=== PATIENT | female | born 1990 | race Caucasian/White ===

== ENCOUNTER → 2021-01-03 08:52 | Outpatient (BNVA) | payer MEDICAID, SELFPAY | PROVIDERS: Visit Provider Obstetrics & Gynecology | DX: O24.419 Gestational diabetes mellitus in pregnancy, unspecified control (principal); Z3A.00 Weeks of gestation of pregnancy not specified | CPT/HCPCS: 83036; 84315; 84443; 85025 ==

== ENCOUNTER → 2021-02-15 10:59 | Outpatient (BNVA) | payer MEDICAID, SELFPAY | PROVIDERS: Visit Provider Obstetrics & Gynecology | DX: O09.899 Supervision of other high risk pregnancies, unspecified trimester (principal); O24.419 Gestational diabetes mellitus in pregnancy, unspecified control | CPT/HCPCS: 84315; 87086 ==

== ENCOUNTER → 2021-03-06 08:29 | Outpatient (BNVA) | payer MEDICAID, SELFPAY | PROVIDERS: Visit Provider Obstetrics & Gynecology | DX: O24.419 Gestational diabetes mellitus in pregnancy, unspecified control (principal); O09.899 Supervision of other high risk pregnancies, unspecified trimester; O40.9XX0 Polyhydramnios, unspecified trimester, not applicable or unspecified; E66.01 Morbid (severe) obesity due to excess calories; Z3A.00 Weeks of gestation of pregnancy not specified | CPT/HCPCS: 84315; 87081 ==

== ENCOUNTER 2021-03-13 11:22 | Outpatient (CLI) | payer MEDICAID, SELFPAY ==
[2021-03-13 11:30] VITALS: BMI 47.6
[2021-03-13 11:35] VITALS: BP 132/77; PULSE 100
[2021-03-13 11:40] VITALS: RESP 18; TEMP 36.8
[2021-03-13 11:57] VITALS: BP 120/77; PULSE 98
[2021-03-13 12:13] VITALS: BP 120/77; PULSE 98
[2021-03-13 12:17] VITALS: BP 124/71; PULSE 95
== END 2021-03-13 12:37 | disposition home or self-care (01) ==
LOC: OBGYN 12:12 → OPOB 13:01 → OBGYN 03-14 10:08
PROVIDERS: Visit Provider Obstetrics & Gynecology
DX: O34.30 Maternal care for cervical incompetence, unspecified trimester (principal); Z3A.00 Weeks of gestation of pregnancy not specified
CPT/HCPCS: 59025; 84315; 99211

== ENCOUNTER → 2021-03-17 08:15 | Outpatient (BNVA) | payer MEDICAID, SELFPAY | PROVIDERS: Visit Provider Obstetrics & Gynecology | DX: O09.899 Supervision of other high risk pregnancies, unspecified trimester (principal); Z3A.00 Weeks of gestation of pregnancy not specified | CPT/HCPCS: 87635 ==

== ENCOUNTER 2021-03-22 19:47 | Inpatient (IN) | payer MEDICAID, SELFPAY ==
[2021-03-22 20:00] VITALS: BMI 47.2
[2021-03-22 20:06] VITALS: BP 135/82; PULSE 110
[2021-03-22 20:20] LABS: Glucose Point of Care 166 mg/dL (70-110)
[2021-03-22 20:40] VITALS: BP 110/69; PULSE 98; RESP 16; TEMP 36.7
[2021-03-22] MEDS: lactated ringers 1,000 ML 125 ML IV (21:15)
[2021-03-22] MEDS: miSOPROStol 100 mcg tablet 25 MCG VAGINAL (21:15)
[2021-03-22 21:21] LABS: Basophils % 0.2 %; Eosinophils # 0.1 10^3/uL (0.0-0.8); Eosinophils % 0.7 %; Hematocrit 38.4 % (37.0-47.0); Hemoglobin 13.2 g/dL (11.5-15.3); Lymphocytes # 1.8 10^3/uL (0.8-4.8); Lymphocytes % 20.1 %; Mean Corpuscular HGB Conc 34.4 g/dL (30.0-36.0); Mean Corpuscular Hemoglobin 29.9 pg (28.0-34.0); Mean Corpuscular Volume 86.9 fL (81-99); Mean Platelet Volume 12.5 fL (7.4-10.4); Monocytes # 0.4 10^3/uL (0.2-0.9); Monocytes % 4.1 %; Neutrophils # 6.59 10^3/uL (1.8-7.7); Neutrophils % 74.6 %; Nucleated Red Blood Cells % 0 %; Platelet Count 188 10^3/cmm (130-400); Red Blood Count 4.42 10^6/uL (4.1-5.3); Red Cell Distribution Width 13.5 % (12.1-15.1); White Blood Count 8.8 10^3/uL (4.0-10.0)
[2021-03-22 21:50] VITALS: BP 104/70; PULSE 98; RESP 16
[2021-03-22 22:56] VITALS: BP 122/89; PULSE 76; RESP 16
[2021-03-22 23:48] VITALS: BP 116/59; PULSE 75; RESP 16; TEMP 36.7
[2021-03-23] VITALS (71 sets, daily range): BP systolic 98–162; BP diastolic 51–92; PULSE 57–100; RESP 16; TEMP 36.6–37; O2SAT 98–100
[2021-03-23 00:05] LABS: Glucose Point of Care 88 mg/dL (70-110)
[2021-03-23] MEDS: miSOPROStol 100 mcg tablet 25 MCG VAGINAL ×3 (01:17→10:40)
[2021-03-23 04:09] LABS: Glucose Point of Care 93 mg/dL (70-110)
[2021-03-23 07:36] LABS: Glucose Point of Care 91 mg/dL (70-110)
--- NOTE | 2021-03-23 07:46 | P.PN_ITS ---
Subjective Subjective: Interval history: The patient has received three doses of cytotec overnight. Her cervix is 1/80/-3 She is doing well. Blood sugars have been normal, with the exception of the admission blood sugar. Vitals/I&O/Wt Last Vital Signs Temp 98.0 F 03/22/21 23:48 Pulse 70 03/23/21 07:30 Resp 16 03/22/21 23:48 BP 104/56 03/23/21 07:30 03/22/21 03/23/21 03/23/21 22:59 06:59 14:59 Intake Total 77.083 / 77.083 187.50 / 264.583 Balance 77.083 / 77.083 187.50 / 264.583 Weight last 48 hrs Weight 293 lb Weight 293 lb Physical Exam Const: COMMON NORMALS: no acute distress, patient oriented x3, no limitations, healthy appearing, alert and well nourished GENERAL APPEARANCE: cooperative, comfortable, well kempt and well developed ORIENTATION/CONSCIOUSNESS: Yes awake, Yes oriented to person, Yes oriented to place and Yes oriented to time GI: COMMON NORMALS: Soft to palpation and non-tender PALPATION: Yes Soft to palpation Extremity: COMMON NORMALS: no pedal edema NARRATIVE EXTREMITY EXAM: 1+ edema present Neuro: COMMON NORMALS: patient oriented x3 SENSORIUM/ORIENTATION: Yes alert, Yes oriented to person, Yes oriented to place and Yes oriented to time Psych: APPEARANCE: Yes well kempt Data : 03/22/21 20:30 A&P Assessment and plan (1) Supervision of other high-risk : plan pitocin induction today anticipate Status: Acute (2) Morbid obesity: Status: Acute (3) Gestational diabetes: Status: Acute Attestations Medical Necessity Statement*: The patient is being admitted for delivery. She will be here at least 2 midnights. Coding Level of Care Code Acute Geotechnical Engineering Technician for Sohan [facility]wkrzyszto[facility] Diagnoses Supervision of other high-risk O09.899 Morbid obesity E66.01 Gestational diabetes O24.419
--- NOTE | 2021-03-23 09:17 | PM.PN ---
Subjective Subjective: Interval history: 30-year-old female with an estimated gestational age at 39 weeks with gestational diabetes. Admitted last night for induction. Vitals/I&O/Wt Last Vital Signs Temp 98.0 F 03/22/21 23:48 Pulse 75 03/23/21 09:10 Resp 16 03/22/21 23:48 BP 113/56 03/23/21 09:10 03/22/21 03/23/21 03/23/21 22:59 06:59 14:59 Intake Total 77.083 / 77.083 187.50 / 264.583 35.417 / 35.417 Balance 77.083 / 77.083 187.50 / 264.583 35.417 / 35.417 Weight last 48 hrs Weight 132.903 kg Weight 132.903 kg Physical Exam Narrative: EXAM NARRATIVE: GA: Alert and oriented ?3. Lungs: Clear to auscultation bilaterally. Heart: Regular rhythm and rate. Abdomen: Gravid, full the height equals dates, nontender. DIRECTOR OF RESPIRATORY THERAPY: SVE; dilation: 1 cm, effacement: 20%, station: -3, presentation: vx, membranes: Intact. Extremities: no edema, no cyanosis, no calves pain. heart tracing: Basal rate: 140 bpm, Variability: Moderate, Accelerations: Present, Decelerations: Absent, Contraction: no. Data : 03/22/21 20:30 A&P Assessment and plan (1) Gestational diabetes: Patient admitted yesterday for induction. Misoprostol given x3, for cervical ripening, current Mai score 2. Will allow patient to have breakfast, & shower. Then one additional misoprostol intravaginally recommended to follow with low dose oxytocin 4 hours after last misoprostol. heart tracing category 1. Anticipate vagnial delivery. Status: Acute Qualifiers: Gestational diabetes mellitus control: oral hypoglycemic-controlled Trimester: third trimester Qualified Code(s): O24.415 - Gestational diabetes mellitus in , controlled by oral hypoglycemic drugs (2) Polyhydramnios: Status: Acute Qualifiers: Fetus number: single or unspecified fetus Trimester: third trimester Qualified Code(s): O40.3XX0 - Polyhydramnios, third trimester, not applicable or unspecified (3) Morbid obesity: Status: Acute Attestations Medical Necessity Statement*: In my professional opinion per admitting diagnosis. Coding Level of Care Code Acute Distribution Systems Superintendent for Chg Fwd Diagnoses Gestational diabetes O24.415 Gestational diabetes mellitus control: oral hypoglycemic-controlled Trimester: third trimester Polyhydramnios O40.3XX0 Fetus number: single or unspecified fetus Trimester: third trimester Morbid obesity E66.01
[2021-03-23 12:02] LABS: Glucose Point of Care 97 mg/dL (70-110)
[2021-03-23] MEDS: oxytocin 30 UNIT/500 ML BAG IV (14:34)
--- NOTE | 2021-03-23 15:17 | PM.PN ---
Subjective Subjective: Interval history: 30-year-old female with an estimated gestational age at 39 weeks with gestational diabetes. Admitted last night for induction. Vitals/I&O/Wt Last Vital Signs Temp 98.6 F 03/23/21 08:00 Pulse 57 L 03/23/21 14:57 Resp 16 03/23/21 10:10 BP 128/60 03/23/21 14:57 03/23/21 03/23/21 03/23/21 06:59 14:59 22:59 Intake Total 187.50 / 264.583 35.417 / 35.417 Balance 187.50 / 264.583 35.417 / 35.417 Weight last 48 hrs Weight 132.903 kg Weight 132.903 kg Physical Exam Narrative: EXAM NARRATIVE: GA: Alert and oriented ?3. Lungs: Clear to auscultation bilaterally. Heart: Regular rhythm and rate. Abdomen: Gravid, full the height equals dates, nontender. TRAVELING SALES EXECUTIVE: SVE; dilation: 1cm, effacement: 80%, station: -3, presentation: vx, membranes: Intact. Extremities: no edema, no cyanosis, no calves pain. heart tracing: Basal rate: 140's bpm, Variability: Moderate, Accelerations: Present, Decelerations: Absent, Contraction: Irregular. Data : 03/22/21 20:30 A&P Assessment and plan (1) Gestational diabetes: Patient admitted yesterday for induction. Misoprostol given x4, for cervical ripening, current Mai score 6. heart tracing category 1. We will start with a low dose oxytocin. Anticipate vagnial delivery. Status: Acute Qualifiers: Gestational diabetes mellitus control: oral hypoglycemic-controlled Trimester: third trimester Qualified Code(s): O24.415 - Gestational diabetes mellitus in , controlled by oral hypoglycemic drugs (2) Polyhydramnios: Status: Acute Qualifiers: Fetus number: single or unspecified fetus Trimester: third trimester Qualified Code(s): O40.3XX0 - Polyhydramnios, third trimester, not applicable or unspecified (3) Morbid obesity: Status: Acute Attestations Medical Necessity Statement*: In my professional opinion per admitting diagnosis Coding Level of Care Code Acute Assurance Engineer for [facility] Diagnoses Gestational diabetes O24.415 Gestational diabetes mellitus control: oral hypoglycemic-controlled Trimester: third trimester Polyhydramnios O40.3XX0 Fetus number: single or unspecified fetus Trimester: third trimester Morbid obesity E66.01
[2021-03-23 16:09] LABS: Glucose Point of Care 86 mg/dL (70-110)
[2021-03-23] MEDS: lactated ringers 1,000 ML 125 ML IV ×2 (16:10→21:00)
[2021-03-23] MEDS: lactated ringers 1,000 ML 999 ML IV (19:56)
--- NOTE | 2021-03-23 20:28 | P.ANESUD_ITS ---
Pre-Anesthetic Update Pre-Anesthetic Assessment: Date of Surgery/Procedure: 03/23/21 Preop Joi gnosis: IUP Any changes to Pre-Anesthetic Assessment?: No Last Intake: 1900 solids and liquids Labs Last 48hrs: Laboratory Results - last 48 hr 03/22/21 03/22/21 03/23/21 20:17 20:30 00:01 WBC 8.8 RBC 4.42 Hgb 13.2 Hct 38.4 MCV 86.9 MCH 29.9 MCHC 34.4 RDW 13.5 Plt Count 188 MPV 12.5 H Neut % (Auto) 74.6 Lymph % (Auto) 20.1 [place] % (Auto) 4.1 Eos % (Auto) 0.7 Baso % (Auto) 0.2 Neut # (Auto) 6.59 Lymph # (Auto) 1.8 [place] # (Auto) 0.4 Eos # (Auto) 0.1 Baso # (Auto) 0.0 Nucleated RBC % (a uto) 0 Nucleated RBCs # 0.0 POC Glucose 166 H 88 03/23/21 03/23/21 03/23/21 04:04 07:04 11:57 WBC RBC Hgb Hct MCV MCH MCHC RDW Plt Count MPV Neut % (Auto) Lymph % (Auto) [place] % (Auto) Eos % (Auto) Baso % (Auto) Neut # (Auto) Lymph # (Auto) [place] # (Auto) Eos # (Auto) Baso # (Auto) Nucleated RBC % (a uto) Nucleated RBCs # POC Glucose 93 91 97 03/23/21 16:05 WBC RBC Hgb Hct MCV MCH MCHC RDW Plt Count MPV Neut % (Auto) Lymph % (Auto) [place] % (Auto) Eos % (Auto) Baso % (Auto) Neut # (Auto) Lymph # (Auto) [place] # (Auto) Eos # (Auto) Baso # (Auto) Nucleated RBC % (a uto) Nucleated RBCs # POC Glucose 86 Vitals: Temperature 97.8 F 03/23/21 19:20 Temperature Source Tympanic 03/23/21 19:20 Pulse Rate 65 03/23/21 20:03 Pulse Rhythm 03/22/21 20:00 Pulse Strength 3+ Normal 03/22/21 20:00 Respiratory Rate 16 03/23/21 17:46 Respiratory Effort Non-Labored 03/22/21 20:00 Respiratory Depth Normal 03/22/21 20:00 Respiratory Patter n 03/22/21 20:00 Blood Pressure 115/60 03/23/21 20:03 Blood Pressure Rhona n 81 03/22/21 21:50 Blood Pressure Pos ition Semi Fowlers 03/22/21 21:50 Oxygen Delivery Me thod 03/23/21 08:15 Exam: Pre-Anes Outpt Exam: alert, oriented x 3 and clear to auscultation bilaterally Cardiac Studies: No Data to Display
[2021-03-23 21:57] LABS: Glucose Point of Care 118 mg/dL (70-110)
[2021-03-24] VITALS (88 sets, daily range): BP systolic 94–171; BP diastolic 47–123; PULSE 68–123; RESP 14–22; TEMP 36.6–37.9; O2SAT 97–100
[2021-03-24 00:20] LABS: Glucose Point of Care 98 mg/dL (70-110)
[2021-03-24 03:03] LABS: Glucose Point of Care 92 mg/dL (70-110)
[2021-03-24] MEDS: lactated ringers 1,000 ML 125 ML IV ×2 (04:40→12:21)
--- NOTE | 2021-03-24 08:43 | ANES.PROC ---
Anesthesia Procedures Procedure/Date: 03/24/21 epidural Epidural: Time Out Performed: Yes Consents Signed: Procedure Consent Consent: requested by attending/covering physician and from patient Lumbar Level: L3-L4 Epidural position: sitting Epidural procedure: sterile prep of area, 1% lidocaine to numb the area, negative for paresthesia passed, test dose given, no systemic response, sterile dressing applied and 0.2% Ropiavacaine @ mls/hr Additional Comments: CHIQUITA at 8 cm, Catheter threaded to 15 cm bolus 1% lidocaine 5 ml (4 attempts.)
--- NOTE | 2021-03-24 08:44 | P.PN_ITS ---
MEDICAL CHEMIST Subjective Subjective: Interval history: The patient had dinner and AROM was performed at 2000 hours due to decelerations with pitocin earlier in the evening. Pitocin was re-started due to ineffective contraction pattern. She received an epidural for pain management and was able to rest most of the night. The patient has made cervical change and is now 8 cm dilation. She continues to have occasional decelerations that are resolved with position changes. Variability is good and patient is ayaz about every 2-3 minutes. Status overall remains very reassuring. Labor: Station: -1 Amniotic Membrane Status: Ruptured Monitor Mode: External Contraction Pattern: Regular Status: Category I Vitals/I&O/Wt Last Vital Signs Temp 99.2 F 03/24/21 04:48 Pulse 90 03/24/21 08:39 Resp 16 03/23/21 17:46 BP 129/58 03/24/21 08:39 Pulse Ox 98 03/23/21 22:16 03/23/21 03/24/21 03/24/21 22:59 06:59 14:59 Intake Total 1608.634 / 9961.871 9848.517 / 2709.568 Output Total 600 / 600 Balance 1608.634 / 1644.051 465.517 / 2109.568 Weight last 48 hrs Weight 293 lb Weight 293 lb Physical Exam Urinary Catheter Management^: Carbajal: Cath Placed During This Visit: yes Reason for Continuing Indwelling Catheter: Required Immobilization for Trauma or Surgery or Anesthesia Urinary Catheter Date of Insertion: 03/23/21 Urinary Catheter Time of Insertion: 21:48 Data : 03/22/21 20:30 A&P Assessment and plan (1) Supervision of other high-risk : continue with pitocin induction plan to start antibiotics if fever or 18 hours of ROM baby is small, vaginal delivery should be possible for this patient anticipate Status: Acute (2) Morbid obesity: Status: Acute (3) Gestational diabetes: Status: Acute Qualifiers: Gestational diabetes mellitus control: oral hypoglycemic-controlled Trimester: third trimester Qualified Code(s): O24.415 - Gestational diabetes mellitus in , controlled by oral hypoglycemic drugs Attestations Medical Necessity Statement*: The patient has been here for two midnights already, through induction. anticipate delivery today. Coding Level of Care Code Acute Analyst Microbiology Lab for g Fwd Diagnoses Supervision of other high-risk O09.899 Morbid obesity E66.01 Gestational diabetes O24.415 Gestational diabetes mellitus control: oral hypoglycemic-controlled Trimester: third trimester
[2021-03-24 08:57] LABS: Glucose Point of Care 92 mg/dL (70-110)
[2021-03-24 13:12] LABS: Glucose Point of Care 100 mg/dL (70-110)
--- NOTE | 2021-03-24 17:40 | PM.OBGYPN ---
CERTIFIED MAINTENANCE WELDER Subjective Subjective: Interval history: The patient has been complete and pushing, then resting and trial of pushing again, for over 2 hours. The baby is getting more caput and is not moving station at all. I have spoken with her about a and she agrees to proceed. I have discussed risks and benefits and alternatives. Labor: Station: +2 Amniotic Membrane Status: Ruptured Monitor Mode: External Contraction Pattern: Regular Status: Category I Vitals/I&O/Wt Last Vital Signs Temp 98.8 F 03/24/21 14:10 Pulse 75 03/24/21 16:25 Resp 22 H 03/24/21 14:10 BP 134/75 03/24/21 16:25 Pulse Ox 98 03/23/21 22:16 03/24/21 03/24/21 03/24/21 06:59 14:59 22:59 Intake Total 1065.517 / 2709.568 1089.584 / 1089.584 100 / 1189.584 Output Total 600 / 600 Balance 465.517 / 2109.568 1089.584 / 1089.584 100 / 1189.584 Weight last 48 hrs Weight 293 lb Weight 293 lb Physical Exam Urinary Catheter Management^: Carbajal: Cath Placed During This Visit: yes Reason for Continuing Indwelling Catheter: Required Immobilization for Trauma or Surgery or Anesthesia Urinary Catheter Date of Insertion: 03/23/21 Urinary Catheter Time of Insertion: 21:48 Data : 03/22/21 20:30 A&P Assessment and plan (1) Supervision of other high-risk : will proceed with section Risks, benefits and alternatives to procedure were discussed with the patient including but not limited to: pain, bleeding, infection, development of a blood clot or pulmonary embolism, damage to bowel, bladder, ureters, blood vessels, formation of scar tissue or even . . These are the most common complications, but there may be other, unforseen complications that could arise during surgery. The patient accepts these risks and desires to proceed. Status: Acute (2) Morbid obesity: Status: Acute (3) Gestational diabetes: Status: Acute Qualifiers: Gestational diabetes mellitus control: oral hypoglycemic-controlled Trimester: third trimester Qualified Code(s): O24.415 - Gestational diabetes mellitus in , controlled by oral hypoglycemic drugs Attestations Medical Necessity Statement*: The patient has already been admitted for two midnights. Coding Level of Care Code Acute Art Preparator for g Fwd Diagnoses Supervision of other high-risk O09.899 Morbid obesity E66.01 Gestational diabetes O24.415 Gestational diabetes mellitus control: oral hypoglycemic-controlled Trimester: third trimester
--- NOTE | 2021-03-24 17:41 | PC.RESP ---
Smoking Cessation information sent to patient.
[2021-03-24] MEDS: metoclopramide 5 mg/mL SDV 2 mL 10 MG IV (17:49)
[2021-03-24] MEDS: famotidine 20 mg/2 mL INJ IVP (17:52)
[2021-03-24] MEDS: lactated ringers 1,000 ML 999 ML IV (17:54)
[2021-03-24] MEDS: citric acid-sodium citrate 30 mL UDC PO (18:03)
--- NOTE | 2021-03-24 19:20 | P.OP_ITS ---
Operative Report Date of procedure: March 24, 2021 Pre-op Diagnosis: IUP at 39 1/7 failure to progress Post-op diagnosis: same Post-op Findings: term female in the ROP presentation Procedure Done: primary Specimens removed/disposition: placenta Pathology: none sent Anesthesia: Epidural Estimated blood loss (mL): 500 IV fluids (mL): 1,000 Urine output (mL): 100 Complications: none Condition: stable Disposition: PACU Procedure: The patient was taken to the operating room where spinal anesthesia was administered and found to be adequate. She was prepped and draped in the normal sterile fashion in the dorsal supine position with a leftward tilt. A Pfannenstiel skin incision was made and carried down to the underlying layer of fascia. The fascia was nicked in the midline and extended laterally with the Sullivan scissors. The fascia was then tented up and the rectus muscles dissected off sharply. The rectus muscles were and the peritoneum entered bluntly with the digit. The peritoneal incision was extended superiorly and inferiorly with good visualization of the bladder. The Kevon O retractor was placed. It was clear of any bowel or omentum. The bladder flap was created sharply with the Metzenbaum scissors. A low transverse uterine incision was made and carried down to the bag of water. The bag of water was ruptured and the uterine incision extended cephalocaudad. The scalp was grasped and brought through the incision. The nose and mouth were bulb suctioned. The shoulders and body delivered atraumatically. The baby was allowed to rest, while being dried, for 1 minute and then the cord was clamped and cut. The baby was handed to the waiting pickers material handlers. The placenta was delivered by expression. The uterus was exteriorized and cleared of all clots and debris. The uterine incision was closed with 0 Vicryl in a running fashion. A second imbricating layer of 3-0 Monocryl was used to close the uterus. The bladder flap was closed with 3-0 Monocryl. There was excellent hemostasis. The Kevon O retractor was removed. The uterus was returned to the abdomen. The peritoneum was closed with 3-0 Monocryl, incorporating the rectus muscle. The fascia was closed with 0 Vicryl in 2 separate sutures overlapping in the midline. The skin was closed with absorbable tamara. Apgars on baby 8 at 1 minute and 9 at 5 minutes. weight 7 pounds 4 ounces. Mother and baby were stable post delivery.
--- NOTE | 2021-03-24 19:55 | PC.NURSE ---
Patient to PP room 9 from OR. JOE RN
[2021-03-24] MEDS: ketorolac 30 mg/mL INJ IVP (20:17)
--- NOTE | 2021-03-24 21:43 | ANE.PACU2 ---
Inpatient post-anesthesia follow up: Airway intact: Yes Vital signs: Temperature 98.3 F Pulse Rate 85 Respiratory Rate 22 Blood Pressure 129/60 Pulse Oximetry 98 Oxygen Delivery Me thod Room Air Oxygen Flow Rate Fraction of Inspir ed Oxygen Hydration adequate: Yes Nausea and vomiting: No Pain level: 2 Mental status: Baseline
[2021-03-24] MEDS: ondansetron 2 mg/ML SDV 2 mL 4 MG IVP (22:58)
[2021-03-24] MEDS: HYDROcodone-acetaminophen 5-325 mg Tablet PO (22:58)
[2021-03-25] VITALS (9 sets, daily range): BP systolic 81–129; BP diastolic 49–93; PULSE 62–92; RESP 12–18; TEMP 36.6–36.7; O2SAT 97–100
[2021-03-25] MEDS: sodium chloride 0.9% 500 ML 999 ML IV ×2 (01:47→06:47)
[2021-03-25] MEDS: lactated ringers 1,000 ML 125 ML IV (01:48)
[2021-03-25] MEDS: oxytocin 30 UNIT/500 ML BAG 20 UNIT IV (01:48)
[2021-03-25] MEDS: ketorolac 30 mg/mL INJ IVP ×2 (02:56→08:30)
--- NOTE | 2021-03-25 04:00 | PC.NURSE ---
Patient to chair with standby assist. Tolerates activity well. Bedding changed by this nurse. AR RN
[2021-03-25] MEDS: docusate sodium 100 mg Capsule PO (08:30)
--- NOTE | 2021-03-25 09:30 | PC.NURSE ---
Pt ambulated in hallway and around OB unit x2. Pt tolerated well and had no complaints light headedness or dizziness.
[2021-03-25] MEDS: ibuprofen 800 mg tablet PO (15:28)
[2021-03-25 17:40] LABS: Hematocrit 33.8 % (37.0-47.0); Hemoglobin 10.6 g/dL (11.5-15.3); Mean Corpuscular HGB Conc 31.4 g/dL (30.0-36.0); Mean Corpuscular Hemoglobin 29.9 pg (28.0-34.0); Mean Corpuscular Volume 95.2 fL (81-99); Mean Platelet Volume 11.9 fL (7.4-10.4); Platelet Count 158 10^3/cmm (130-400); Red Blood Count 3.55 10^6/uL (4.1-5.3); White Blood Count 11.8 10^3/uL (4.0-10.0)
[2021-03-25] MEDS: HYDROcodone-acetaminophen 5-325 mg Tablet PO (19:39)
[2021-03-26] MEDS: HYDROcodone-acetaminophen 5-325 mg Tablet PO ×3 (00:16→10:43)
[2021-03-26] MEDS: docusate sodium 100 mg Capsule PO (08:07)
[2021-03-26] MEDS: ibuprofen 800 mg tablet PO (08:07)
--- NOTE | 2021-03-26 10:11 | P.DS_ITS ---
Discharge Providers EXT JS DEVELOPER Date of Admission: 03/22/21 19:47 Date of Discharge: 03/26/21 Attending Provider at Admission: Lewis Fabian MD Attending Provider at Discharge: Lewis Fabian MD Diagnoses at Discharge Discharge Diagnosis (1) Supervision of other high-risk : Status: Acute (2) Morbid obesity: Status: Acute (3) Gestational diabetes: Status: Acute Qualifiers: Gestational diabetes mellitus control: oral hypoglycemic-controlled Trimester: third trimester Qualified Code(s): O24.415 - Gestational diabetes mellitus in , controlled by oral hypoglycemic drugs Reason for Visit Reason for Visit: IOL Hospital Course Hospital Course Ms. Mckinley is a 30 year old G1 transfer patient with LMP of 06/23/2020, and an LUPE 03/30/2021, based on her LMP and consistent with 9 week ultrasound, placing her at 38 6/7 weeks On admission. has been complicated with gestational diabetes, morbid obesity and polyhydramnios. She was admitted for induction, misoprostol was given for cervical ripening and then she was started on oxytocin. She progressed to fully dilation but failed to descend and a primary delivery was performed without complication. He is status post primary delivery postoperative day 2. Post delivery observation has been uneventful, except for pain as the patient did not take pain medication as scheduled. She is afebrile and hemodynamically stable. Tolerating diet well. Passing flatus. Patient instructed to follow-up with Dr. Bhakta in 2 weeks. Information Peripartum Data: Delivery Method: Physical Exam Narrative: EXAM NARRATIVE: GA; alert and oriented x 3 HEENT: normal Breasts: engorged Nipples - skin intact Lungs; clear to auscultation Heart: regular rhythm, no murmurs. Abd: Appropriately tender. BS+. Uterine fundus below umbilicus. No Fundal Tenderness, incision clean and dry, no redness, pain or edema.. Perineum: normal lochia. Extremities: no edema, no cyanosis, no tenderness. Urinary Catheter Management^: Carbajal: Cath Placed During This Visit: yes, but has since been removed by the nurse Reason for Continuing Indwelling Catheter: Decision to DC Catheter Urinary Catheter Date of Insertion: 03/23/21 Urinary Catheter Time of Insertion: 21:48 Date Urinary Catheter Removed: 03/25/21 Time Urinary Catheter Discontinued: 15:10 Discharge Data Data Completed and Pending: Labs from last 24 hours 03/25/21 17:25 WBC 11.8 H RBC 3.55 L Hgb 10.6 L Hct 33.8 L MCV 95.2 MCH 29.9 MCHC 31.4 RDW 14.0 Plt Count 158 MPV 11.9 H Vitals: Last Vital Signs Temp 97.9 F 03/25/21 09:45 Pulse 66 03/25/21 22:00 Resp 12 03/25/21 22:00 BP 102/67 03/25/21 22:00 Pulse Ox 100 03/25/21 22:00 Discharge Plan Discharge Patient Disposition: Home Condition: Stable Prescriptions: New ibuprofen 800 mg tablet 800 mg PO TID PRN (Reason: pain) Qty: 60 RF: 0 hydrocodone-acetaminophen 5-325 mg tablet 1 tab PO Q4H PRN (Reason: pain) Qty: 30 RF: 0 ferrous sulfate 325 mg (65 mg iron) tablet 325 mg PO BID Qty: 60 RF: 0 acetaminophen 325 mg capsule 325 mg PO Q4H PRN (Reason: fever or pain) Qty: 60 RF: 0 Continued Flintstones Multivitamin Tablet,Chewable 2 tab PO DAILY RF: 0 metformin 500 mg tablet 750 mg PO DAILY RF: 0 (DME) lancets [OneTouch Delica Lancets] 33 gauge misc See Rx Instructions .ROUTE .MEDSUPPLY Qty: 100 RF: 3 (DME) OneTouch Verio test strips Strip See Rx Instructions .ROUTE .MEDSUPPLY Qty: 100 RF: 3 Discharge Orders: Discharge Order (Routine); Ordered 03/26/21 Ordered By: Lewis Fabian Referrals: Linda Bhakta MD [Physician] - 2 weeks Discharge Diet: Diabetic Discharge Activity: Increase activity as tolerated Patient Instructions: Section (DC), Your 's Appearance (DC), Caring for Your Baby (GEN), Lay Person CPR on Newborns (DC), Bleeding (DC), Opioid Safety Activity Restrictions/Additional Instructions: 1. Please call [facility] on next working day to make your post-operative appointment in 2 weeks. 2. Please stay home until you come back to the clinic on first post-operative check up. 3. Please follow instructions on your medications CAREFULLY. 4. If you have abdominal incision, do not cover it unless dressing is necessary because of drainage. OK to shower, but avoid bath. Leave steri-strips until they fall off. If they are still on one week after surgery, you may remove them. 5. If you had vaginal surgery or vaginal repair, Dr. Bhakta may instruct you to take SITZ bath. 6. Yellow, blood tinged odorous vaginal discharge is usually normal after hysterectomy or vaginal surgeries. 7. No sexual intercourse, tampons, or douches until you are completely released from the post-operative care. 8. Avoid constipation by eating right and maybe using some Metamucil or Milk of Magnesia. 9. All prescription refills are given during the working hours. Please do no wait till it runs out. Call the clinic at [phone] before your medication runs out. The clinic will get in touch with your doctor to prescribe medications if necessary. 10. Please remain within 40 mile radius from our hospital because emergencies do happen now and then during the post-operative period. 11. If you have stairs at home, take one step at a time slowly and minimize the number of trips. It helps to stay in one floor for the next few days. No lifting except what you can lift by one hand until you are released from the post-operative care. 12. Driving is discouraged until you are well healed. It may be 3-4 weeks before you feel strong enough to drive. You should be able to turn and look through the rear window without pain and you should be able to push the brake pedal very hard without pain before you drive. No fast rules, but SAFETY should be your primary concern. DO NOT drive if you are on sedating medications such as narcotics. 13. Call the clinic (during working hours) to make urgent appointment or go to the Emergency room, if any of the following occurs: i. Vaginal bleeding becomes heavy, more than a period. ii. Incision becomes red and sore, or drains pus. iii. Your temperature is over 100.4 or you have chill. iv. IV site becomes red and swollen (a little ``knot?? is usually OK) v. Persistent nausea and vomiting vi. Persistent constipation or diarrhea vii. Rash or allergic reaction to medications. Discharge Attestations EXT JS DEVELOPER Time Spent in Discharge Care*: greater than 30 min Coding Level of Care Code Acute Bookkeeping Teacher for Sohan Fwd Diagnoses Supervision of other high-risk O09.899 Morbid obesity E66.01 Gestational diabetes O24.415 Gestational diabetes mellitus control: oral hypoglycemic-controlled Trimester: third trimester
[2021-03-26 10:47] VITALS: BP 109/71; PULSE 71; RESP 15; TEMP 36.4; O2SAT 99
== END 2021-03-26 11:31 | disposition home or self-care (01) | DRG 788 ==
LOC: OBGYN 03-23 01:48 → OPOB 03-23 08:00 → OBGYN 03-23 08:00
PROVIDERS: Obstetrics & Gynecology; Admitting Provider Obstetrics & Gynecology; Visit Provider Obstetrics & Gynecology
PROC: 10D00Z1 Extraction of Products of Conception, Low, Open Approach (ICD-10-PCS; CPT 59514; principal; 2021-03-24 18:00)
DX: O32.4XX0 Maternal care for high head at term, not applicable or unspecified (principal); O24.425 Gestational diabetes mellitus in childbirth, controlled by oral hypoglycemic drugs; O99.214 Obesity complicating childbirth; E66.01 Morbid (severe) obesity due to excess calories; O40.3XX0 Polyhydramnios, third trimester, not applicable or unspecified; O76 Abnormality in fetal heart rate and rhythm complicating labor and delivery; Z3A.38 38 weeks gestation of pregnancy; Z37.0 Single live birth
CPT/HCPCS: 36415; 36416; 51702; 59025; 59409; 82962; 85025; 85027; 96374; 96375; J0690; J1885; J2250; J2274; J2405; J2765; J2795; J3010; J3370; J3490; J7040; J7050

== ENCOUNTER 2021-03-29 13:34 | Emergency (ER) | payer MEDICAID, SELFPAY ==
[2021-03-29 14:08] VITALS: BP 131/74; PULSE 68; RESP 16; TEMP 36.7; O2SAT 100; BMI 41.9
--- NOTE | 2021-03-29 17:13 | ED_ITS ---
HPI - Skin/Abscess/Foreign Bdy General: Chief complaint: Skin/Abscess/Foreign Body Stated complaint: pain and substance coming from incision Time Seen by Provider: 03/29/21 17:05 History of Present Illness: HPI narrative: Patient concerned that her C- section wound is draining. She had a 5 days ago. She denies any fever chills. MD complaint: other ( wound drainage possible) Onset (ago): hour(s) Associated symptoms: Deny chills or fever(s) Review of Systems Const: Denies: fever(s) or chills Skin/Breast: Reports: other (She thinks may be that there is some drainage from her wound.) Psych: Denies: anxiety or depression PFSH ED PFSH: Family History Mother Diabetes Ovarian cyst Grandfather Diabetes maternal Hypertension maternal Stroke maternal Grandmother Diabetes maternal Denies family history of CAD (coronary artery disease) Clotting disorder Hyperlipidemia Chronic kidney disease (CKD) Anesthesia complication Bleeding disorder Cancer Social History Smoking and tobacco status: current every day smoker cigarettes Packs smoked per day: 1 Alcohol intake: never Physical Exam Const: COMMON NORMALS: no acute distress Psych: COMMON NORMALS: mental status grossly normal Skin: OTHER: Surgical incision is intact no drainage no no redness or erythema. Course Vital Signs: Vital signs: Vital Signs Temperature 98.0 F 03/29/21 14:08 Pulse Rate 68 03/29/21 14:08 Respiratory Rate 16 03/29/21 14:08 Blood Pressure 131/74 03/29/21 14:08 Pulse Oximetry 100 03/29/21 14:08 Discharge Plan Discharge Patient Disposition: Home Clinical Impression: Skin wound from surgical incision Condition: Stable Prescriptions: No Action ibuprofen 800 mg tablet 800 mg PO TID PRN (Reason: pain) Qty: 60 RF: 0 hydrocodone-acetaminophen 5-325 mg tablet 1 tab PO Q4H PRN (Reason: pain) Qty: 30 RF: 0 ferrous sulfate 325 mg (65 mg iron) tablet 325 mg PO BID Qty: 60 RF: 0 acetaminophen 325 mg capsule 325 mg PO Q4H PRN (Reason: fever or pain) Qty: 60 RF: 0 docusate sodium [Colace] 100 mg capsule 100 mg PO BID Qty: 60 RF: 0 Discharge Orders: Discharge ED (Routine); Ordered 03/29/21 Ordered By: Lai Deras Discharge Diet: Usual diet Discharge Activity: Resume usual activity Activity Restrictions/Additional Instructions: Follow-up with your MATERIALS BUYER as necessary. Keep wound clean and dry. Coding Level of Care Code ED Licensed Embalmer Supervisor for Sohan Mobley
== END 2021-03-29 17:18 | disposition home or self-care (01) ==
PROVIDERS: Emergency Provider Nurse Practitioner Family
DX: O86.00 Infection of obstetric surgical wound, unspecified (principal); F17.210 Nicotine dependence, cigarettes, uncomplicated
CPT/HCPCS: 99281

== ENCOUNTER → 2021-05-10 13:07 | Outpatient (BNVA) | payer MEDICAID, SELFPAY | PROVIDERS: PCP Nurse Practitioner Family; Visit Provider Nurse Practitioner Family | DX: M47.894 Other spondylosis, thoracic region (principal); M54.5 Low back pain; M54.6 Pain in thoracic spine | CPT/HCPCS: 72072; 72100 ==

== ENCOUNTER → 2021-05-11 14:34 | Outpatient (BNVA) | payer MEDICAID, SELFPAY | PROVIDERS: PCP Nurse Practitioner Family; Visit Provider Obstetrics & Gynecology | DX: Z39.2 Encounter for routine postpartum follow-up (principal); Z30.9 Encounter for contraceptive management, unspecified; Z30.017 Encounter for initial prescription of implantable subdermal contraceptive | CPT/HCPCS: 81000 ==

== ENCOUNTER → 2021-06-30 15:48 | Outpatient (BNVA) | payer MEDICAID, SELFPAY | PROVIDERS: PCP Nurse Practitioner Family; Visit Provider Nurse Practitioner Family | DX: R10.9 Unspecified abdominal pain (principal); K29.00 Acute gastritis without bleeding | CPT/HCPCS: 81000 ==

== ENCOUNTER → 2021-09-05 11:39 | Outpatient (BNVA) | payer MEDICAID, SELFPAY | PROVIDERS: PCP Nurse Practitioner Family; Visit Provider Nurse Practitioner Family | DX: R00.2 Palpitations (principal); Z13.6 Encounter for screening for cardiovascular disorders; R73.9 Hyperglycemia, unspecified | CPT/HCPCS: 80053; 80061; 83036; 84443; 85025 ==

== ENCOUNTER 2021-10-03 16:31 | Outpatient (CLI) | payer MEDICAID, SELFPAY ==
--- NOTE | 2021-10-03 16:45 | MR_ITS ---
WS: [id number] MRI LUMBAR SPINE NONCONTRAST TECHNIQUE: Sagittal T1, T2 and STIR imaging. Axial T1 and T2 imaging. CLINICAL INFORMATION: M54.50 - Low back pain, unspecified COMPARISON: None. FINDINGS: Normal lumbar alignment. No acute compression. Mild disc bulging L4-5 and L5-S1 with tiny annular fis sures. L1-L2: Normal. L2-L3: Normal L3-L4: No significant disc bulging. Spinal canal and foramen are patent. Mild facet arthropathy. L4-L5: Mild annular bulging with a shallow central protrusion and tiny annular tear. Slight effacemen t of ventral thecal sac. Slight impingement traversing right L5 nerve root in the subarticular recess . Mild facet arthropathy. Foramen are patent. L5-S1: Mild annular bulging with slight effacement of the ventral thecal sac. Tiny right pericentral shallow protrusion and tiny annular tear. Slight encroachment on the right S1 nerve root without sign ificant impingement. Spinal canal and foramen are patent. Mild facet arthropathy. Visualized pelvic bony structures: Normal. Paravertebral soft tissues: Normal. MR/MR lumbar spine wo con* [id number] IMPRESSION: 1. Mild lumbar curve. No acute compression. 2. Shallow central protrusion L4-5 with tiny annular fissure and slight imping ement traversing right L5 nerve root. Recommend correlation for right L5 nerve root symptoms. 3. Tiny shallow right pericentral protrusion L5-S1 with a small annular fissur e. Slight encroachment on the right S1 nerve root. 4. Mild facet arthropathy L4-L5 and L5-S1.
== END 2021-10-03 16:32 | disposition home or self-care (01) ==
LOC: RADSHAW 16:35
PROVIDERS: PCP Nurse Practitioner Family; Visit Provider Nurse Practitioner Family
DX: M51.26 Other intervertebral disc displacement, lumbar region (principal); M51.27 Other intervertebral disc displacement, lumbosacral region; M47.816 Spondylosis without myelopathy or radiculopathy, lumbar region; M47.817 Spondylosis without myelopathy or radiculopathy, lumbosacral region
CPT/HCPCS: 72148

== ENCOUNTER → 2021-10-17 08:47 | Outpatient (BNVA) | payer MEDICAID, SELFPAY | PROVIDERS: PCP Nurse Practitioner Family; Referring Provider Nurse Practitioner Family; Visit Provider Physician Assistant | DX: M54.50 Low back pain, unspecified (principal); M51.37 Other intervertebral disc degeneration, lumbosacral region | CPT/HCPCS: 72110 ==

== ENCOUNTER → 2021-10-20 13:55 | Outpatient (BNVA) | payer MEDICAID, SELFPAY | PROVIDERS: PCP Nurse Practitioner Family; Visit Provider Nurse Practitioner Family | DX: R39.9 Unspecified symptoms and signs involving the genitourinary system (principal); N64.4 Mastodynia; R35.0 Frequency of micturition | CPT/HCPCS: 36416; 81000; 81025; 82962 ==

== ENCOUNTER 2021-11-17 06:00 | Outpatient (RCR) | payer MEDICAID, SELFPAY | END 2021-12-04 23:59 | disposition home or self-care (01) | LOC: APT 06:00 | PROVIDERS: PCP Nurse Practitioner Family; Referring Provider Physician Assistant; Visit Provider Physician Assistant | DX: M54.50 Low back pain, unspecified (principal); G89.29 Other chronic pain | CPT/HCPCS: 97110; 97163 ==

== ENCOUNTER 2021-11-24 11:31 | Outpatient (CLI) | payer MEDICAID, SELFPAY ==
--- NOTE | 2021-11-24 11:45 | USCV_ITS ---
Talia Mckinley Age: 31 Gender: F : 1990 Exam Date: 11/24/2021 12:16 Ordering Phys: David Johnson M.D ([email or web address]) Technologist: LEONARD Exam Location: [facility] [place] Indication: PALPITATIONS BP: 122 / 76 HR: 74 Rhythm: Sinus Technical Quality: Adequate MEASUREMENTS (Male / Female) Normal Values 2D ECHO LV Diastolic Diameter PLAX 2.8 cm 4.2 - 5.9 / 3.9 - 5.3 cm LV Systolic Diameter PLAX 1.8 cm IVS Diastolic Thickness 1.1 cm 0.6 - 1.0 / 0.6 - 0.9 cm IVS Systolic Thickness 1.2 cm LVPW Diastolic Thickness 1.7 cm 0.6 - 1.0 / 0.6 - 0.9 cm LVPW Systolic Thickness 1.8 cm LVOT Diameter 2.0 cm LV Ejection Fraction 2D Teich 68.2 % LV Ejection Fraction MOD 2C 68.6 % LV Ejection Fraction 2C AL 68.6 % LA Diameter 3.2 cm LA Width 3.2 cm LA Height 4.5 cm RA Width 3.9 cm RA Height 4.0 cm Aorta at Sinotubular Diameter 2.1 cm M-MODE Aortic Annulus Diameter 2.8 cm LA Ao Ratio MM 1.1 MV E Point Septal Separation 0.4 cm DOPPLER AV Peak Velocity 127.0 cm/s LVOT Peak Velocity 112.0 cm/s AV Area Cont Eq vti 2.7 cm squared AV Area Cont Eq pk 2.8 cm squared MV Area PHT 7.9 cm squared Mitral E to A Ratio 1.4 MV E' Velocity 52.5 cm/s Mitral E to MV E' Ratio 6.2 Mitral E to LV E' Lateral Ratio 6.6 Mitral E to LV E' Septal Ratio 5.8 TR Peak Velocity 216.1 cm/s TR Peak Gradient 18.7 mmHg TR Mean Velocity 184.7 cm/s TR Mean Gradient 13.9 mmHg TR Velocity Time Integral 61.6 cm Right Atrial Pressure 3.0 mmHg Pulmonary Artery Systolic Pressu 21.7 mmHg RV Acceleration Time 0.1 s RV Ejection Time 0.3 s RV AcT/ET 0.4 FINDINGS Left Ventricle Normal left ventricular size, systolic function and wall thickness, with no regional wall motion abnormalities. Left ventricular ejection fraction is estimated at 65 %. Normal diastolic function. Right Ventricle Normal right ventricular size and systolic function. Right ventricular systolic pressure 21.7 mmHg. Right Atrium Normal right atrial size. Left Atrium Normal left atrial size. Mitral Valve Structurally normal mitral valve. No mitral valve stenosis. No mitral valve regurgitation. Aortic Valve Aortic valve not well visualized. No aortic valve stenosis. No aortic valve regurgitation. Tricuspid Valve Structurally normal tricuspid valve. Trace tricuspid valve regurgitation. Pulmonic Valve Pulmonic valve not well visualized. No pulmonary valve stenosis. Trace pulmonary valve regurgitation. Pericardium No pericardial effusion. Aorta Normal size aortic root and proximal ascending aorta. Normal- sized inferior vena cava. CONCLUSIONS 1. Normal left ventricular size, systolic function and wall thickness, with no regional wall motion abnormalities. Left ventricular ejection fraction is estimated at 65 %. Normal diastolic function. 2. Normal right ventricular size and systolic function. 3. Normal pulmonary artery pressure. 4. No significant valvular abnormality. 5. No prior similar studies to compare. Karla Brar MD (Electronically Signed) Final Date: 28 November 2021 16:42 S
== END 2021-11-24 11:32 | disposition home or self-care (01) ==
LOC: RAD 11:33
PROVIDERS: PCP Nurse Practitioner Family; Visit Provider Internal Medicine
DX: R00.2 Palpitations (principal)
CPT/HCPCS: 93306

== ENCOUNTER → 2022-02-07 13:37 | Outpatient (BNVA) | payer MEDICAID, SELFPAY | PROVIDERS: PCP Nurse Practitioner Family; Visit Provider Nurse Practitioner Family | DX: M25.50 Pain in unspecified joint (principal); R53.83 Other fatigue | CPT/HCPCS: 80053; 82306; 82607; 84443; 85025; 85651; 86140; 86160; 86162; 86200; 86235; 86255; 86376; 86431; 86618; 86666; 86757 ==

== ENCOUNTER 2022-03-12 12:28 | Outpatient (CLI) | payer MEDICAID, SELFPAY ==
--- NOTE | 2022-03-12 12:41 | XR_ITS ---
WS: [id number] XR lumbar spine 2-3V* [id number] REASON FOR EXAM: M54.50 - Low back pain, unspecified FINDINGS: Normal alignment on AP and lateral views. No compression deformity or other vertebral body abnormality. Mild narrowing of the L5-S1 disc space. In retrospect there is no significant narrowing of the L4-L5 disc space. No spondylolysis or spondylolisthesis. XR/XR lumbar spine 2-3V* [id number] IMPRESSION: Mild narrowing of the L5-S1 disc space. The examination is unchanged compared to 10/17/2021.
== END 2022-03-12 12:29 | disposition home or self-care (01) ==
PROVIDERS: PCP Nurse Practitioner Family; Visit Provider Nurse Practitioner Family
DX: M54.50 Low back pain, unspecified (principal)
CPT/HCPCS: 72100

== ENCOUNTER → 2022-03-23 09:21 | Outpatient (BNVA) | payer MEDICAID, SELFPAY | PROVIDERS: PCP Nurse Practitioner Family; Visit Provider Nurse Practitioner Family | DX: R73.09 Other abnormal glucose (principal) | CPT/HCPCS: 83036 ==

== ENCOUNTER 2022-03-25 16:28 | Emergency (ER) | payer MEDICAID, SELFPAY ==
[2022-03-25 16:44] VITALS: BP 151/85; PULSE 73; RESP 18; TEMP 36.7; O2SAT 97; BMI 49.7
--- NOTE | 2022-03-25 17:06 | ECG_ITS ---
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 Measurements Intervals [place] Rate: 58 P: 20 OR: 153 QRS: 44 QRSD: 91 T: 37 QT: 419 QTc: 413 Interpretive Statements SINUS BRADYCARDIA No previous ECG available for comparison Electronically Signed On 03-26-2022 8:04:28 CDT by David Johnson M.D. [email or web address]
--- NOTE | 2022-03-25 17:36 | CTR_ITS ---
PROCEDURE INFORMATION: Exam: CT Head Without Contrast Exam date and time: 03/25/2022 6:02 PM Age: 31 years old Clinical indication: Dizziness TECHNIQUE: Imaging protocol: Computed tomography of the head without contrast. Radiation optimization: All CT scans at this facility use at least one of these dose optimization techniques: automated exposure control; mA and/or kV adjustment per patient size (includes targeted exams where dose is matched to clinical indication); or iterative reconstruction. COMPARISON: No relevant prior studies available. RADIATION DOSE METRICS: Total DLP (mGy-cm): 935.25 FINDINGS: Brain: No hemorrhage. Unremarkable white matter. No mass effect. Cerebral ventricles: No ventriculomegaly. Paranasal sinuses: Visualized sinuses clear. Mastoid air cells: Visualized mastoids clear. Bones/joints: Bifrontal hyperostosis. No skull fracture. Soft tissues: Unremarkable. CT/CT head wo con* [id number] IMPRESSION: No acute finding.
--- NOTE | 2022-03-25 17:36 | W.ED.DIZZY ---
HPI - Dizziness General: Chief Complaint: Dizziness Stated Complaint: Dizziness nauseous Time Seen by Provider: 03/25/22 17:05 History of Present Illness: HPI Narrative: Patient is a 31-year-old female comes to the ED with dizziness. Patient says last night she was at her parents house and when they got up to go leave she all of a sudden started feeling dizzy and the room was spinning. She has continued to have the dizziness today. The episodes of dizziness started if she turns her head to the left or right. Symptoms are worse when turning head to the left. She endorses being nauseous but has not had any episodes of emesis. Denies any headache, vision changes or any other neurological deficits. Patient is currently on control and says she had a negative test yesterday. Associated symptoms: Reports nausea; Denies chest pain, chills, headache(s), nasal congestion, palpitations or vomiting Associated neuro symptoms: Deny numbness in extremities Review of Systems Const: Denies: fever(s), chills or fatigue Eyes: Denies: change in vision or eye discomfort ENMT: Denies: throat pain, odynophagia, nasal discharge or nasal congestion Card: Denies: chest pain, palpitations, edema, swelling of feet/ankles, dyspnea on exertion or orthopnea Resp: Denies: dyspnea, productive cough or non-productive cough GI: Reports: nausea; Denies: abdominal pain, vomiting, diarrhea, constipation or hematochezia : Denies: flank pain, dysuria or hematuria Musc: Denies: neck pain, back pain or extremity swelling Skin/Breast: Denies: rash or new lesions Neuro: Reports: dizziness and vertigo; Denies: headache(s), numbness in extremities or weakness in extremities [facility] ED PFSH: 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 Family History Mother Diabetes Ovarian cyst Grandfather Diabetes maternal Hypertension maternal Stroke maternal Grandmother Diabetes maternal Denies family history of CAD (coronary artery disease) Clotting disorder Hyperlipidemia Chronic kidney disease (CKD) Anesthesia complication Bleeding disorder Cancer Social History Smoking and tobacco status: current every day smoker Second hand smoke exposure: No Smoking risk assessment/counseling performed?: No Alcohol intake: never Desire information about alcohol rehabilitation?: No Counseling given: No Desire information about substance/drug rehabilitation?: No Counseling given: No Caregiver/support person: No Lives independently: Yes Physical Exam Const: COMMON NORMALS: no acute distress, patient oriented x3 and alert GENERAL APPEARANCE: cooperative and comfortable HENMT: COMMON NORMALS: normocephalic HEAD & SCALP: normocephalic MOUTH: Normal oral and palatal mucosa present THROAT: posterior oropharynx normal and uvula midline Eye: COMMON NORMALS: Equal, round and reactive pupils present, EOMs intact bilaterally and conjunctivae normal CONJUNCTIVA: Yes conjunctivae normal PUPIL: Yes Equal, round and reactive pupils present OTHER: With eye movement to the left some mild nystagmus was visible. Neck/C-Spine: COMMON NORMALS: supple GENERAL: Yes normal visual inspection Resp: COMMON NORMALS: normal respiratory effort, No retractions, No use of accessory muscles and clear to auscultation bilaterally AUSCULTATION: clear to auscultation bilaterally Cardio: COMMON NORMALS: regular rate, regular rhythm, S1 normal heart sound present, S2 normal heart sound present, No gallops present (Cardio), No clicks present (Cardio), No murmurs present (Cardio) and Peripheral pulses 2+ throughout RATE: regular rate RHYTHM: regular rhythm HEART SOUNDS: S1 normal heart sound present and S2 normal heart sound present PERIPHERAL PULSES: Peripheral pulses 2+ throughout GI: COMMON NORMALS: Normal to inspection, nondistended, normoactive bowel sounds present, Soft to palpation, non-tender and no masses PALPATION: Yes Soft to palpation : COMMON NORMALS: Yes no CVA tenderness BLADDER/KIDNEY EXAM: Yes no CVA tenderness Back/Pelvis: COMMON NORMALS: no CVA tenderness Extremity: COMMON NORMALS: normal to inspection Neuro: COMMON NORMALS: patient oriented x3, CN's II-XII intact bilaterally, moves all extremities, no focal motor deficits and no sensory deficits noted SENSORIUM/ORIENTATION: Yes alert COORDINATION/BALANCE: [id number] test normal SPEECH: speech normal SENSORY EXAM: Yes extremities (intact) MOTOR EXAM: 5/5 motor strength present throughout COORDINATION: [id number] test normal Skin: GENERAL SKIN EXAM: dry skin Course Vital Signs: Vital signs: Vital Signs Temperature 98.1 F 03/25/22 16:44 Pulse Rate 60 03/25/22 19:35 Respiratory Rate 18 03/25/22 19:35 Blood Pressure 142/79 03/25/22 19:35 Pulse Oximetry 99 03/25/22 19:35 MDM - Dizziness Medical Decision Making Patient is a 31-year-old female comes to the ED with dizziness. Symptoms started yesterday evening. Dizziness described as room spinning and worsens when turning her head left or right. Symptoms are the worst and most consistent when turning head to the left. Endorses nausea but no emesis. Denies any chest pain, shortness of breath, vomiting or fevers. Vitals are stable. Neuro exam showed no deficits. Patient does have some nystagmus with eye movement to the left. Labs were unremarkable. EKG showed sinus bradycardia with a rate of [address] segment elevation or depression seen. CT of head showed no acute findings. Patient was given IV 0.5L fluids, Zofran and meclizine and her symptoms improved. Patient's symptoms likely due to BPPV and she was discharged home with a prescription for some meclizine and Zofran for nausea. I sent her home with some instructions on exercises she can do to help with BPPV. She is told to follow-up with her PCP in the next week for reevaluation. Return ED precautions given. Patient is to agree with plan. Lab Data I reviewed the patient's lab results. : 03/25/22 17:55 03/25/22 17:[address] 03/25/22 17:36 IMPRESSION: No acute finding. Laboratory Results WBC 9.2 10^3/uL (4.0-10.0) 03/25/22 17:55 RBC 4.96 10^6/uL (4.1-5.3) 03/25/22 17:55 Hgb 14.6 g/dL (11.5-15.3) 03/25/22 17:55 Hct 44.2 % (37.0-47.0) 03/25/22 17:55 MCV 89.1 fl (81-99) 03/25/22 17:55 MCH 29.4 pg (28.0-34.0) 03/25/22 17:55 MCHC 33.0 g/dL (30.0-36.0) 03/25/22 17:55 RDW 12.3 % (12.1-15.1) 03/25/22 17:55 Plt Count 248 10^3/cmm (130-400) 03/25/22 17:55 MPV 11.5 fL (7.4-10.4) H 03/25/22 17:55 Neut % (Auto) 72.2 % 03/25/22 17:55 Lymph % (Auto) 20.0 % 03/25/22 17:55 [place]on % (Auto) 5.3 % 03/25/22 17:55 Eos % (Auto) 1.3 % 03/25/22 17:55 Baso % (Auto) 1.0 % 03/25/22 17:55 Neut # (Auto) 6.61 10^3/uL (1.8-7.7) 03/25/22 17:55 Lymph # (Auto) 1.8 10^3/uL (0.8-4.8) 03/25/22 17:55 Weston # (Auto) 0.5 10^3/uL (0.2-0.9) 03/25/22 17:55 Eos # (Auto) 0.1 10^3/uL (0.0-0.8) 03/25/22 17:55 Baso # (Auto) 0.1 10^3/uL (0.0-0.1) 03/25/22 17:55 Nucleated RBC % (auto) 0 % 03/25/22 17: Nucleated RBCs # 0.0 /100WBC 03/25/22 17:55 Sodium 136 mmol/L (136-145) 03/25/22 17:55 Potassium 4.4 mmol/L (3.5-5.1) 03/25/22 17:55 Chloride 102 mmol/L (98-107) 03/25/22 17:55 Carbon Dioxide 24 mmol/L (22-29) 03/25/22 17:55 Anion Gap 14.4 (5-19) 03/25/22 17:55 BUN 5 mg/dL (6-20) L 03/25/22 17:55 Creatinine 0.5 mg/dL (0.5-0.9) 03/25/22 17:55 GFR Calculation 145.9 mL/min (90-130) H 03/25/22 17:55 Glucose 136 mg/dL (65-115) H 03/25/22 17:55 POC Glucose 129 mg/dL (70-110) H 03/25/22 17:48 Calculated Osmolality 281 mOsm/kg (285-295) L 03/25/22 17:55 Calcium 8.7 mg/dL (8.5-10.5) 03/25/22 17:55 EKG Data EKG 1: EKG interpretation date: 03/25/22 Interpretation: Sinus bradycardia, 58 bpm, no ST segment elevation or depression seen. Discharge Plan Discharge Patient Disposition: Home Clinical Impression: Benign paroxysmal positional vertigo Qualifiers: Laterality: left Qualified Code(s): H81.12 - Benign paroxysmal vertigo, left ear Condition: Stable Prescriptions: New meclizine 25 mg tablet 25 mg PO BID PRN (Reason: dizziness) Qty: 20 0RF ondansetron 4 mg tablet,disintegrating 4 mg PO Q8H PRN (Reason: nausea and vomiting) Qty: 20 0RF No Action ibuprofen 800 mg tablet 800 mg PO .h.s. 0RF povidone-iodine [Betadine Swabsticks] 10 % swab 1 applic topical ONCE Qty: 150 0RF Nexplanon 68 mg implant subdermal 0RF acetaminophen [Tylenol 8 Hour] 650 mg tablet extended release 650 mg PO Q8H PRN0RF metoprolol tartrate 25 mg tablet 25 mg PO DAILY PRN (Reason: palpitations) Qty: 30 5RF multivitamin [Daily Multi-Vitamin] Tablet 1 tab PO DAILY 0RF cholecalciferol (vitamin D3) 1,250 mcg (50,000 unit) capsule 50,000 unit PO .weekly Qty: 4 5RF prednisone 20 mg tablet 20 mg PO BID Qty: 10 0RF cyclobenzaprine 10 mg tablet 10 mg PO TID Qty: 30 0RF Discharge Orders: Discharge ED (Routine); Ordered 03/25/22 Ordered By: Jeromy Wahl Referrals: Yasmin Bains FNP-C [Primary Care Provider] - Discharge Diet: Regular Discharge Activity: Resume usual activity Patient Instructions: Benign Paroxysmal Positional Vertigo (ED), Dizziness (ED) Activity Restrictions/Additional Instructions: Follow-up with medical provider as directed in the next 5 to 7 days for reevaluation. Take medications as prescribed. Perform BPPV exercises daily to help improve symptoms. Return to the ER or your medical provider if condition worsens. Please read and understand discharge instructions. Thank you for choosing [facility] for your healthcare needs today. Please realize this is an emergency room and that we are providing you with a medical screening exam and this may not be complete and all inclusive of all the testing and or work up that you may need to determine your ailment or severity of your illness. It is very important that you follow up as instructed or that you return to the Emergency Department should you have concerns or if your condition changes or worsens in any way. Coding Level of Care Code ED Filter Press Tender Head for Sohan Fwd Exam Comprehensive
[2022-03-25] MEDS: sodium chloride 0.9% 500 ML 999 ML IV (17:54)
[2022-03-25 18:02] LABS: Basophils # 0.1 10^3/uL (0.0-0.1); Eosinophils # 0.1 10^3/uL (0.0-0.8); Eosinophils % 1.3 %; Hematocrit 44.2 % (37.0-47.0); Hemoglobin 14.6 g/dL (11.5-15.3); Lymphocytes # 1.8 10^3/uL (0.8-4.8); Mean Corpuscular Hemoglobin 29.4 pg (28.0-34.0); Mean Corpuscular Volume 89.1 fl (81-99); Mean Platelet Volume 11.5 fL (7.4-10.4); Monocytes # 0.5 10^3/uL (0.2-0.9); Monocytes % 5.3 %; Neutrophils # 6.61 10^3/uL (1.8-7.7); Neutrophils % 72.2 %; Nucleated Red Blood Cells % 0 %; Platelet Count 248 10^3/cmm (130-400); Red Blood Count 4.96 10^6/uL (4.1-5.3); Red Cell Distribution Width 12.3 % (12.1-15.1); White Blood Count 9.2 10^3/uL (4.0-10.0)
[2022-03-25 18:10] LABS: Glucose Point of Care 129 mg/dL (70-110)
[2022-03-25 18:22] LABS: Blood Urea Nitrogen 5 mg/dL (6-20); Calcium 8.7 mg/dL (8.5-10.5); Carbon Dioxide 24 mmol/L (22-29); Chloride 102 mmol/L (98-107); Glomerular Filtration Rate 145.9 mL/min (90-130); Glucose 136 mg/dL (65-115); Osmolality Calculated 281 mOsm/kg (285-295); Sodium 136 mmol/L (136-145)
[2022-03-25 18:36] LABS: Anion Gap 14.4 (5-19); Potassium 4.4 mmol/L (3.5-5.1)
[2022-03-25] MEDS: meclizine 25 mg tablet 50 MG PO (19:19)
[2022-03-25 19:35] VITALS: BP 142/79; PULSE 60; RESP 18; O2SAT 99
== END 2022-03-25 19:37 | disposition home or self-care (01) ==
PROVIDERS: Emergency Provider Physician Assistant; PCP Nurse Practitioner Family
DX: H81.12 Benign paroxysmal vertigo, left ear (principal); F17.200 Nicotine dependence, unspecified, uncomplicated
CPT/HCPCS: 36416; 70450; 80048; 82962; 85025; 93005; 96360; 99284; J7040; J8597

== ENCOUNTER → 2022-05-10 10:03 | Outpatient (BNVA) | payer MEDICAID, SELFPAY | PROVIDERS: PCP Nurse Practitioner Family; Visit Provider Internal Medicine Rheumatology | DX: M19.90 Unspecified osteoarthritis, unspecified site (principal); R76.8 Other specified abnormal immunological findings in serum; R76.0 Raised antibody titer; E11.9 Type 2 diabetes mellitus without complications | CPT/HCPCS: 99204 ==

== ENCOUNTER → 2022-07-16 14:36 | Outpatient (BNVA) | payer MEDICAID, SELFPAY | PROVIDERS: PCP Nurse Practitioner Family; Visit Provider Nurse Practitioner Family | DX: E11.9 Type 2 diabetes mellitus without complications (principal); M79.7 Fibromyalgia; R52 Pain, unspecified; R20.0 Anesthesia of skin; R20.2 Paresthesia of skin | CPT/HCPCS: 82306; 82607; 83036 ==

== ENCOUNTER → 2022-09-05 15:20 | Outpatient (BNVA) | payer MEDICAID, SELFPAY | PROVIDERS: PCP Nurse Practitioner Family; Visit Provider Internal Medicine Rheumatology | DX: M19.90 Unspecified osteoarthritis, unspecified site (principal); Z79.899 Other long term (current) drug therapy; R76.0 Raised antibody titer; R76.8 Other specified abnormal immunological findings in serum | CPT/HCPCS: 80076; 82085; 82550; 82565; 85025; 85651; 86140 ==

== ENCOUNTER → 2022-10-04 14:30 | Outpatient (BNVA) | payer MEDICAID, SELFPAY | PROVIDERS: PCP Nurse Practitioner Family; Visit Provider Nurse Practitioner Family | DX: R22.30 Localized swelling, mass and lump, unspecified upper limb (principal) | CPT/HCPCS: 73110 ==

== ENCOUNTER 2022-12-21 07:57 | Outpatient (CLI) | payer MEDICAID, SELFPAY ==
--- NOTE | 2022-12-21 09:30 | MR_ITS ---
WS: [id number] MRI HEAD WITHOUT CONTRAST TECHNIQUE: Sagittal T1, T2 axial, T2 axial FLAIR, axial and coronal T1 images, axial susceptibility w eighted imaging, axial diffusion weighted images, and coronal T2 images were obtained. CLINICAL INFORMATION: G43.019 - Migraine without aura, intractable, without sta... COMPARISON: CT head March 25, 2022 FINDINGS: Cerebellar tonsillar ectopia with tonsils approximately 3 to 4 mm below the foramen magnum. Mild little river ding of the foramen magnum. Normal brain stem signal. No hydrocephalus. No restricted diffusion to suggest acute ischemia. Ventricular system and basal cisterns are patent. No suspicious intracranial signal abnormalities. No significant parenchymal volume loss. Normal poste rior fossa. Normal vascular flow voids at the skull base. No extra-axial fluid collections. No eviden ce of mass or mass effect. Shallow sella. Mild mucosal thickening in the frontal sinuses and ethmoid air cells. Mastoid air cells are well aera vera. Normal posterior nasopharynx and parapharyngeal fat. Visualized orbits appear normal. No hemosiderin on the susceptibly weighted images. Normal optic chiasm and pituitary infundibulum. No rmal cavernous sinuses and Meckel's cave. Proximal 7th and 8th cranial nerves appear grossly normal. Temporal lobes and hippocampal formations are normal. MR/MR head wo con* [id number] IMPRESSION: 1. No evidence of restricted diffusion to suggest acute ischemia. 2. No suspicious intracranial signal abnormalities. 3. No hemosiderin on susceptibly weighted images. 4. Cerebellar tonsillar ectopia with tonsils approximately 3-4 mm below the fo ramen magnum. No hydrocephalus. Mild crowding of the foramen magnum. Normal bra in stem signal 5. Normal optic chiasm and pituitary infundibulum. 6. Temporal lobes and hippocampal formations are normal. 7. No other remarkable findings.
== END 2022-12-21 07:58 | disposition home or self-care (01) ==
PROVIDERS: PCP Nurse Practitioner Family; Visit Provider Specialist
DX: G43.019 Migraine without aura, intractable, without status migrainosus (principal)
CPT/HCPCS: 70551

== ENCOUNTER 2022-12-21 08:05 | Outpatient (CLI) | payer MEDICAID, SELFPAY ==
--- NOTE | 2022-12-21 08:30 | US_ITS ---
WS: [id number] ULTRASOUND SOFT TISSUES dorsal RIGHT hand. HISTORY: R22.30 - Localized swelling, mass and lump, unspecified COMPARISON: RIGHT wrist 10/04/2022 TECHNIQUE: 2-D and color Doppler imaging is submitted. Ultrasound is performed over the dorsal hand in the area of the palpable abnormality. There is no abn ormality identified today. No cystic or solid mass. US/US soft tissue/extremity [id number] IMPRESSION: No soft tissue abnormality identified today along the dorsal hand.
== END 2022-12-21 08:06 | disposition home or self-care (01) ==
LOC: RAD 08:07
PROVIDERS: PCP Nurse Practitioner Family; Visit Provider Nurse Practitioner Family
DX: R22.30 Localized swelling, mass and lump, unspecified upper limb (principal)
CPT/HCPCS: 76882

== ENCOUNTER 2023-01-07 19:11 | Emergency (ER) | payer MEDICAID, SELFPAY ==
[2023-01-07 19:16] VITALS: BP 148/95; PULSE 87; RESP 16; TEMP 36.6; O2SAT 99; BMI 48.4
--- NOTE | 2023-01-07 19:19 | XRR_ITS ---
PROCEDURE INFORMATION: Exam: XR Right Foot Exam date and time: 01/07/2023 7:35 PM Age: 32 years old Clinical indication: Injury or trauma; Fall; Swelling (edema); Ankle; Right TECHNIQUE: Imaging protocol: Radiologic exam of the right foot. Views: 3 or more views. COMPARISON: No relevant prior studies available. FINDINGS: Bones/joints: Calcified heel spur. Soft tissues: Normal. XR/XR foot RT min 3V* [id number] IMPRESSION: Negative for fracture or dislocation
--- NOTE | 2023-01-07 19:39 | XRR_ITS ---
PROCEDURE INFORMATION: Exam: XR Right Ankle Exam date and time: 01/07/2023 7:41 PM Age: 32 years old Clinical indication: Injury or trauma; Fall; Swelling (edema); Ankle; Right TECHNIQUE: Imaging protocol: Radiologic exam of the right ankle. Views: 1 or 2 views. COMPARISON: CR (LOW EXM, ) 01/07/2023 7:35 PM FINDINGS: Bones/joints: Calcified heel spur. Distal Achilles tendon degenerative calcification. Chronic rounded corticated 6.6 mm calcification at the fibular tip. Soft tissues: Soft tissue swelling about the ankle. XR/XR ankle RT 2V [id number] IMPRESSION: 1. Negative for fracture or dislocation. 2. Calcified heel spur. 3. Distal Achilles tendon degenerative calcification. 4. Chronic rounded corticated 6.6 mm calcification at the fibular tip. 5. Soft tissue swelling about the ankle.
[2023-01-07] MEDS: HYDROcodone-acetaminophen 5-325 mg Tablet 1 TAB PO (19:45)
--- NOTE | 2023-01-07 19:52 | ED_ITS ---
HPI - Extremity Problem General: Chief complaint: Extremity Injury, Lower Stated complaint: Rt Foot Injury Time Seen by Provider: 01/07/23 19:30 Source: patient Mode of arrival: ambulatory Limitations: no limitations History of Present Illness: 32-year-old female states she is walking downstairs and slipped and felt her right ankle pop roughly 1 to 2 hours before arrival. States she has had pain in that right ankle difficulty walking she rates her pain a 6 out of 10 is improved with rest denies any knee pain denies any hip pain denies any other injuries. Associated symptoms: Deny chest pain, fever(s) or rash Review of Systems Const: Denies: fever(s), chills, body aches or change in appetite Eyes: Denies: blurry vision or eye discomfort ENMT: Denies: throat pain or dental pain Card: Denies: chest pain Resp: Denies: dyspnea GI: Denies: abdominal pain, nausea, vomiting or diarrhea : Denies: dysuria Musc: Reports: extremity pain Skin/Breast: Denies: rash Neuro: Denies: headache(s) Psych: Denies: depression Alli/Lymph: Denies: easy bruising All/Imm: Denies: urticaria PFSH ED 2 PFSH: Medical History Abnormal antibody titer Centromere antibody positive History of ovarian cyst Inflammatory arthritis Positive antinuclear antibody Type 2 diabetes mellitus 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 Surgical History H/O left wrist surgery 2 different surgeries, 2009 & 2010 History of foot surgery right foot, 2015 Hx of cholecystectomy 2014 Family History Mother Diabetes Ovarian cyst Grandfather Diabetes maternal Hypertension maternal Stroke maternal Grandmother Diabetes maternal Denies family history of CAD (coronary artery disease) Clotting disorder Hyperlipidemia Chronic kidney disease (CKD) Anesthesia complication Bleeding disorder Cancer Social History Smoking and tobacco status: never smoked Second hand smoke exposure: No Smoking risk assessment/counseling performed?: No Alcohol intake: never Desire information about alcohol rehabilitation?: No Counseling given: No Desire information about substance/drug rehabilitation?: No Counseling given: No Caregiver/support person: No Lives independently: Yes Physical Exam Const: COMMON NORMALS: no acute distress and patient oriented x3 HENMT: COMMON NORMALS: normocephalic and atraumatic HEAD & SCALP: normocephalic and atraumatic Eye: COMMON NORMALS: conjunctivae normal CONJUNCTIVA: Yes conjunctivae normal Neck/C-Spine: COMMON NORMALS: supple Chest: COMMONS NORMALS: normal inspection of the chest Resp: COMMON NORMALS: normal respiratory effort Cardio: COMMON NORMALS: regular rate RATE: regular rate GI: INSPECTION: Yes normal to inspection Extremity: NARRATIVE EXTREMITY EXAM: Tenderness on the right lateral ankle no obvious deformity distal pulses intact Neuro: COMMON NORMALS: patient oriented x3 Psych: COMMON NORMALS: mental status grossly normal Skin: COMMON NORMALS: no rashes or lesions noted GENERAL SKIN EXAM: no rashes or lesions noted Course Vital Signs: Vital signs: Vital Signs Temperature 97.8 F 01/07/23 19:16 Pulse Rate 87 01/07/23 19:16 Respiratory Rate 16 01/07/23 19:16 Blood Pressure 148/95 01/07/23 19:16 Pulse Oximetry 99 01/07/23 19:16 Oxygen Delivery Me thod 01/07/23 19:16 MDM - Extremity (Nontraumatic) Medical Decision Making Patient presents here with an ankle sprain x-ray shows no obvious fracture we will place Abel wrap and she is to use crutches weight-bear only as tolerated we will get her follow-up with podiatry Discharge Plan Discharge Patient Disposition: Home Clinical Impression: Ankle sprain and strain Condition: Stable Prescriptions: New Naprosyn 500 mg tablet 500 mg PO BID PRN (Reason: pain) Qty: 20 0RF No Action povidone-iodine [Betadine Swabsticks] 10 % swab 1 applic topical ONCE Qty: 150 0RF Nexplanon 68 mg implant subdermal (DME) OneTouch Ultra Test Strip See Rx Instructions .Route Qty: 100 3RF Rx Instructions: once daily (DME) lancets 31 gauge misc See Rx Instructions .Route Qty: 100 3RF Rx Instructions: once daily albuterol sulfate [ProAir HFA] 90 mcg/actuation HFA aerosol inhaler 2 puff inhalation QID PRN (Reason: shortness of breath or wheezing) Qty: 6.7 0RF cholecalciferol (vitamin D3) 1,250 mcg (50,000 unit) capsule 50,000 unit PO .weekly Qty: 4 5RF Discharge Orders: Discharge ED (Routine); Ordered 01/07/23 Ordered By: Kunal Morrow Referrals: Alfonzo Junior DPM [Physician] - 1-3 days Yasmin Bains FNP-C [Primary Care Provider] - Discharge Diet: Advance as tolerated Discharge Activity: Resume usual activity Patient Instructions: Ankle Sprain (ED) Coding Level of Care Code ED 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
[2023-01-07 20:11] VITALS: BP 147/92; PULSE 78; RESP 16; O2SAT 97
--- NOTE | 2023-01-08 09:49 | DCPLANNER ---
Addendum entered by Sarah Luna 01/11/23 08:04: Patient had a follow up appointment scheduled with podiatry - patient did attend appointment. Original Note: engine manager had message to schedule a follow up appointment for patient with podiatry. engine manager sent patients information to the front office staff at podiatry. Patients information will be printed and reviewed. Clinic will call patient with appointment information.
== END 2023-01-07 20:11 | disposition home or self-care (01) ==
PROVIDERS: Emergency Provider Emergency Medicine; PCP Nurse Practitioner Family
DX: S93.401A Sprain of unspecified ligament of right ankle, initial encounter (principal); S96.911A Strain of unspecified muscle and tendon at ankle and foot level, right foot, initial encounter; E11.9 Type 2 diabetes mellitus without complications; W01.0XXA Fall on same level from slipping, tripping and stumbling without subsequent striking against object, initial encounter
CPT/HCPCS: 73600; 73630; 99283; E0114

== ENCOUNTER 2023-01-09 11:42 | Outpatient (CLI) | payer MEDICAID, SELFPAY | END 2023-01-09 11:43 | disposition home or self-care (01) | LOC: SPT 11:43 | PROVIDERS: PCP Nurse Practitioner Family; Visit Provider Podiatrist Foot & Ankle Surgery | DX: Z46.89 Encounter for fitting and adjustment of other specified devices (principal); S82.51XD Displaced fracture of medial malleolus of right tibia, subsequent encounter for closed fracture with routine healing; X58.XXXD Exposure to other specified factors, subsequent encounter | CPT/HCPCS: 97760; L1902 ==

== ENCOUNTER → 2023-02-08 09:00 | Outpatient (BNVA) | payer MEDICAID, SELFPAY | PROVIDERS: PCP Nurse Practitioner Family; Visit Provider Nurse Practitioner Family | DX: E11.9 Type 2 diabetes mellitus without complications (principal) | CPT/HCPCS: 80053; 80061; 83036; 84443; 85025 ==

== ENCOUNTER → 2023-05-15 13:59 | Outpatient (BNVA) | payer MEDICAID, SELFPAY | PROVIDERS: PCP Nurse Practitioner Family; Visit Provider Nurse Practitioner Family | DX: R53.83 Other fatigue (principal); R35.0 Frequency of micturition; E11.9 Type 2 diabetes mellitus without complications | CPT/HCPCS: 80053; 80061; 81000; 82306; 82607; 83036; 83540; 85025 ==

== ENCOUNTER → 2023-08-02 11:08 | Outpatient (BNVA) | payer MEDICAID, SELFPAY | PROVIDERS: PCP Nurse Practitioner Family; Visit Provider Nurse Practitioner Family | DX: R11.0 Nausea (principal) | CPT/HCPCS: 81000; 81025 ==

== ENCOUNTER → 2023-09-12 15:17 | Outpatient (BNVA) | payer MEDICAID, SELFPAY | PROVIDERS: PCP Nurse Practitioner Family; Visit Provider Nurse Practitioner Family | DX: E55.9 Vitamin D deficiency, unspecified (principal); J98.01 Acute bronchospasm; E11.9 Type 2 diabetes mellitus without complications; H65.90 Unspecified nonsuppurative otitis media, unspecified ear; H91.91 Unspecified hearing loss, right ear; J06.9 Acute upper respiratory infection, unspecified | CPT/HCPCS: 80053; 80061; 82306; 83036; 84443; 85025 ==

== ENCOUNTER → 2023-11-07 09:37 | Outpatient (BNVA) | payer MEDICAID, SELFPAY | PROVIDERS: PCP Nurse Practitioner Family; Visit Provider Nurse Practitioner Women's Health | DX: N92.6 Irregular menstruation, unspecified (principal); E28.2 Polycystic ovarian syndrome | CPT/HCPCS: 81025; 84702 ==

== ENCOUNTER 2024-01-24 14:23 | Outpatient (CLI) | payer MEDICAID, SELFPAY ==
--- NOTE | 2024-01-24 15:15 | MR_ITS ---
WS: [id number] MRA HEAD TECHNIQUE: Axial 3-D TOF images obtained with axial images and axial, sagittal, and coronal 2-D refor matted images. CLINICAL INFORMATION: G43.019 - Migraine without aura, intractable, without sta... COMPARISON: None. FINDINGS: Distal vertebral arteries are patent. Basilar artery is patent. Normal vascularity to the MACHINE TOOL BUILDER territo ry bilaterally. Patent RIGHT posterior communicating artery. Both ICAs are patent at the skull base. Normal vascularity to the CHRIS and MCA territories bilaterally . No evidence of proximal flow-limiting stenosis or aneurysm. IMPRESSION: Normal intracranial MRA.
--- NOTE | 2024-01-24 15:30 | MR_ITS ---
WS: [id number] MRI HEAD WITHOUT CONTRAST TECHNIQUE: Sagittal T1, T2 axial, T2 axial FLAIR, axial and coronal T1 images, axial susceptibility w eighted imaging, axial diffusion weighted images, and coronal T2 images were obtained. CLINICAL INFORMATION: G43.019 - Migraine without aura, intractable, without sta... COMPARISON: MRI 12/21/2022 FINDINGS: No evidence of restricted diffusion to suggest acute ischemia. Ventricular system and basal cisterns are patent. No suspicious intracranial signal abnormalities. Normal mello-white differentiat ion. Normal posterior fossa. Normal vascular flow voids at the skull base. No extra-axial fluid colle ctions. No evidence of mass or mass effect. Paranasal sinuses are well aerated. Mastoid air cells are well aerated. No hemosiderin on the susceptibly weighted images. Normal optic chiasm and pituitary infundibulum. Te mporal lobes and hippocampal formations are normal. No other suspicious findings. No significant mtz ge compared to previous. Stable cerebellar tonsillar ectopia. IMPRESSION: 1. No evidence of restricted diffusion to suggest acute ischemia. 2. No suspicious intracranial signal abnormalities. 3. No hemosiderin on susceptibility-weighted images. 4. Incidental cerebellar tonsillar ectopia. This is unchanged from previous. 5. No other suspicious findings.
== END 2024-01-24 14:24 | disposition home or self-care (01) ==
LOC: RAD 14:23
PROVIDERS: PCP Nurse Practitioner Family; Visit Provider Psychiatry & Neurology Neurology
DX: G43.019 Migraine without aura, intractable, without status migrainosus (principal); M62.81 Muscle weakness (generalized); R29.818 Other symptoms and signs involving the nervous system
CPT/HCPCS: 70544; 70551

== ENCOUNTER → 2024-02-27 14:38 | Outpatient (BNVA) | payer MEDICAID, SELFPAY | PROVIDERS: PCP Nurse Practitioner Family; Visit Provider Nurse Practitioner Family | DX: M25.562 Pain in left knee (principal) | CPT/HCPCS: 73562 ==

== ENCOUNTER 2024-03-28 15:19 | Emergency (ER) | payer MEDICAID, SELFPAY ==
--- NOTE | 2024-03-28 15:20 | XRR_ITS ---
PROCEDURE INFORMATION: Exam: XR Chest Exam date and time: 03/28/2024 4:13 PM Age: 33 years old Clinical indication: Pain; Chest pressure; Additional info: Cp TECHNIQUE: Imaging protocol: Radiologic exam of the chest. Views: 1 view. COMPARISON: CR XR thoracic spine 3V* [id number] 05/10/2021 1:06 PM FINDINGS: Lungs: Unremarkable. No consolidation. Pleural spaces: Unremarkable. No pleural effusion. No pneumothorax. Heart/Mediastinum: Unremarkable. No cardiomegaly. Bones/joints: Unremarkable. XR/XR chest 1V portable [id number] IMPRESSION: No acute findings.
--- NOTE | 2024-03-28 15:20 | ECG_ITS ---
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 Measurements Intervals Reyno Rate: 77 P: 66 TN: 154 QRS: 59 QRSD: 98 T: 45 QT: 387 QTc: 439 Interpretive Statements SINUS RHYTHM WITH SINUS ARRHYTHMIA Compared to ECG 03/25/2022 18:27:24 Sinus bradycardia no longer present Electronically Signed On 03-28-2024 20:23:38 CDT by Medina Coronado M.D. [id number]
[2024-03-28 15:27] VITALS: BP 165/87; PULSE 86; RESP 16; TEMP 36.8; O2SAT 100; BMI 47.1
[2024-03-28 16:31] VITALS: BP 159/90; PULSE 66; RESP 17; O2SAT 100
--- NOTE | 2024-03-28 16:42 | ED_ITS ---
Documented by User: DAMON Lauren 03/28/24 17:30 HPI - Chest Pain 2 General: Chief Complaint: Chest Pain Stated Complaint: cp Time Seen by Provider: 03/28/24 16:08 Source: patient Mode of arrival: ambulatory Limitations: no limitations History of Present Illness: Patient is a 33-year-old female presenting to the emergency department complaining of chest pain onset 2 weeks. Pain has been intermittent and is located substernally, and notes it has been accompanied by shortness of breath with the same onset. She is also noting that as of today she began having numbness down her left arm, which concerned her and brought her into the ED. She has no prior episodes of this pain. No personal or family history of strokes, heart attacks, or any other cardiac etiologies at an early age. She herself has not underwent any echocardiogram, cardiac stress test, or cardiac cath. She has no history of diabetes, coronary artery disease, or high cholesterol. She notes that the pain feels like a pressure and states that it feels somewhat similar to prior episodes of heartburn. She also notes that it feels worse after eating and lying flat. She has had her gallbladder removed, and has no personal history of excessive alcohol use or gallstones in the common bile duct. She denies any fever, palpitations, syncope, peripheral edema, or other concerning symptoms at this time. MD complaint: chest pain Onset (ago): week(s) Timing of current episode: episodic Prior episodes: No Onset: during rest Pain location: substernal Quality: other (Pressure) Relieving factors: nothing Exacerbating factors: eating and supine Associated symptoms: Reports dyspnea; Deny abdominal pain, fever(s), nausea, palpitations or vomiting Review of Systems 2 General: Reports: 10 or more systems reviewed and unremarkable except in HPI and below Const: Denies: fever(s), chills or fatigue Eyes: Denies: change in vision ENMT: Denies: throat pain, ear or mastoid pain or nasal discharge Card: Reports: chest pain; Denies: palpitations, swelling of feet/ankles or lightheadedness Resp: Reports: dyspnea; Denies: productive cough or wheezing GI: Denies: abdominal pain, nausea, vomiting, diarrhea or constipation : Denies: flank pain, difficulty voiding, dysuria or urinary frequency Musc: Denies: neck pain, back pain or joint pain Skin/Breast: Denies: rash Neuro: Reports: numbness in extremities; Denies: headache(s) or weakness in extremities PFSH ED 2 PFSH: Medical History Centromere antibody positive Abnormal antibody titer Inflammatory arthritis Positive antinuclear antibody History of ovarian cyst Type 2 diabetes mellitus 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 Surgical History Hx of cholecystectomy 2013 H/O left wrist surgery 2 different surgeries, 2009 & 2010 History of foot surgery right foot, 2015 Family History Mother Diabetes Ovarian cyst Grandfather Diabetes maternal Hypertension maternal Stroke maternal Grandmother Diabetes maternal Denies family history of CAD (coronary artery disease) Clotting disorder Hyperlipidemia Chronic kidney disease (CKD) Anesthesia complication Bleeding disorder Cancer Social History Smoking and tobacco/nicotine status: current every day tobacco/nicotine user cigarettes Packs smoked per day: 1 Alcohol intake: never Substance/Drug Use: never Physical Exam 2 Const: COMMON NORMALS: no acute distress, patient oriented x3 and no limitations GENERAL APPEARANCE: cooperative, comfortable and well developed NUTRITIONAL APPEARANCE: obese ORIENTATION/CONSCIOUSNESS: Yes awake, Yes oriented to person, Yes oriented to place and Yes oriented to time HENMT: COMMON NORMALS: normocephalic, atraumatic and hearing grossly normal bilaterally HEAD & SCALP: normocephalic and atraumatic Eye: COMMON NORMALS: Equal, round and reactive pupils present, EOMs intact bilaterally and conjunctivae normal CONJUNCTIVA: Yes conjunctivae normal P UPIL: Yes Equal, round and reactive pupils present Neck/C-Spine: COMMON NORMALS: full ROM, supple and no JVD Resp: COMMON NORMALS: normal respiratory effort, No retractions, No use of accessory muscles and clear to auscultation bilaterally AUSCULTATION: clear to auscultation bilaterally Cardio: COMMON NORMALS: no JVD, regular rate, regular rhythm, No clicks present (Cardio), No murmurs present (Cardio) and No rub (Cardio) RATE: r egular rate RHYTHM: regular rhythm GI: COMMON NORMALS: Normal to inspection, nondistended, normoactive bowel sounds present and Soft to palpation AUSCULTATION: Yes normoactive bowel sounds PALPATION: Yes Soft to palpation and Yes Tenderness to palpation present (GI) (Mild epigastric tenderness to palpation) RECTAL EXAM: deferred Extremity: COMMON NORMALS: normal to inspection, full ROM and capillary refill normal Neuro: COMMON NORMALS: patient oriented x3, moves all extremities, no focal motor deficits and no sensory deficits noted SENSORIUM/ORIENTATION: Yes oriented to person, Yes oriented to place and Yes oriented to time Psych: COMMON NORMALS: mental status grossly normal and Normal thought process present THOUGHT PROCESS: Normal thought process present Skin: COMMON NORMALS: no rashes or lesions noted GENERAL SKIN EXAM: no rashes or lesions noted Course 2 Vital Signs: Vital signs: Vital Signs Temperature 98.2 F 03/28/24 15:27 Pulse Rate 67 03/28/24 17:34 Respiratory Rate 19 H 03/28/24 17:34 Blood Pressure 151/80 03/28/24 17:34 Pulse Oximetry 100 03/28/24 17:34 Oxygen Delivery Me thod Room Air 03/28/24 16:31 MDM - Chest Pain Medical Decision Making Patient seen in the ED due to 2 weeks of intermittent chest pain, centrally located. No medical history in terms of cardiac etiology or other concerning history to note. Vitals on arrival unremarkable, condition has remained stable throughout ED course. Chest x-ray normal. EKG showed normal sinus rhythm rate 64, no acute ST segment changes. Her baseline troponin was negative, lipase normal. She does have some concerning historical factors for a potential GERD, as she states her pain was notably exacerbated by food and lying flat soon after eating. Also due to her body habitus, I do believe her pain more likely related to this as opposed from cardiac in nature. However I did inform her to follow- up with her primary care to be worked up on an outpatient basis, and will prescribe Pepcid to treat any reflux etiology. Given a GI cocktail in the emergency department prior to discharge. Reasons to return thoroughly discussed. Lab Data 03/28/24 16:37 03/28/24 16:37 Radiology Impressions Chest X-Ray 03/28/24 15:20 IMPRESSION: No acute findings. Laboratory Results WBC 7.60 10^3/uL (3.29-11.43) 03/28/24 16:37 RBC 4.76 10^6/uL (3.85-5.65) 03/28/24 16:37 Hgb 14.30 g/dL (11.27-16.99) 03/28/24 16:37 Hct 43.6 % (36-47) 03/28/24 16:37 MCV 91.6 fl (85-98) 03/28/24 16:37 MCH 30.0 pg (27-33) 03/28/24 16:37 MCHC 32.8 g/dL (30-55) 03/28/24 16:37 RDW 12.2 % (12.1-15.1) 03/28/24 16:37 Plt Count 247 10^3/cmm (157-399) 03/28/24 16:37 MPV 11.0 fL (7.4-10.4) H 03/28/24 16:37 Neut % (Auto) 57.2 % 03/28/24 16:37 Lymph % (Auto) 33.0 % 03/28/24 16:37 Cam[place] % (Auto) 6.6 % 03/28/24 16:37 Eos % (Auto) 2.2 % 03/28/24 16:37 Baso % (Auto) 0.9 % 03/28/24 16:37 Neut # (Auto) 4.34 10^3/uL (1.8-7.7) 03/28/24 16:37 Lymph # (Auto) 2.5 10^3/uL (0.8-4.8) 03/28/24 16:37 [place] # (Auto) 0.5 10^3/uL (0.2-0.9) 03/28/24 16:37 Eos # (Auto) 0.2 10^3/uL (0.0-0.8) 03/28/24 16:37 Baso # (Auto) 0.1 10^3/uL (0.0-0.1) 03/28/24 16:37 Nucleated RBC % (auto) 0 % 03/28/24 16:37 Nucleated RBCs # 0.0 /100WBC 03/28/24 16:37 Sodium 138 mmol/L (136-145) 03/28/24 16:37 Potassium 4.0 mmol/L (3.5-5.1) 03/28/24 16:37 Chloride 104 mmol/L (98-107) 03/28/24 16:37 Carbon Dioxide 26 mmol/L (22-29) 03/28/24 16:37 Anion Gap 12.0 (5-19) 03/28/24 16:37 BUN 4 mg/dL (6-20) L 03/28/24 16:37 Creatinine 0.5 mg/dL (0.5-0.9) 03/28/24 16:37 GFR Calculation 143.9 mL/min (90-130) H 03/28/24 16:37 Glucose 85 mg/dL (65-115) 03/28/24 16:37 Calculated Osmolality 282 mOsm/kg (285-295) L 03/28/24 16:37 Calcium 8.9 mg/dL (8.5-10.5) 03/28/24 16:37 Total Bilirubin 0.5 mg/dL (0.15-1.2) 03/28/24 16:37 AST 17 U/L (0-32) 03/28/24 16:37 ALT 23 U/L (0-33) 03/28/24 16:37 Alkaline Phosphatase 70 U/L (35-105) 03/28/24 16:37 Troponin T Baseline < 6 ng/L (0-10) 03/28/24 16:37 Total Protein 6.8 g/dL (6.6-8.7) 03/28/24 16:37 Albumin 4.1 g/dL (3.5-5.2) 03/28/24 16:37 Globulin 2.7 g/dL (1.3-4.6) 03/28/24 16:37 Lipase 23 U/L (13-60) 03/28/24 16:37 All radiology interpretation(s) finalized by discharge Discharge Plan Discharge Patient Disposition: Home Clinical Impression: Chest pain Condition: Stable Prescriptions: New Pepcid 20 mg tablet 20 mg PO BID Qty: 60 0RF No Action (DME) OneTouch Ultra Test Strip See Rx Instructions .Route Qty: 100 3RF Rx Instructions: once daily escitalopram oxalate [Lexapro] 10 mg tablet 10 mg PO DAILY Qty: 30 5RF buspirone 10 mg tablet 10 mg PO BID Qty: 60 5RF ibuprofen 600 mg tablet 600 mg PO BID Qty: 28 0RF (DME) lancets 31 gauge misc See Rx Instructions .Route Qty: 100 3RF Rx Instructions: once daily albuterol sulfate [ProAir HFA] 90 mcg/actuation HFA aerosol inhaler 2 puff inhalation QID PRN (Reason: shortness of breath or wheezing) Qty: 6.7 2RF Zyrtec 10 mg capsule 10 mg PO DAILY PRN (Reason: allergy symptoms) Qty: 30 11RF Discharge Orders: Discharge ED (Routine); Ordered 03/28/24 Ordered By: Dickson Downey Referrals: Yasmin Bains FNP-C [Primary Care Provider] - Discharge Diet: As Directed Discharge Activity: Increase activity as tolerated Patient Instructions: Chest Pain (ED), GERD (Gastroesophageal Reflux Disease) (ED) Activity Restrictions/Additional Instructions: Pepcid as prescribed. Avoid any triggering foods or drinks. Do not lie flat for at least an hour after you eat. Follow-up with primary care for further outpatient cardiac testing as discussed. Otherwise, monitor for any new or worsening symptoms and return to the emergency department for reevaluation. 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 Surgical History Hx of cholecystectomy 2013 H/O left wrist surgery 2 different surgeries, 2009 & 2010 History of foot surgery right foot, 2015 Family History Mother Diabetes Ovarian cyst Grandfather Diabetes maternal Hypertension maternal Stroke maternal Grandmother Diabetes maternal Denies family history of CAD (coronary artery disease) Clotting disorder Hyperlipidemia Chronic kidney disease (CKD) Anesthesia complication Bleeding disorder Cancer Social History Smoking and tobacco/nicotine status: current every day tobacco/nicotine user cigarettes Packs smoked per day: 1 Alcohol intake: never Substance/Drug Use: never Course 2 Vital Signs: Vital signs: Vital Signs Temperature 98.2 F 03/28/24 15:27 Pulse Rate 67 03/28/24 17:34 Respiratory Rate 19 H 03/28/24 17:34 Blood Pressure 151/80 03/28/24 17:34 Pulse Oximetry 100 03/28/24 17:34 Oxygen Delivery Me thod Room Air 03/28/24 16:31 MDM - Chest Pain Medical Decision Making Patient seen in the ED due to 2 weeks of intermittent chest pain, centrally located. No medical history in terms of cardiac etiology or other concerning history to note. Vitals on arrival unremarkable, condition has remained stable throughout ED course. Chest x-ray normal. EKG showed normal sinus rhythm rate 64, no acute ST segment changes. Her baseline troponin was negative, lipase normal. She does have some concerning historical factors for a potential GERD, as she states her pain was notably exacerbated by food and lying flat soon after eating. Also due to her body habitus, I do believe her pain more likely related to this as opposed from cardiac in nature. However I did inform her to follow- up with her primary care to be worked up on an outpatient basis, and will prescribe Pepcid to treat any reflux etiology. Given a GI cocktail in the emergency department prior to discharge. Reasons to return thoroughly discussed. Chart reviewed Lab Data 03/28/24 16:37 03/28/24 16:37 Radiology Impressions Chest X-Ray 03/28/24 15:20 IMPRESSION: No acute findings. Laboratory Results WBC 7.60 10^3/uL (3.29-11.43) 03/28/24 16:37 RBC 4.76 10^6/uL (3.85-5.65) 03/28/24 16:37 Hgb 14.30 g/dL (11.27-16.99) 03/28/24 16:37 Hct 43.6 % (36-47) 03/28/24 16:37 MCV 91.6 fl (85-98) 03/28/24 16:37 MCH 30.0 pg (27-33) 03/28/24 16:37 MCHC 32.8 g/dL (30-55) 03/28/24 16:37 RDW 12.2 % (12.1-15.1) 03/28/24 16:37 Plt Count 247 10^3/cmm (157-399) 03/28/24 16:37 MPV 11.0 fL (7.4-10.4) H 03/28/24 16:37 Neut % (Auto) 57.2 % 03/28/24 16:37 Lymph % (Auto) 33.0 % 03/28/24 16:37 [place] % (Auto) 6.6 % 03/28/24 16:37 Eos % (Auto) 2.2 % 03/28/24 16:37 Baso % (Auto) 0.9 % 03/28/24 16:37 Neut # (Auto) 4.34 10^3/uL (1.8-7.7) 03/28/24 16:37 Lymph # (Auto) 2.5 10^3/uL (0.8-4.8) 03/28/24 16:37 [place] # (Auto) 0.5 10^3/uL (0.2-0.9) 03/28/24 16:37 Eos # (Auto) 0.2 10^3/uL (0.0-0.8) 03/28/24 16:37 Baso # (Auto) 0.1 10^3/uL (0.0-0.1) 03/28/24 16:37 Nucleated RBC % (auto) 0 % 03/28/24 16:37 Nucleated RBCs # 0.0 /100WBC 03/28/24 16:37 Sodium 138 mmol/L (136-145) 03/28/24 16:37 Potassium 4.0 mmol/L (3.5-5.1) 03/28/24 16:37 Chloride 104 mmol/L (98-107) 03/28/24 16:37 Carbon Dioxide 26 mmol/L (22-29) 03/28/24 16:37 Anion Gap 12.0 (5-19) 03/28/24 16:37 BUN 4 mg/dL (6-20) L 03/28/24 16:37 Creatinine 0.5 mg/dL (0.5-0.9) 03/28/24 16:37 GFR Calculation 143.9 mL/min (90-130) H 03/28/24 16:37 Glucose 85 mg/dL (65-115) 03/28/24 16:37 Calculated Osmolality 282 mOsm/kg (285-295) L 03/28/24 16:37 Calcium 8.9 mg/dL (8.5-10.5) 03/28/24 16:37 Total Bilirubin 0.5 mg/dL (0.15-1.2) 03/28/24 16:37 AST 17 U/L (0-32) 03/28/24 16:37 ALT 23 U/L (0-33) 03/28/24 16:37 Alkaline Phosphatase 70 U/L (35-105) 03/28/24 16:37 Troponin T Baseline < 6 ng/L (0-10) 03/28/24 16:37 Total Protein 6.8 g/dL (6.6-8.7) 03/28/24 16:37 Albumin 4.1 g/dL (3.5-5.2) 03/28/24 16:37 Globulin 2.7 g/dL (1.3-4.6) 03/28/24 16:37 Lipase 23 U/L (13-60) 03/28/24 16:37 Discharge Plan Discharge Patient Disposition: Home Clinical Impression: Chest pain Condition: Stable Prescriptions: New Pepcid 20 mg tablet 20 mg PO BID Qty: 60 0RF No Action (DME) OneTouch Ultra Test Strip See Rx Instructions .Route Qty: 100 3RF Rx Instructions: once daily escitalopram oxalate [Lexapro] 10 mg tablet 10 mg PO DAILY Qty: 30 5RF buspirone 10 mg tablet 10 mg PO BID Qty: 60 5RF ibuprofen 600 mg tablet 600 mg PO BID Qty: 28 0RF (DME) lancets 31 gauge misc See Rx Instructions .Route Qty: 100 3RF Rx Instructions: once daily albuterol sulfate [ProAir HFA] 90 mcg/actuation HFA aerosol inhaler 2 puff inhalation QID PRN (Reason: shortness of breath or wheezing) Qty: 6.7 2RF Zyrtec 10 mg capsule 10 mg PO DAILY PRN (Reason: allergy symptoms) Qty: 30 11RF Discharge Orders: Discharge ED (Routine); Ordered 03/28/24 Ordered By: Dickson Downey Referrals: Yasmin Bains FNP-C [Primary Care Provider] - Discharge Diet: As Directed Discharge Activity: Increase activity as tolerated Patient Instructions: Chest Pain (ED), GERD (Gastroesophageal Reflux Disease) (ED) Activity Restrictions/Additional Instructions: Pepcid as prescribed. Avoid any triggering foods or drinks. Do not lie flat for at least an hour after you eat. Follow-up with primary care for further outpatient cardiac testing as discussed. Otherwise, monitor for any new or worsening symptoms and return to the emergency department for reevaluation. Coding Level of Care Code ED [employer] Officer for Sohan Mobley
[2024-03-28 16:44] LABS: Basophils # 0.1 10^3/uL (0.0-0.1); Basophils % 0.9 %; Eosinophils # 0.2 10^3/uL (0.0-0.8); Eosinophils % 2.2 %; Hematocrit 43.6 % (36-47); Lymphocytes # 2.5 10^3/uL (0.8-4.8); Mean Corpuscular HGB Conc 32.8 g/dL (30-55); Mean Corpuscular Volume 91.6 fl (85-98); Monocytes # 0.5 10^3/uL (0.2-0.9); Monocytes % 6.6 %; Neutrophils # 4.34 10^3/uL (1.8-7.7); Neutrophils % 57.2 %; Nucleated Red Blood Cells % 0 %; Platelet Count 247 10^3/cmm (157-399); Red Blood Count 4.76 10^6/uL (3.85-5.65); Red Cell Distribution Width 12.2 % (12.1-15.1)
[2024-03-28 17:03] LABS: Alanine Aminotransferase 23 U/L (0-33); Albumin Level 4.1 g/dL (3.5-5.2); Alkaline Phosphatase 70 U/L (35-105); Aspartate Amino Transferase 17 U/L (0-32); Blood Urea Nitrogen 4 mg/dL (6-20); Calcium 8.9 mg/dL (8.5-10.5); Carbon Dioxide 26 mmol/L (22-29); Chloride 104 mmol/L (98-107); Globulin 2.7 g/dL (1.3-4.6); Glomerular Filtration Rate 143.9 mL/min (90-130); Glucose 85 mg/dL (65-115); Lipase 23 U/L (13-60); Osmolality Calculated 282 mOsm/kg (285-295); Sodium 138 mmol/L (136-145); Total Bilirubin 0.5 mg/dL (0.15-1.2); Total Protein 6.8 g/dL (6.6-8.7); Troponin(5th) Baseline < 6 ng/L (0-10)
--- NOTE | 2024-03-28 17:20 | ECG_ITS ---
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 Measurements Intervals [place] Rate: 64 P: 34 GA: 164 QRS: 22 QRSD: 95 T: 12 QT: 414 QTc: 427 Interpretive Statements SINUS RHYTHM Compared to ECG 03/25/2022 18:27:24 Sinus bradycardia no longer present Electronically Signed On 03-28-2024 20:27:12 CDT by Medina Coronado M.D. [id number]
[2024-03-28] MEDS: lidocaine 2% viscous 15 ML, aluminum-mag hydrox-simethicon 30 ML, sucralfate oral liq 1 GM PO (17:25)
[2024-03-28 17:34] VITALS: BP 151/80; PULSE 67; RESP 19; O2SAT 100
== END 2024-03-28 17:35 | disposition home or self-care (01) ==
PROVIDERS: Emergency Medicine; Emergency Provider Physician Assistant; PCP Nurse Practitioner Family
DX: R07.9 Chest pain, unspecified (principal); F17.210 Nicotine dependence, cigarettes, uncomplicated; E11.9 Type 2 diabetes mellitus without complications
CPT/HCPCS: 36415; 71045; 80053; 83690; 84484; 85025; 93005; 99285

== ENCOUNTER → 2024-05-29 10:28 | Outpatient (BNVA) | payer MEDICAID, SELFPAY | PROVIDERS: PCP Nurse Practitioner Family; Visit Provider Nurse Practitioner Family | DX: E11.9 Type 2 diabetes mellitus without complications (principal); E55.9 Vitamin D deficiency, unspecified; R53.83 Other fatigue; Z79.899 Other long term (current) drug therapy | CPT/HCPCS: 80053; 80061; 82306; 83036; 84443; 85025 ==

== ENCOUNTER → 2024-06-02 15:07 | Outpatient (BNVA) | payer MEDICAID, SELFPAY | PROVIDERS: PCP Nurse Practitioner Family; Visit Provider Psychiatry & Neurology Neurology | DX: G43.019 Migraine without aura, intractable, without status migrainosus (principal); G25.3 Myoclonus; R29.818 Other symptoms and signs involving the nervous system; M79.604 Pain in right leg; M79.605 Pain in left leg; R20.2 Paresthesia of skin | CPT/HCPCS: 36415; 82085; 82550; 83735 ==

== ENCOUNTER 2024-08-18 00:26 | Emergency (ER) | payer MEDICAID, SELFPAY ==
[2024-08-18 00:30] VITALS: BP 147/100; PULSE 88; RESP 18; TEMP 36.7; O2SAT 100; BMI 46.7
--- NOTE | 2024-08-18 00:31 | ECG_ITS ---
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 Measurements Intervals [place] Rate: 86 P: 56 [place]: 154 QRS: 36 QRSD: 93 T: 34 QT: 364 QTc: 436 Interpretive Statements SINUS RHYTHM WITH SINUS ARRHYTHMIA NONSPECIFIC ST & T-WAVE ABNORMALITY Compared to ECG 03/28/2024 17:20:21 T-wave abnormality now present Electronically Signed On 08-19-2024 01:04:52 CDT by Medina Coronado M.D. [id number]
--- NOTE | 2024-08-18 00:35 | W.ED.GENADLT ---
HPI - General Adult General: Chief complaint: General Medical Stated complaint: High heart rate Time Seen by Provider: 08/18/24 00:28 History of Present Illness: 33-year-old female with a history of obesity, type 2 diabetes mellitus who presents to the emergency room with palpitations and a fast heart rate at home. She is unsure how fast her heart rate was going but she said it was very fast. She felt short of breath. She says she felt lightheaded. She said she is been having some malaise and has not been feeling very well for last few days. No chest pain. No cough. No nausea or vomiting. No abdominal pain. No vaginal bleeding or vaginal discharge Related Data Previous Rx's Medication Instructions Recorded blood sugar diagnostic (OneTouch #100 ea 04/16/22 Ultra Test strips) lancets 31 gauge #100 ea 05/28/22 cetirizine 10 mg capsule (Zyrtec) 10 mg PO DAILY PRN allergy 02/27/24 symptoms #30 caps buspirone 10 mg tablet 10 mg PO BID #60 tabs 03/25/24 escitalopram oxalate 10 mg tablet 10 mg PO DAILY #30 tabs 03/25/24 (Lexapro) famotidine 20 mg tablet (Pepcid) 20 mg PO BID #60 tabs 03/28/24 trazodone 50 mg tablet 50 mg PO DAILY PRN sleep #30 tabs 05/29/24 cholecalciferol (vitamin D3) 1,250 50,000 unit PO .weekly #14 caps 06/02/24 mcg (50,000 unit) capsule albuterol sulfate 90 mcg/actuation 2 puff inhalation QID PRN 07/17/24 aerosol inhaler shortness of breath or wheezing #6.7 grams ibuprofen 600 mg tablet 600 mg PO BID #28 tabs 07/17/24 cefdinir 300 mg capsule 300 mg PO BID 7 days #14 caps 08/18/24 Allergies Allergy/AdvReac Type Severity Reaction Status Date / Time clavulanic acid Allergy extremely Verified 08/18/24 00:35 [From Augmentin] itchy shellfish derived Allergy unknown/diagnosed Verified 08/18/24 00:35 when younger Sulfa (Sulfonamide Allergy hives Verified 08/18/24 00:35 Antibiotics) Review of Systems Narrative: Constitutional symptoms: Negative except as documented in HPI. Skin symptoms: Negative except as documented in HPI. Eye symptoms: Negative except as documented in HPI. ENMT symptoms: Negative except as documented in HPI. Respiratory symptoms: Negative except as documented in HPI. Cardiovascular symptoms: Negative except as documented in HPI. Gastrointestinal symptoms: Negative except as documented in HPI. Genitourinary symptoms: Negative except as documented in HPI. Musculoskeletal symptoms: Negative except as documented in HPI. Neurologic symptoms: Negative except as documented in HPI. Psychiatric symptoms: Negative except as documented in HPI. Endocrine symptoms: Negative except as documented in HPI. 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 Surgical History Hx of cholecystectomy 2013 H/O left wrist surgery 2 different surgeries, 2009 & 2010 History of foot surgery right foot, 2015 Family History Mother Diabetes Ovarian cyst Grandfather Diabetes maternal Hypertension maternal Stroke maternal Grandmother Diabetes maternal Denies family history of CAD (coronary artery disease) Clotting disorder Hyperlipidemia Chronic kidney disease (CKD) Anesthesia complication Bleeding disorder Cancer Social History Smoking and tobacco/nicotine status: current every day tobacco/nicotine user cigarettes Packs smoked per day: 1 Alcohol intake: never Substance/Drug Use: never Female Reproductive History: Date of last menstrual period: 07/14/24 Physical Exam Narrative: EXAM NARRATIVE: General: Alert, no acute distress. Skin: Warm, dry. Head: Normocephalic, atraumatic. Neck: Supple, trachea midline. Eye: Extraocular movements are intact. Ears, nose, mouth and throat: mucosa moist. Cardiovascular: Regular, Normal peripheral perfusion. Respiratory: Lungs are clear to auscultation, respirations are non-labored, breath sounds are equal, Symmetrical chest wall expansion. Gastrointestinal: Soft, Nontender, Non distended Musculoskeletal: Normal ROM, no deformity. Neurological: Alert and oriented, No focal neurological deficit observed. Psychiatric: Cooperative, appropriate mood & affect. Course Vital Signs: Vital signs: Vital Signs Temperature 98.0 F 10/15/24 00:30 Pulse Rate 67 08/18/24 01:24 Respiratory Rate 18 08/18/24 00:30 Blood Pressure 173/81 08/18/24 01:24 Pulse Oximetry 95 08/18/24 01:24 Oxygen Delivery Me thod Room Air 08/18/24 00:30 MDM - General Adult Medical Decision Making Medical decision making: Differential diagnosis including but not limited to and based on the above HPI, review of systems and physical exam: for patient with palpitations: atrial fibrillation with rapid ventricular response. ventricular tachycardia. sinus tachycardia. PVCs. also concern for underlying issues causing tachycardia. Infection, electrolyte abnormalities and thyroid issues Orders placed to evaluate differential diagnosis based on the above differential, HPI and physical exam EKG: Time 0031 AM. Rate 86. Normal sinus rhythm, No ST-T changes, no ectopy, normal PA & QRS intervals, This was reviewed and interpreted by myself the ER physician at 0034 AM Lab Review: Laboratory results were reviewed and interpreted by myself the emergency room physician. No leukocytosis. No anemia. BUN/creatinine are normal at 6 and 0.6. Glucose is slightly high at 160. Urinalysis positive for urinary tract infection. Patient is negative for holden flu and RSV. hCG is 1500. This would be appropriate for a 4 to 5-week . I reviewed the patient's medical record. Reexamination: Patient remained stable. No increased work of breathing. No altered mental status. No focal motor deficits. Assessment and plan: Urinary tract infection Palpitations Early IV Rocephin in the emergency room. - Discharged home - Discussed plan with patient. Answered any questions. - Evaluation and treatment of this problem were appropriate in the emergency setting. Lab Data 08/18/24 00:50 08/18/24 00:50 Laboratory Results WBC 9.82 10^3/uL (3.29-11.43) 08/18/24 00:50 RBC 4.51 10^6/uL (3.85-5.65) 08/18/24 00:50 Hgb 13.30 g/dL (11.27-16.99) 08/18/24 00:50 Hct 40.7 % (36-47) 08/18/24 00:50 MCV 90.2 fl (85-98) 08/18/24 00:50 MCH 29.5 pg (27-33) 08/18/24 00:50 MCHC 32.7 g/dL (30-55) 08/18/24 00:50 RDW 12.5 % (12.1-15.1) 08/18/24 00:50 Plt Count 232 10^3/cmm (157-399) 08/18/24 00:50 MPV 11.0 fL (7.4-10.4) H 08/18/24 00:50 Neut % (Auto) 58.1 % 08/18/24 00:50 Lymph % (Auto) 31.7 % 08/18/24 00:50 [place] % (Auto) 7.5 % 08/18/24 00:50 Eos % (Auto) 1.9 % 08/18/24 00:50 Baso % (Auto) 0.6 % 08/18/24 00:50 Neut # (Auto) 5.70 10^3/uL (1.8-7.7) 08/18/24 00:50 Lymph # (Auto) 3.1 10^3/uL (0.8-4.8) 08/18/24 00:50 [place] # (Auto) 0.7 10^3/uL (0.2-0.9) 08/18/24 00:50 Eos # (Auto) 0.2 10^3/uL (0.0-0.8) 08/18/24 00:50 Baso # (Auto) 0.1 10^3/uL (0.0-0.1) 08/18/24 00:50 Nucleated RBC % (auto) 0 % 08/18/24 00:50 Nucleated RBCs # 0.0 /100WBC 08/18/24 00:50 Sodium 138 mmol/L (136-145) 08/18/24 00:50 Potassium 3.8 mmol/L (3.5-5.1) 08/18/24 00:50 Chloride 105 mmol/L (98-107) 08/18/24 00:50 Carbon Dioxide 23 mmol/L (22-29) 08/18/24 00:50 Anion Gap 13.8 (5-19) 08/18/24 00:50 BUN 6 mg/dL (6-20) 08/18/24 00:50 Creatinine 0.6 mg/dL (0.5-0.9) 08/18/24 00:50 GFR Calculation 116.6 mL/min (90-130) 08/18/24 00:50 Glucose 160 mg/dL (65-115) H 08/18/24 00:50 Calculated Osmolality 287 mOsm/kg (285-295) 08/18/24 00:50 Calcium 9.0 mg/dL (8.5-10.5) 08/18/24 00:50 Magnesium 1.6 mg/dL (1.7-2.3) L 08/18/24 00:50 Total Bilirubin 0.3 mg/dL (0.15-1.2) 08/18/24 00:50 AST 13 U/L (0-32) 08/18/24 00:50 ALT 17 U/L (0-33) 08/18/24 00:50 Alkaline Phosphatase 57 U/L (35-105) 08/18/24 00:50 Troponin T Baseline < 6 ng/L (0-10) 08/18/24 00:50 Total Protein 5.9 g/dL (6.6-8.7) L 08/18/24 00:50 Albumin 3.9 g/dL (3.5-5.2) 08/18/24 00:50 Globulin 2.0 g/dL (1.3-4.6) 08/18/24 00:50 Ser , Semi-Qnt 1506.00 mIU/mL 08/18/24 00:50 Urine Color Yellow (Yellow) 08/18/24 00:58 Urine Appearance Cloudy (CLEAR) A 08/18/24 00:58 Urine pH 6.0 (5-7) 08/18/24 00:58 Ur Specific [place] 1.021 (1.005-1.030) 08/18/24 00:58 Urine Protein Negative (Negative) 08/18/24 00:58 Urine Glucose (UA) Negative (Normal) 08/18/24 00:58 Urine Ketones Trace (Negative) 08/18/24 00:58 Urine Blood Negative (Negative) 08/18/24 00:58 Urine Nitrate Negative (Negative) 08/18/24 00:58 Urine Bilirubin Negative (Negative) 08/18/24 00:58 Urine Urobilinogen 1.0 mg/dL (Negative) 08/18/24 00:58 Ur Leukocyte Esterase 1+ (Negative) A 08/18/24 00:58 Urine RBC 0-2 /hpf (0-2) 08/18/24 00:58 Urine WBC 11-20 /hpf (0-5) H 08/18/24 00:58 Ur Squamous Epith Cells 6-10 /hpf (0-5) 08/18/24 00:58 Amorphous Sediment Not Reportable 08/18/24 00:58 Urine Bacteria 3+ /hpf (NONE) H 08/18/24 00:58 Hyaline Casts 3.30 /lpf 08/18/24 00:58 Coronavirus (PCR) Negative (Negative) 08/18/24 00:50 Influenza A (PCR) Negative (Negative) 08/18/24 00:50 Influenza Type B (PCR) Negative (Negative) 08/18/24 00:50 RSV (PCR) Negative (Negative) 08/18/24 00:50 No radiology studies performed this visit Discharge Plan Discharge Patient Disposition: Home Clinical Impression: Urinary tract infection, Palpitations, at early stage Condition: Stable Prescriptions: New cefdinir 300 mg capsule 300 mg PO BID 7 Days Qty: 14 0RF No Action (DME) OneTouch Ultra Test Strip See Rx Instructions .Route Qty: 100 3RF Rx Instructions: once daily cholecalciferol (vitamin D3) 1,250 mcg (50,000 unit) capsule 50,000 unit PO .weekly Qty: 14 4RF escitalopram oxalate [Lexapro] 10 mg tablet 10 mg PO DAILY Qty: 30 5RF buspirone 10 mg tablet 10 mg PO BID Qty: 60 5RF trazodone 50 mg tablet 50 mg PO DAILY PRN (Reason: sleep) Qty: 30 0RF (DME) lancets 31 gauge misc See Rx Instructions .Route Qty: 100 3RF Rx Instructions: once daily Zyrtec 10 mg capsule 10 mg PO DAILY PRN (Reason: allergy symptoms) Qty: 30 11RF ibuprofen 600 mg tablet 600 mg PO BID Qty: 28 2RF albuterol sulfate 90 mcg/actuation HFA aerosol inhaler 2 puff inhalation QID PRN (Reason: shortness of breath or wheezing) Qty: 6.7 2RF Pepcid 20 mg tablet 20 mg PO BID Qty: 60 0RF Discharge Orders: Discharge ED (Routine); Ordered 08/18/24 Ordered By: Anitha Benson Referrals: Yasmin Bains FNP-C [Primary Care Provider] - Discharge Diet: Usual diet Discharge Activity: Increase activity as tolerated Patient Instructions: Urinary Tract Infection in (ED) Activity Restrictions/Additional Instructions: Thank you for choosing [facility] [place] for your healthcare needs today. Please realize this is an emergency room and that we are providing you with a medical screening exam and this may not be complete and all inclusive of all the testing and or work up that you may need to determine your ailment or severity of your illness. You have been screened and evaluated and felt safe for discharge. Health conditions do change or evolve sometimes and as such it is important that you follow up with your Primary Doctor to be re checked, 3-5 days is a general good time frame for follow up. You are always welcome to return to the ED for re assessment if your symptoms are worsening or you have new concerns Coding Level of Care Code ED It Consulting Director for Sohan Mobley
[2024-08-18 00:58] LABS: Basophils # 0.1 10^3/uL (0.0-0.1); Basophils % 0.6 %; Eosinophils # 0.2 10^3/uL (0.0-0.8); Eosinophils % 1.9 %; Hematocrit 40.7 % (36-47); Lymphocytes # 3.1 10^3/uL (0.8-4.8); Lymphocytes % 31.7 %; Mean Corpuscular HGB Conc 32.7 g/dL (30-55); Mean Corpuscular Hemoglobin 29.5 pg (27-33); Mean Corpuscular Volume 90.2 fl (85-98); Monocytes # 0.7 10^3/uL (0.2-0.9); Monocytes % 7.5 %; Neutrophils % 58.1 %; Nucleated Red Blood Cells % 0 %; Platelet Count 232 10^3/cmm (157-399); Red Blood Count 4.51 10^6/uL (3.85-5.65); Red Cell Distribution Width 12.5 % (12.1-15.1); White Blood Count 9.82 10^3/uL (3.29-11.43)
[2024-08-18 01:07] LABS: Bilirubin Urine Negative (Negative); Blood Urine Negative (Negative); Glucose Urine UA Negative (Normal); Ketones Urine Trace (Negative); Leukocyte Esterase Urine 1+ (Negative); Nitrate Urine Negative (Negative); Protein Urine Negative (Negative); Specific Gravity, Urine 1.021 (1.005-1.030); Urine Appearance Cloudy (CLEAR); Urine Color Yellow (Yellow)
[2024-08-18 01:12] LABS: Bacteria Urine 3+ /hpf; RBC Urine 0-2 /hpf (0-2)
[2024-08-18 01:15] LABS: Add Urine Culture? Yes
[2024-08-18 01:17] LABS: Troponin(5th) Baseline < 6 ng/L (0-10)
[2024-08-18 01:24] VITALS: BP 173/81; PULSE 67; O2SAT 95
[2024-08-18 01:28] LABS: Alanine Aminotransferase 17 U/L (0-33); Albumin Level 3.9 g/dL (3.5-5.2); Alkaline Phosphatase 57 U/L (35-105); Anion Gap 13.8 (5-19); Aspartate Amino Transferase 13 U/L (0-32); Blood Urea Nitrogen 6 mg/dL (6-20); Carbon Dioxide 23 mmol/L (22-29); Chloride 105 mmol/L (98-107); Creatinine Clr Calc Pharmacy 189.1536; Glomerular Filtration Rate 116.6 mL/min (90-130); Glucose 160 mg/dL (65-115); Magnesium 1.6 mg/dL (1.7-2.3); Osmolality Calculated 287 mOsm/kg (285-295); Potassium 3.8 mmol/L (3.5-5.1); Sodium 138 mmol/L (136-145); Total Bilirubin 0.3 mg/dL (0.15-1.2); Total Protein 5.9 g/dL (6.6-8.7)
[2024-08-18 01:30] LABS: Covid PCR NEGATIVE (Negative); Influenza A NEGATIVE (Negative); Influenza B NEGATIVE (Negative); Respiratory Syncytial Virus Ce NEGATIVE (Negative)
[2024-08-18] MEDS: cefTRIAXone 1,000 MG in water for injection-sterile 2.1 ML 2.1 MG IM (02:02)
[2024-08-18] MEDS: diphenhydrAMINE 50 mg Capsule PO (02:32)
[2024-08-18 02:43] VITALS: BP 147/100; PULSE 103; O2SAT 100
== END 2024-08-18 02:42 | disposition home or self-care (01) ==
PROVIDERS: Emergency Provider Emergency Medicine; PCP Nurse Practitioner Family
DX: O26.891 Other specified pregnancy related conditions, first trimester (principal); R00.2 Palpitations; O23.41 Unspecified infection of urinary tract in pregnancy, first trimester; N39.0 Urinary tract infection, site not specified; Z11.52 Encounter for screening for COVID-19; Z3A.01 Less than 8 weeks gestation of pregnancy; O24.111 Pre-existing type 2 diabetes mellitus, in pregnancy, first trimester; O99.331 Smoking (tobacco) complicating pregnancy, first trimester; F17.210 Nicotine dependence, cigarettes, uncomplicated
CPT/HCPCS: 0241U; 36415; 80053; 81001; 83735; 84484; 84702; 85025; 87086; 93005; 96372; 99284; J0696; Q0163

== ENCOUNTER → 2024-08-26 08:29 | Outpatient (BNVA) | payer MEDICAID, SELFPAY | PROVIDERS: PCP Nurse Practitioner Family; Visit Provider Nurse Practitioner Family | DX: Z34.91 Encounter for supervision of normal pregnancy, unspecified, first trimester (principal); E11.9 Type 2 diabetes mellitus without complications; Z91.013 Allergy to seafood; N39.0 Urinary tract infection, site not specified | CPT/HCPCS: 80053; 80061; 81000; 82306; 82785; 83036; 83735; 84443; 85025; 86003 ==

== ENCOUNTER → 2024-08-31 12:56 | Outpatient (BNVA) | payer MEDICAID, SELFPAY | PROVIDERS: PCP Nurse Practitioner Family; Visit Provider Nurse Practitioner Women's Health | DX: O26.859 Spotting complicating pregnancy, unspecified trimester (principal) | CPT/HCPCS: 84702 ==

== ENCOUNTER → 2024-09-03 09:34 | Outpatient (BNVA) | payer MEDICAID, SELFPAY | PROVIDERS: PCP Nurse Practitioner Family; Visit Provider Nurse Practitioner Women's Health | DX: Z36.87 Encounter for antenatal screening for uncertain dates (principal); O20.8 Other hemorrhage in early pregnancy; N83.12 Corpus luteum cyst of left ovary; Z3A.01 Less than 8 weeks gestation of pregnancy | CPT/HCPCS: 76801; 84315; 84702; 86850; 86900 ==

== ENCOUNTER → 2024-09-24 11:00 | Outpatient (BNVA) | payer MEDICAID, SELFPAY | PROVIDERS: PCP Nurse Practitioner Family; Visit Provider Nurse Practitioner Women's Health | DX: Z34.91 Encounter for supervision of normal pregnancy, unspecified, first trimester (principal) | CPT/HCPCS: 80307; 83036; 84315; 84443; 85025; 86592; 86762; 86803; 86850; 86900; 87086; 87340; 87491; 87591; 87806 ==

== ENCOUNTER → 2024-10-13 13:54 | Outpatient (BNVA) | payer MEDICAID, SELFPAY | PROVIDERS: PCP Nurse Practitioner Family; Visit Provider Obstetrics & Gynecology | DX: Z34.90 Encounter for supervision of normal pregnancy, unspecified, unspecified trimester (principal) | CPT/HCPCS: 84315; 87624 ==

== ENCOUNTER → 2024-10-16 14:12 | Outpatient (BNVA) | payer MEDICAID, SELFPAY | PROVIDERS: PCP Nurse Practitioner Family; Visit Provider Obstetrics & Gynecology | DX: Z34.80 Encounter for supervision of other normal pregnancy, unspecified trimester (principal) | CPT/HCPCS: 82950 ==

== ENCOUNTER 2025-03-09 13:17 | Outpatient (CLI) | payer MEDICAID, SELFPAY ==
[2025-03-09 13:24] VITALS: BP 131/77; PULSE 93
[2025-03-09 13:30] VITALS: BMI 29.7
[2025-03-09 13:40] VITALS: BP 107/60; PULSE 77
== END 2025-03-09 13:50 | disposition home or self-care (01) ==
LOC: OPOB 13:18 → OBGYN 13:19
PROVIDERS: PCP Nurse Practitioner Family; Visit Provider Family Medicine
DX: O24.419 Gestational diabetes mellitus in pregnancy, unspecified control (principal); Z3A.00 Weeks of gestation of pregnancy not specified
CPT/HCPCS: 59025; 99211

== ENCOUNTER 2025-03-15 13:06 | Outpatient (CLI) | payer MEDICAID, SELFPAY ==
[2025-03-15 13:10] VITALS: BP 143/72; PULSE 76
[2025-03-15 13:25] VITALS: BP 118/64; PULSE 75
[2025-03-15 13:40] VITALS: BP 118/64; PULSE 75; RESP 17
== END 2025-03-15 13:40 | disposition home or self-care (01) ==
LOC: OPOB 13:07 → OBGYN 13:08
PROVIDERS: PCP Nurse Practitioner Family; Visit Provider Family Medicine
DX: O36.8190 Decreased fetal movements, unspecified trimester, not applicable or unspecified (principal); O24.419 Gestational diabetes mellitus in pregnancy, unspecified control; Z3A.00 Weeks of gestation of pregnancy not specified
CPT/HCPCS: 59025; 99211

== ENCOUNTER 2025-03-19 13:28 | Outpatient (CLI) | payer MEDICAID, SELFPAY ==
[2025-03-19 13:32] VITALS: BMI 43.7
[2025-03-19 13:58] VITALS: BP 129/61; PULSE 83
[2025-03-19 14:17] VITALS: BP 122/74; PULSE 83
== END 2025-03-19 14:25 | disposition home or self-care (01) ==
LOC: OPOB 13:30 → OBGYN 13:31
PROVIDERS: PCP Nurse Practitioner Family; Visit Provider Family Medicine
DX: O24.419 Gestational diabetes mellitus in pregnancy, unspecified control (principal); Z3A.00 Weeks of gestation of pregnancy not specified
CPT/HCPCS: 59025; 99211

== ENCOUNTER 2025-03-22 16:58 | Outpatient (CLI) | payer MEDICAID, SELFPAY ==
[2025-03-22 17:00] VITALS: BMI 39.1
[2025-03-22 17:03] VITALS: BP 147/74; PULSE 96
[2025-03-22 17:24] VITALS: BP 128/66; PULSE 89
[2025-03-22 17:34] VITALS: BP 128/66; PULSE 89; RESP 16; O2SAT 98
== END 2025-03-22 17:35 | disposition home or self-care (01) ==
LOC: OPOB 16:59 → OBGYN 17:00
PROVIDERS: PCP Nurse Practitioner Family; Visit Provider Family Medicine
DX: O24.419 Gestational diabetes mellitus in pregnancy, unspecified control (principal); Z3A.00 Weeks of gestation of pregnancy not specified
CPT/HCPCS: 59025; 99211

== ENCOUNTER 2025-03-25 10:50 | Outpatient (CLI) | payer MEDICAID, SELFPAY ==
[2025-03-25 10:52] VITALS: BMI 43.7
[2025-03-25 10:56] VITALS: BP 119/66; PULSE 70
[2025-03-25 11:26] VITALS: BP 120/62; PULSE 68
[2025-03-25 11:41] VITALS: BP 125/65; PULSE 69
[2025-03-25 11:43] VITALS: BP 120/62; PULSE 68; RESP 15
== END 2025-03-25 11:44 | disposition home or self-care (01) ==
LOC: OPOB 10:51 → OBGYN 10:52
PROVIDERS: PCP Nurse Practitioner Family; Visit Provider Family Medicine
DX: O24.419 Gestational diabetes mellitus in pregnancy, unspecified control (principal); Z3A.00 Weeks of gestation of pregnancy not specified
CPT/HCPCS: 59025; 99211

== ENCOUNTER 2025-03-28 14:57 | Outpatient (CLI) | payer MEDICAID, SELFPAY ==
[2025-03-28 15:01] VITALS: BP 119/70; PULSE 78
[2025-03-28 15:03] VITALS: RESP 16; TEMP 36.9
[2025-03-28 15:05] VITALS: BMI 44.1
[2025-03-28 15:25] VITALS: BP 120/69; PULSE 72
== END 2025-03-28 15:29 | disposition home or self-care (01) ==
LOC: OPOB 14:57 → OBGYN 14:58
PROVIDERS: PCP Nurse Practitioner Family; Visit Provider Family Medicine
DX: O24.419 Gestational diabetes mellitus in pregnancy, unspecified control (principal); Z3A.00 Weeks of gestation of pregnancy not specified
CPT/HCPCS: 59025

== ENCOUNTER 2025-04-01 12:45 | Outpatient (CLI) | payer MEDICAID, SELFPAY ==
[2025-04-01 12:55] VITALS: BP 137/78; PULSE 69
[2025-04-01 12:58] VITALS: RESP 18
[2025-04-01 13:10] VITALS: BP 127/69; PULSE 78
[2025-04-01 13:25] VITALS: BP 129/71; PULSE 76
[2025-04-01 13:40] VITALS: BP 133/78; PULSE 72
[2025-04-01 14:22] VITALS: RESP 18
--- NOTE | 2025-04-01 14:24 | USR_ITS ---
PROCEDURE INFORMATION: Exam: US Biophysical Profile Without Non-Stress Test Exam date and time: 04/01/2025 3:03 PM Age: 34 years old Clinical indication: Other: Gdm; ; Additional info: Nonreactive nst- gdm TECHNIQUE: Imaging protocol: US biophysical profile without non-stress testing. COMPARISON: [place] [id number] 01/13/2025 2:43 PM FINDINGS: Limitations: Limited scanning of the gravid uterus was performed. Gestation: Single intrauterine gestation. heart rate: 142 bpm position: Cephalic Placenta: Placenta location: Anterior Amniotic fluid index: LISSA is 14.13 cm. BIOPHYSICAL PROFILE: breathing (BPP): 2 /2 gross body movement (BPP): 2 /2 tone (BPP): 2 /2 Amniotic fluid (BPP): 2 /2 Biophysical profile score (BPP): 8 /8 MATERNAL ANATOMY: Cervix: Cervical length measures 3.4 cm. US/US OB BPP wo NST [id number] IMPRESSION: Biophysical profile score is 8 out of 8.
== END 2025-04-01 15:20 | disposition home or self-care (01) ==
LOC: OPOB 12:50 → OBGYN 12:51
PROVIDERS: PCP Nurse Practitioner Family; Visit Provider Family Medicine
DX: O24.419 Gestational diabetes mellitus in pregnancy, unspecified control (principal); Z3A.00 Weeks of gestation of pregnancy not specified
CPT/HCPCS: 59025; 76819

== ENCOUNTER 2025-04-04 13:30 | Outpatient (CLI) | payer MEDICAID, SELFPAY ==
[2025-04-04 13:48] VITALS: BP 117/66; PULSE 88
[2025-04-04 14:02] LABS: Nitrazine Paper, PH Negative
[2025-04-04 14:12] VITALS: BP 117/67; PULSE 93
== END 2025-04-04 14:14 | disposition home or self-care (01) ==
LOC: OPOB 13:35 → OBGYN 13:36
PROVIDERS: PCP Nurse Practitioner Family; Visit Provider Family Medicine
DX: O24.419 Gestational diabetes mellitus in pregnancy, unspecified control (principal); Z3A.00 Weeks of gestation of pregnancy not specified
CPT/HCPCS: 59025; 83986; 99211

== ENCOUNTER 2025-04-13 04:57 | Inpatient (IN) | payer MEDICAID, SELFPAY ==
[2025-04-13] VITALS (13 sets, daily range): BP systolic 100–120; BP diastolic 40–69; PULSE 61–89; RESP 15–16; TEMP 36.3–36.7; O2SAT 98–100; BMI 44.4
--- OUTSIDE RECORDS SUMMARY | 2025-04-13 05:00 | XMS_ITS | Data Portability ---
Author Organization [facility], [place]hil[place], [facility] Address [address] [address] Assessment No assessment recorded. Plan of Treatment Reminders Order Date Submit Date Provider Last Modified By Organization Details Last Modified Time Details Appointments None recorde d. Lab culture , urine 025 03/18/20 Somo [facility], [address] [address], [address] [place], [address], 5 20:26:19 Referral None recorde d. Procedures None recorde d. Surgeries None recorde d. Imaging US, obstetr ic, follow- up - [id number] 03/04/[address] [place] [address], [address] [place] [address], [address], 5 12:15:35 Medication Orders neomyci n-polym yxin-hy drocort 3.5 mg-10,0 00 unit/mL -1 % ear drops,s alf 025 04/06/[address] [place] [address] Drug Store, [address], [place], [address], 5 14:42:46 Patient TargetsNo targets recorded. Patient InstructionsNo instructions recorded. Reason for Referral None Reported. Results Created Date Observation Date Name Description Value Unit Range Abnormal Flag Note LastModifiedBy Organization Detail LastModifiedTime 03/18/20 25 03/19/2025 CULTU RE, URINE , ROUTI NE culture, urine, routine SEE NOTE CULTU RE, URINE , ROUTI NE Micro Numbe r: [id number] Test Statu s: Final Speci men Sourc e: Urine Speci men Quali ty: Adequ ate Resul t: Mixed genit al ac isola vera. These super ficia l bacte azam are not indic ative of a urina ry tract infec tion. No furth er organ ism ident ifica tion is warra nted on this speci men. If clini tari indic ated, recol lect clean -catc h, mid-s tream urine and trans katelynn immed iatel y to Urine Cultu re Trans port Tube. Not Available [facility] [address] [place], [address], 03/19/2025 20:26:19 02/19/20 25 02/17/2025 , obste tric, follo w-up No observ ation record ed. [email or web address] Not Available 02/19 10:46:57 03/23/20 25 03/18/2025 US, obste tric, follo w-up No observ ation record ed. Not Available 03/24 08:59:13 04/01/20 25 04/01/2025 US, obste tric No observ ation record ed. [address] [place], [address], 04/12/2025 10:15:39 Result Notes None recorded. Problems Name Problem SNOMED Code Status Onset Date Resolution Date Notes Provider Name and Address Organization Details Recorded Time 68669689 Active 2024 THONG dowling [facility] 5 15:00:24 Gestational diabetes mellitus 50628923 Active THONG dowling [facility] 5 15:00:16 Gestational diabetes mellitus 22885888 Active THONG dowling [facility] 5 15:00:16 Past history of section 355315135 Active 2024 THONG dowling [facility] 5 15:00:21 Past history of section 703955052 Active 2024 [facility] 5 15:00:21 Morbid obesity 702551446 Active 2024 [facility] 5 15:00:18 Morbid obesity 704223145 Active 2024 [facility] 5 15:00:18 Problem Notes None recorded. Procedures Surgical History Date Name Laterality Status Provider Name and Address Organization Details Recorded Time procedure on ankle completed [facility] 11/26/2024 14:43:13 delivery completed [facility] 11/26/2024 14:43:19 Imaging Results None recorded. Procedure Notes None recorded. Medical Equipment None Reported. Allergies Allergen ID Allergen Name Allergen Category Reaction Reaction Severity Criticality Documentation Date Start Date Code Code System Note Provider Name and Address Organization Details Recorded Time 64302 Augmentin medicatio n Not available Not available Not available 11/26/2024 31946 2 RxNorm [facility] 14:38:09 80956 Substance with sulfonami de structure and antibacte rial mechanism of action (substanc e) medicatio n Not available Not available Not available 11/26/2024 03158 8003 SNOMED [facility] 14:38:16 Medications Name Sig Start Date Stop Date Status Note LastModified by Organization Details LastModified Time cetirizine 10 mg tablet TAKE ONE TABLET BY MOUTH DAILY NEEDED for allergies active Not Available Not Available No t Available OneTouch Ultra Test strips Use 4 strips daily to check sugar levels, 4 times daily 2024 active Not Available Not Available Not Avai lable buspirone 10 mg tablet TAKE ONE TABLET BY MOUTH TWICE DAILY 11/26 completed Not Available Not Available Not Available ibuprofen 600 mg tablet TAKE ONE TABLET BY MOUTH TWICE DAILY 11/26 completed Not Available Not Available Not Available cefdinir 300 mg capsule TAKE ONE CAPSULE BY MOUTH TWICE DAILY FOR 7 DAYS 11/26 completed Not Available Not Available Not Available Ventolin HFA 90 mcg/actuati on aerosol inhaler INHALE TWO PUFFS INTO LUNGS FOUR TIMES DAILY NEEDED SHORTNESS OF BREATH OR WHEEZING 11/26 completed Not Available Not Available Not Available neomycin-po lymyxin-hyd rocort 3.5 mg-10,000 unit/mL-1 % ear drops,susp INSTILL 4 DROPS INTO AFFECTED EAR(S) BY OTIC ROUTE 3 TIMES PER DAY for 7 days 2024 active Not Available Not Available Not Avai lable escitalopra m 10 mg tablet TAKE ONE TABLET BY MOUTH DAILY 11/26 completed Not Available Not Available Not Available metformin ER 750 mg tablet,exte nded release 24 hr TAKE ONE TABLET BY MOUTH DAILY FOR A WEEK, THEN 2 TABLETS DAILY active Not Available Not Available No t Available cholecalcif katerina (vitamin D3) 1,250 mcg (50,000 unit) capsule TAKE ONE CAPSULE BY MOUTH WEEKLY 11/26 completed Not Available Not Available Not Available OneTouch Ultra2 Meter USE DIRECTED active Not Available Not Available No t Available OneTouch Delica Plus Lancet 33 gauge USE ONCE DAILY active Not Available Not Available No t Available Vitals Date Recorded Body height Body mass index (BMI) Body weight Body temperature Oxygen saturation Oxygen saturation in Arterial blood by Pulse oximetry Heart rate Systolic blood pressure Diastolic blood pressure Provider Name and Address Organization Details Last Updated DateTime 5 170.18 cm 43.2 kg/m2 723636. 49 g 98.2 [degF] 98 % 98 % 97 /min 122 mm[Hg] 65 mm[Hg] JOEY HOWE [facility] 5 16:04:12 Date Recorded Body height Body mass index (BMI) Body weight Body temperature Oxygen saturation Oxygen saturation in Arterial blood by Pulse oximetry Heart rate Systolic blood pressure Diastolic blood pressure Provider Name and Address Organization Details Last Updated DateTime 5 170.18 cm 43.7 kg/m2 873440. 27 g 98.4 [degF] 98 % 98 % 73 /min 100 mm[Hg] 78 mm[Hg] JOEY HOWE [facility] 5 11:44:43 Date Recorded Body height Body mass index (BMI) Body weight Body temperature Oxygen saturation Oxygen saturation in Arterial blood by Pulse oximetry Heart rate Systolic blood pressure Diastolic blood pressure Provider Name and Address Organization Details Last Updated DateTime 170.18 cm 43.5 kg/m2 251407. 68 g 98.2 [degF] 99 % 99 % 80 /min 130 mm[Hg] 70 mm[Hg] JOEY HOWE [facility] 5 11:04:49 Date Recorded Body height Body mass index (BMI) Body weight Body temperature Oxygen saturation Oxygen saturation in Arterial blood by Pulse oximetry Heart rate Systolic blood pressure Diastolic blood pressure Provider Name and Address Organization Details Last Updated DateTime 170.18 cm 44.2 kg/m2 793210. 05 g 98.2 [degF] 99 % 99 % 78 /min 120 mm[Hg] 75 mm[Hg] JOEY HOWE [facility] 11:32:35 Social History Question Answer Notes LastModified by Tesora Details LastModified Time Tobacco Smoking Status Current [facility] 11/26/2024 14:42:33 What Was The Date Of Your Most Recent Tobacco Screening? 04/06/2025 [email or web address] Information not available 04/06/2025 How Much Tobacco Do You Smoke? 0.5 PPD Information not available 11/26/2024 Sex: Unknown Functional Status Question Answer Note LastModified by Tesora Details LastModified Time Do you use any illicit or recreational drugs? No [email or web address] Information not available 11/26/2024 What is your level of alcohol consumption? None [email or web address] Information not available 11/26/2024 Mental Status None recorded. Family History Relationship Description Onset Age of this Age Resolved Age Notes LastModified by Organization Details LastModified Time Father No current problems or disability [email or web address] Not available 10/2025 16:05:52 Mother No current problems or disability [email or web address] Not available 10/2025 16:05:52 Medical History Condition Response Coronary Artery Disease N Other N Gout N Kidney Stones N Blood Diseases N Hyperthyroidism N Breast Cancer N Blood Transfusion N Depression N Hypothyroidism N Lung Disease N COPD N Developmental or Behavioral Disorders N Defects or Inherited Disease N Breast Problem N Difficulty Swallowing N Anesthesia Complications N Anxiety Disorder N Meniere's disease N Muscle, Joint, or Bone Problems N Vision or Eye Problems N Arthritis N Infertility N Polyps N Cancer N Stroke N Varicosities N Endometriosis N Bladder or Kidney Problems N High Cholesterol N Liver Disease N Fibromyalgia N Headaches N Kidney Disease N Allergies/Hayfever Y Heart Problems N Ear or Hearing Problems N Hospitalizations N Thyroid Problems N GI Problems N ADD/ADHD N Skin Problems N Eating Disorder N Anemia N Constipation N Mental Illness N Ovarian Cancer N Diabetes Y Bedwetting N Seizures/Epilepsy N Tuberculosis N Eczema N Diverticulitis N Abuse/Domestic Violence N Asthma N Reflux/GERD N Hepatitis N Heart Disease N Pulmonary Embolism N Pre-Eclampsia N Hypertension N Chronic Ear Infections N Osteoporosis N Chicken Pox N Autism Spectrum Disorder (ASD) N Thrombophilias N Gynecological History Statement/Question Response Abnormal Pap N Date of Last Pap Smear Date of LMP 07/14/2024 LMP Definite Obstetrics History GPAL:G 2 P 1 0 0 1 Type Value Full Term 1 Living 1 Total 2 Immunizations Vaccine Type Date Status Note Provider Nam e and Address Organization Details Recorded Time Hep B, unspecified formulation 2 completed Not Available [facility] 04/06/2025 11:04:01 OPV 3 completed Not Available [facility] 04/06/2025 11:04:01 Hib (HbOC) 3 completed Not Available [facility] 04/06/2025 11:04:01 DTP 3 completed Not Available [facility] 04/06/2025 11:04:01 Hep B, unspecified formulation 3 completed Not Available [facility] 04/06/2025 11:04:01 DTP 3 completed Not Available [facility] 04/06/2025 11:04:01 Hep B, unspecified formulation 3 completed Not Available [facility] 04/06/2025 11:04:01 Hib (HbOC) 3 completed Not Available [facility] 04/06/2025 11:04:01 OPV 3 completed Not Available [facility] 04/06/2025 11:04:01 DTP 4 completed Not Available [facility] 04/06/2025 11:04:01 Hib (HbOC) 4 completed Not Available [facility] 04/06/2025 11:04:01 DTP 4 completed Not Available [facility] 04/06/2025 11:04:01 MMR 4 completed Not Available [facility] 04/06/2025 11:04:01 OPV 4 completed Not Available [facility] 04/06/2025 11:04:01 Hib (HbOC) 4 completed Not Available [facility] 04/06/2025 11:04:01 DTaP 8 completed Not Available [facility] 04/06/2025 11:04:01 MMR 8 completed Not Available [facility] 04/06/2025 11:04:01 OPV 8 completed Not Available [facility] 04/06/2025 11:04:01 Tdap 9 completed Not Available [facility] 04/06/2025 11:04:01 Tdap 1 completed Not Available [facility] 04/06/2025 11:04:01 Past Encounters Encounter ID Performer Location Encounter Start Date Encounter Closed Date Diagnosis/Indication Diagnosis SNOMED-CT Code Diagnosis ICD10 Code Diagnosis Note [id number] Renetta Mederos MD [facility] ([facility]) [address] [place] [address] [id number] 5 11/26/2024 14:27:31 12/01/2024 16:21:51 Gestation period, 19 weeks 58906981 Z3A.19 Normal pre gnancy in multigravida 6271283860 88296 Z34.82 Gestationa l diabetes mellitus 08065990 O24.410 suspect Type 2 diabetic but pt states only during . I discussed with the patient that insulin is typically the medication of choice for diabetes during . I am willing to try her on metformin however if her sugars are not controlled and she does require insulin then she will be referred to [facility]. Patient is aware and okay with this. She was given a blood sugar log and instructed how to check her sugars 4 times daily including 1 hour postprandi als. Deliveries by 150944191 O82 Patient had failure to progress for her first section therefore I discussed repeat section. [id number] Renetta Mederos MD [facility] ([facility]) [address] [place] [address] [id number] 5 12/10/2024 16:01:27 12/14/2024 10:46:21 [id number] Renetta Mederos MD [facility] ([facility]) [address] [place] [address] [id number] 5 12/17/2024 16:26:45 12/25/2024 07:58:36 Gestation period, 22 weeks 33970906 Z3A.22 Normal pre gnancy in multigravida 0825537799 80285 Z34.82 Gestationa l diabetes mellitus 34115843 O24.410 The patient brings her blood sugar log with her. Her postprandi als are nearly all at goal. Her fastings are high 90s. She states that she has only been able to take one of the metformin. We discussed trying to take 2 at a different time of day and waiting another week or so for side effects to settle down. So far been happy with her blood sugars. She needs to continue 4 times daily blood sugar checks. 12/17/2024 High risk 4720 0007 O09.92 [id number] Renetta Mederos MD [facility] ([facility]) [address] [place] [address] [phone] 5 01/13/2025 15:58:07 01/14/2025 08:11:07 Gestation period, 26 weeks 58736213 Z3A.26 Gestationa l diabetes mellitus 21264741 O24.410 The patient brings her blood sugar log with her. Her postprandi als are nearly all at goal. Her fastings are high 90s. She states that she has only been able to take one of the metformin. We discussed trying to take 2 at a different time of day and waiting another week or so for side effects to settle down. So far been happy with her blood sugars. She needs to continue 4 times daily blood sugar checks. 12/17/2024 brings her log today. postprandi als are great. fastings are 80-90's. she is still only able to take 1 metformin daily. continues to lose weight due to following her diabetic diet. 01/13/25 High risk 4720 0007 O09.92 GDM (vs DM2) Past pregn maegan history of section 750021919 Z98.890 discussed repeat . Morbid obesity 064428151 E66.01 [id number] Renetta Mederos MD [facility] ([facility]) [address] [place] [address] [phone] 5 01/13/2025 15:17:35 01/15/2025 13:33:01 ultrasound scan abnormal 4490361140 9109 O28.3 [id number] Renetta Mederos MD [facility] ([facility]) [address] [place] [address] [phone] 5 02/17/2025 16:00:52 02/18/2025 07:31:43 Gestation period, 31 weeks 44693090 Z3A.31 Gestationa l diabetes mellitus 62547771 O24.410 The patient brings her blood sugar log with her. Her postprandi als are nearly all at goal. Her fastings are high 90s. She states that she has only been able to take one of the metformin. We discussed trying to take 2 at a different time of day and waiting another week or so for side effects to settle down. So far been happy with her blood sugars. She needs to continue 4 times daily blood sugar checks. 12/17/2024 brings her log today. postprandi als are great. fastings are 80-90's. she is still only able to take 1 metformin daily. continues to lose weight due to following her diabetic diet. 01/13/25 pt forgot her BS log but reports they are 'good'. she was advised to bring her log to her next visit and she was provided with one. had growth u/s today, results pending. 02/17/25 High risk 4720 0007 O09.92 GDM (vs DM2) Past pregn maegan history of section 456361925 Z98.890 discussed repeat . scheduled for April 13 at 7 am. Sterilizat ion requested [id number] Z30.2 signed m-caid form. [id number] Renetta Mederos MD [facility] ([facility]) [address] [place] [address] [id number] 5 02/17/2025 14:49:22 02/18/2025 07:31:36 [id number] Renetta Mederos MD [facility] ([facility]) [address] [place] [address] [id number] 5 03/04/2025 15:50:06 03/16/2025 20:50:26 Gestation period, 33 weeks 17069825 Z3A.33 Multigravida 535378336 Z 34.83 Gestationa l diabetes mellitus 45530345 O24.410 The patient brings her blood sugar log with her. Her postprandi als are nearly all at goal. Her fastings are high 90s. She states that she has only been able to take one of the metformin. We discussed trying to take 2 at a different time of day and waiting another week or so for side effects to settle down. So far been happy with her blood sugars. She needs to continue 4 times daily blood sugar checks. 12/17/2024 brings her log today. postprandi als are great. fastings are 80-90's. she is still only able to take 1 metformin daily. continues to lose weight due to following her diabetic diet. 01/13/25 pt forgot her BS log but reports they are 'good'. she was advised to bring her log to her next visit and she was provided with one. had growth u/s today, results pending. 02/17/25 EFW 76%tile. will need another for growth and in 2 weeks. start twice weekly NST next week. 03/04/25 High risk 4720 0007 O09.92 GDM (vs DM2) Past pregn maegan history of section 579480752 Z98.890 discussed repeat . scheduled for April 13 at 7 am. Sterilizat ion requested [id number] Z30.2 signed m-caid form. 95694617 Z33.1 [id number] Renetta Mederos MD [facility] ([facility]) [address] [place] [address] [id number] 5 03/18/2025 11:30:42 03/19/2025 10:23:06 Gestation period, 35 weeks 90809377 Z3A.35 Multigravida 730508661 Z 34.83 Gestationa l diabetes mellitus 90898608 O24.419 The patient brings her blood sugar log with her. Her postprandi als are nearly all at goal. Her fastings are high 90s. She states that she has only been able to take one of the metformin. We discussed trying to take 2 at a different time of day and waiting another week or so for side effects to settle down. So far been happy with her blood sugars. She needs to continue 4 times daily blood sugar checks. 12/17/2024 brings her log today. postprandi als are great. fastings are 80-90's. she is still only able to take 1 metformin daily. continues to lose weight due to following her diabetic diet. 01/13/25 pt forgot her BS log but reports they are 'good'. she was advised to bring her log to her next visit and she was provided with one. had growth u/s today, results pending. 02/17/25 EFW 76%tile. will need another for growth and in 2 weeks. start twice weekly NST next week. 03/04/25 had growth u/s today - results pending. getting twice weekly NST. Patient brings her sugar log with her which looks extremely good. 03/18/25 Acute urin tequila tract infection 006362855 N39.0 [id number] Renetta Mederos MD [facility] ([facility]) [address] [place] [address] [id number] 5 03/18/2025 10:58:43 03/19/2025 10:27:49 [id number] Renetta Mederos MD [facility] ([facility]) [address] [place] [address] [id number] 5 03/25/2025 10:52:08 03/30/2025 12:18:23 Gestation period, 36 weeks 43775137 Z3A.36 GDM (vs DM2) Multigravida 463885431 Z 34.83 Gestationa l diabetes mellitus 73123138 O24.419 sugars good- she has some>95 fasting and 2 at 140 postprandi als. cont same. scheduled on the . 03/25/25 [id number] Renetta Mederos MD [facility] ([facility]) [address] [place] [address] [id number] 5 04/06/2025 11:03:42 04/06/2025 14:38:27 Gestation period, 38 weeks 49831897 Z3A.38 Multigravida 911543757 Z 34.83 Gestationa l diabetes mellitus 72390236 O24.419 sugars good- she has some>95 fasting and 2 at 140 postprandi als. cont same. scheduled on the . 03/25/25 Past pregn maegan history of section 597378581 Z98.890 discussed repeat . scheduled for April 13 at 7 am. reviewed pre-op instructio ns. 04/06/25 Otalgia of right ear 103 0813196 H92.01 Health Concerns Section Related Observation LastModified by Organization Detai ls LastModified Time None Recorded Concern Status LastModified by Organization Details LastModified Time None Recorded Advance Directives Directive None Recorded Payers Encounter Date Sequence Insurance Name Policy Number Policy Almaraz Covered Member ID Almaraz Member ID Guarantor Name 03/04/2025 1 [employer] - [place]MO[place] PATTI Mckinley [id number] Talia Mckinley 03/18/2025 1 [employer] - [place]MO[place] PATTI Mckinley [id number] Talia Mckinley 03/18/2025 1 [employer] - [place]MO[place] PATTI Mckinley [id number] Talia Mckinley 03/25/2025 1 [employer] - [place]MO[place] PATTI Mckinley [id number] Talia Mckinley 04/06/2025 1 [employer] - [place] PATTI Mckinley [id number] Talia Mckinley Notes Date Note Type Note Provider Name and Address Organization Details Recorded Time 03/04/2025 text/html jr ob routineRep orted bypatient.Associated Symptoms:no abdominal pain; no contractions; normal movement; no bleeding; no dysuria; no emesis; no constipation; no edema; no dizziness;cramping;na usea;headache Renetta Mederos MD [address] [place] [address], [phone], [facility] 03/16/2025 15:34:49 03/18/2025 text/html ob routineRep orted bypatient.Associated Symptoms:no cramping; no contractions; normal movement; no bleeding; no dysuria; no nausea; no emesis; no constipation; no edema; no dizziness;abdominal pain;headache Renetta Mederos MD [address] [place] [address], [phone], [facility], [facility] 03/20/2025 03:56:07 03/25/2025 text/html ob routineRep orted bypatient.Associated Symptoms:no abdominal pain; no cramping; normal movement; no bleeding; no dysuria; no nausea; no emesis; no constipation; no dizziness;contraction s;edema;headache Renetta Mederos MD [address] [place] [address], [phone], [facility] 03/25/2025 11:45:06 04/06/2025 text/html ob routineRep orted bypatient.Associated Symptoms:no abdominal pain; no contractions; normal movement; no bleeding; no dysuria; no emesis; no constipation; no headache; no dizziness;cramping;na usea;edema Renetta Mederos MD [address] [place] [address], [phone], [facility], L[facility] 04/06/2025 12:09:49 OBGyn Episode Ob Episode Information Episode Created Date Number of Fetuses Patient Bloodtype Patient rh Status Prepregnancy Weight lbs Domestic Partner Domestic Partner Phone 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 Status 11/26/19 25 1 A Positive OPEN Fetus Data First Name Last Name Admitted to NICU Weight (g) Sex Living Outcome Pediatric Complications Fetus ID Race Codes Race Delivery Type [id number] Problems Problem Notes Problem Name Start Date End Date Resolution Snomed Code Not e Gestational diabetes mellitus 35480129 Morbid obesity 01/13/2025 160625152 Past history of ce sarean section 01/13/2025 616970990 Mike Calculation Initial Mike Date Initial Exam Date Initial Exam Provider Initial Ultrasound Date Last Menstrual Period Date Ultra Sound Weeks Gestation 04/20/2025 11/26/2024 09/03/2024 07/14/2024 7 Eighteen To Twenty Week Mike Update Ultra Sound Date Fundal Height At Umbil Quickening Date Ultra Sound Latest Weeks Gestation Final Mike Confirmed By Final Mike Confirmed Date Final Mike Date Ultra Sound Latest Days Gestation 0 [email or web address] 01/13/2025 04/20/20 25 0 Pre-reva Flowsheet Flowsheet Date 11/26/2024 Mai Score Blood Edema Fundus Height Fundus Units Glucose Ketones Leukocytes Nitrite Labor Signs Protein Cervic Dilation Cervic Effacement Cervic Station 24 cm Type Weight in lbs Pre/Post Dialysis Refused With clothes 292.176123805482 BP Diastolic BP Location Tested BP Systolic BP Type 70 L arm 118 sitting Fetus Heart Rate Present A 155 Fetus Movement Comments Flowsheet Date 12/10/2024 Mai Score Blood Edema Fundus Height Fundus Units Glucose Ketones Leukocytes Nitrite Labor Signs Protein Cervic Dilation Cervic Effacement Cervic Station Type Weight in lbs Pre/Post Dialysis Refused BP Diastolic BP Location Tested BP Systolic BP Type Fetus Heart Rate Present Fetus Movement Comments Flowsheet Date 12/17/2024 Mai Score Blood Edema Fundus Height Fundus Units Glucose Ketones Leukocytes Nitrite Labor Signs Protein Cervic Dilation Cervic Effacement Cervic Station 30 cm none trace Negative neg Type Weight in lbs Pre/Post Dialysis Refused With clothes 286.921365580541 BP Diastolic BP Location Tested BP Systolic BP Type 74 L arm 130 sitting Fetus Heart Rate Present A 150 Fetus Movement Comments Diabetes Mellitus - GDM v Ty pe 2. on metformin, wants tubal, wants circ. Flowsheet Date 01/13/2025 Mai Score Blood Edema Fundus Height Fundus Units Glucose Ketones Leukocytes Nitrite Labor Signs Protein Cervic Dilation Cervic Effacement Cervic Station Type Weight in lbs Pre/Post Dialysis Refused BP Diastolic BP Location Tested BP Systolic BP Type Fetus Heart Rate Present Fetus Movement Comments Flowsheet Date 01/13/2025 Mai Score Blood Edema Fundus Height Fundus Units Glucose Ketones Leukocytes Nitrite Labor Signs Protein Cervic Dilation Cervic Effacement Cervic Station 28 cm none 2+ trace Type Weight in lbs Pre/Post Dialysis Refused Weight 279.670393411754 BP Diastolic BP Location Tested BP Systolic BP Type 60 115 Fetus Heart Rate Present A 145 Fetus Movement A Yes Comments kick counts reviewed. Pt. is having some calf pain and cramping, rt. hip pain. Baby boy, wants circumsision. Petarying Quezada. Flowsheet Date 02/17/2025 Mai Score Blood Edema Fundus Height Fundus Units Glucose Ketones Leukocytes Nitrite Labor Signs Protein Cervic Dilation Cervic Effacement Cervic Station Type Weight in lbs Pre/Post Dialysis Refused BP Diastolic BP Location Tested BP Systolic BP Type Fetus Heart Rate Present Fetus Movement Comments Flowsheet Date 02/17/2025 Mai Score Blood Edema Fundus Height Fundus Units Glucose Ketones Leukocytes Nitrite Labor Signs Protein Cervic Dilation Cervic Effacement Cervic Station none trace Negative trace Type Weight in lbs Pre/Post Dialysis Refused With clothes 276.477293968364 BP Diastolic BP Location Tested BP Systolic BP Type 70 L arm 120 sitting Fetus Heart Rate Present Fetus Movement Comments forgot BS log Flowsheet Date 03/04/2025 Mai Score Blood Edema Fundus Height Fundus Units Glucose Ketones Leukocytes Nitrite Labor Signs Protein Cervic Dilation Cervic Effacement Cervic Station 35 cm none 2+ 1+ Type Weight in lbs Pre/Post Dialysis Refused Weight 276.605149609128 BP Diastolic BP Location Tested BP Systolic BP Type 65 122 Fetus Heart Rate Present A 140 Fetus Movement A Yes Comments twice weekly NST starting at 34 wks Flowsheet Date 03/18/2025 Mai Score Blood Edema Fundus Height Fundus Units Glucose Ketones Leukocytes Nitrite Labor Signs Protein Cervic Dilation Cervic Effacement Cervic Station Type Weight in lbs Pre/Post Dialysis Refused BP Diastolic BP Location Tested BP Systolic BP Type Fetus Heart Rate Present Fetus Movement Comments Flowsheet Date 03/18/2025 Mai Score Blood Edema Fundus Height Fundus Units Glucose Ketones Leukocytes Nitrite Labor Signs Protein Cervic Dilation Cervic Effacement Cervic Station 38 cm none 2+ Negative trace Type Weight in lbs Pre/Post Dialysis Refused Weight 279.987997744169 BP Diastolic BP Location Tested BP Systolic BP Type 78 100 Fetus Heart Rate Present A 140 Fetus Movement A Yes Comments TDAP RX given today. Repeat section no GBS. Flowsheet Date 03/25/2025 Mai Score Blood Edema Fundus Height Fundus Units Glucose Ketones Leukocytes Nitrite Labor Signs Protein Cervic Dilation Cervic Effacement Cervic Station 39 cm none 2+ 1+ Type Weight in lbs Pre/Post Dialysis Refused Weight 278.18141329078 BP Diastolic BP Location Tested BP Systolic BP Type 70 130 Fetus Heart Rate Present A 135 Fetus Movement A Yes Comments sugars are good. Flowsheet Date 04/06/2025 Mai Score Blood Edema Fundus Height Fundus Units Glucose Ketones Leukocytes Nitrite Labor Signs Protein Cervic Dilation Cervic Effacement Cervic Station 1+ 41 cm none 2+ trace Type Weight in lbs Pre/Post Dialysis Refused Weight 282.548253120697 BP Diastolic BP Location Tested BP Systolic BP Type 75 120 Fetus Heart Rate Present A 130 Fetus Movement A Yes Comments tubal and repeat csection ne xt week. Menstrual History Last Menstrual Date Menses Monthly On Bcp Conception Prior Menses Frequency Hcg Plus Date Menarche Onset Age 0907/14/2024 Genetic Screening And Infection History Question Response Note Patient's Age Will Be 35 Yea rs Or Older At Estimated Date of Delivery false Thalassemia (Greek, Italian, Mediterranean, Or Background): MCV < 80 false Neural Tube Defect (Meningom yelocele, Spina Bifida, Or Anencephaly) false Congenital Heart Defect false Down Syndrome false Tyson-Sachs (eg, Bahai, Cajun, Romansh-[place]a) f alse Phoebe Disease false Sickle Cell Disease Or Trait () false Hemophilia Or Other Blood Disorders false Muscular Dystrophy false Cystic Fibrosis false Hamblen's Chorea false Intellectual Disability/Autism false If Yes, Was Person Tested For Fragile X? false Other Inherited Genetic Or Chromosomal Disorder false Maternal Metabolic Disorder (eg, Type 1 Diabetes , PKU) false Patient Or Baby's Father Had A Child With Defects Not Listed Above false Recurrent Loss, Or A Stillbirth false Medications (including Suppl ements, Vitamins, Herbs, OTC Drugs), Illicit/Recreational Drugs, Alcohol true , zyrtec If Yes, Agent(s) And Strength/Dosage false Any Other Genetic History false Live With Someone With TB Or Exposed To TB false Patient Or Partner Has History Of Genital Herpes false Rash Or Viral Illness Since Last Menstrual Perio d false History Of STD, Gonorrhea, Chlamydia, HPV, Syphi lis false Other Infection History false History of HIV false History of Hepatitis false Prior GBS-infected child false Hemoglobinopathy Or Carrier false Other Structural Defect false Recent Travel History Outside of Country false Mental Retardation/Autism false Delivery Information Delivery Date Delivery Type Labor Anesthesia Weeks Gestation Incision Type Labor Labor Length Hrs Delivered By Post Complications Tubal Sterilization Discharge Date Comments Discharge Information Feeding Method Contraceptive Method Maternal HG B and HCT Levels Ob Episode Information Episode Created Date Number of Fetuses Patient Bloodtype Patient rh Status Prepregnancy Weight lbs Domestic Partner Domestic Partner Phone 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 Status 11/26/19 25 1 CLOSED Fetus Data First Name Last Name Admitted to NICU Weight (g) Sex Living Outcome Pediatric Complications Fetus ID Race Codes Race Delivery Type 3175.14 4 F [id number] Mike Calculation Initial Mike Date Initial Exam Date Initial Exam Provider Initial Ultrasound Date Last Menstrual Period Date Ultra Sound Weeks Gestation 0 Eighteen To Twenty Week Mike Update Ultra Sound Date Fundal Height At Umbil Quickening Date Ultra Sound Latest Weeks Gestation Final Mike Confirmed By Final Mike Confirmed Date Final Mike Date Ultra Sound Latest Days Gestation 0 0 Menstrual History Last Menstrual Date Menses Monthly On Bcp Conception Prior Menses Frequency Hcg Plus Date Menarche Onset Age Delivery Information Delivery Date Delivery Type Labor Anesthesia Weeks Gestation Incision Type Labor Labor Length Hrs Delivered By Post Complications Tubal Sterilization Discharge Date Comments 1 Regional-Ep idural c/s due to getting stuck Dr.Menend ortiz Discharge Information Feeding Method Contraceptive Method Maternal HG B and HCT Levels
--- OUTSIDE RECORDS SUMMARY | 2025-04-13 05:00 | XMS_ITS | Continuity of Care Document ---
Author Organization [facility] [place]) Address [address] [place] [address] Assessment No assessment recorded. Plan of Treatment Reminders Order Date Submit Date Provider Last Modified By Organization Details Last Modified Time Details Appointments None record ed. Lab None record ed. Referral None record ed. Procedures None record ed. Surgeries None record ed. Imaging None record ed. Medication Orders neomyc in-graeme ymyxin -hydro geni 3.5 mg-10, 000 unit/m L-1 % ear drops, susp 025 04/06/20 [facility], [address], [place], [address], 14:42:46 Patient TargetsNo targets recorded. Patient InstructionsNo instructions recorded. Reason for Referral None Reported. Results Created Date Observation Date Name Description Value Unit Range Abnormal Flag Note LastModifiedBy Organization Detail LastModifiedTime 12/11/19 25 12/10/2024 US, obste tric, mater nal evalu ation + anato my No observ ation record ed. [email or web address] [facility] [address] [place], [address], 12/15/2024 14:28:06 01/16/20 25 01/13/2025 US, obste tric, follo w-up No observ ation record ed. [email or web address] [facility] [address] [place], [address], 01/19/2025 12:07:47 02/19/20 25 02/17/2025 US, obste tric, follo w-up No observ ation record ed. Not Available 02/19 10:46:57 03/23/20 25 03/18/2025 US, obste tric, follo w-up No observ ation record ed. [email or web address] Not Available 03/24 08:59:13 04/01/20 25 04/01/2025 US, obste tric No observ ation record ed. [place] [address] [place], [address], 04/12/2025 10:15:39 Result Notes None recorded. Problems Name Problem SNOMED Code Status Onset Date Resolution Date Notes Provider Name and Address Organization Details Recorded Time 35035994 [facility]24 Gestational diabetes mellitus 56881608 Active [facility] 5 15:00:16 Gestational diabetes mellitus 79318985 Active [facility] 5 15:00:16 Past history of section 858390639 Active 2024 [facility] 5 15:00:21 Past history of section 063197200 Active 2024 [facility] 5 15:00:21 Morbid obesity 299535445 Active 2024 [facility] 5 15:00:18 Morbid obesity 058275015 Active 2024 [facility] 5 15:00:18 Problem Notes None recorded. Procedures Surgical History Date Name Laterality Status Provider Name and Address Organization Details Recorded Time procedure on ankle completed [facility] 11/26/2024 14:43:13 [facility] 11/26/2024 14:43:19 Imaging Results None recorded. Procedure Notes None recorded. Medical Equipment None Reported. Allergies Allergen ID Allergen Name Allergen Category Reaction Reaction Severity Criticality Documentation Date Start Date Code Code System Note Provider Name and Address Organization Details Recorded Time 10630 Augmentin medicatio n Not available Not available Not available 11/26/2024 08767 2 RxNorm [facility], L[facility]hilash 14:38:09 77727 Substance with sulfonami de structure and antibacte rial mechanism of action (substanc e) medicatio n Not available Not available Not available 11/26/2024 26500 8003 SNOMED [facility] 14:38:16 Medications Name Sig Start Date Stop [...] Last Updated DateTime 170.18 cm 44.2 kg/m2 596676. 05 g 98.2 [degF] 99 % 99 % 78 /min 120 mm[Hg] 75 mm[Hg] JOEY HOWE [facility] 11:32:35 Social History Question Answer Notes LastModified by Ziliko Details LastModified Time Tobacco Smoking Status Current Every Day Smoker THONG dowling [facility] 11/26/2024 14:42:33 What Was The Date Of Your Most Recent Tobacco Screening? 04/06/2025 [email or web address] Information not available 04/06/2025 How Much Tobacco Do You Smoke? 0.5 PPD [email or web address] Information not available 11/26/2024 Sex: Unknown Functional Status Question Answer Note LastModified by Organizat Conjunct Details LastModified Time Do you use any illicit or recreational drugs? No Information not available 11/26/2024 What is your level of alcohol consumption? None [email or web address] Information not available 11/26/2024 Mental Status None recorded. Family History Relationship Description Onset Age of this Age Resolved Age Notes LastModified by Organization Details LastModified Time Father No current problems or disability [email or web address] Not available 10/2025 16:05:52 Mother No current problems or disability [email or web address] Not available 10/2025 16:05:52 Medical History Condition Response Coronary Artery Disease N Other N Gout N Kidney Stones N Blood Diseases N Hyperthyroidism N Breast Cancer N Blood Transfusion N Depression N Hypothyroidism N Lung Disease N COPD N Defects or Inherited Disease N Developmental or Behavioral Disorders N Breast Problem N Difficulty Swallowing N Anesthesia Complications N Meniere's disease N Anxiety Disorder N Muscle, Joint, or Bone Problems N Vision or Eye Problems N Arthritis N Polyps N Infertility N Cancer N Varicosities N Stroke N Endometriosis N Bladder or Kidney Problems [...] B, unspecified formulation 2 completed Not [facility] 11:04:01 OPV 3 completed Not Available [facility] 04/06/2025 11:04:01 Hib (HbOC) 3 completed Not Available [facility] 04/06/2025 11:04:01 DTP 3 completed Not Available [facility] 04/06/2025 11:04:01 Hep B, unspecified formulation 3 completed Not Available [facility] 04/06/2025 11:04:01 DTP 3 completed Not Available [facility] 04/06/2025 11:04:01 Hep B, unspecified formulation 3 completed Not Available [facility] 04/06/2025 11:04:01 Hib (HbOC) 3 completed Not [...] SNOMED-CT Code Diagnosis ICD10 Code Diagnosis Note [id number] Renetta Mederos MD [facility] ([facility]) [address] [place] [phone] 03/18/2025 11:30:42 03/19/2025 10:23:06 Gestation period, 35 weeks 41719142 Z3A.35 Multigravida 596466046 Z 34.83 Gestationa l diabetes mellitus 29187365 O24.419 The patient brings her blood sugar [...] good. 03/18/25 Acute urin tequila tract infection 572180297 N39.0 [id number] Renetta Mederos MD [facility] ([facility]) [address] [place] [address] [phone] 03/18/2025 10:58:43 03/19/2025 10:27:49 [id number] Renetta Mederos MD [facility] ([facility]) [address] [place] [address] [phone] 03/25/2025 10:52:08 03/30/2025 12:18:23 Gestation period, 36 weeks 67945359 Z3A.36 GDM (vs DM2) Multigravida 603959101 Z 34.83 Gestationa l diabetes mellitus 45279330 O24.419 sugars good- she has some>95 fasting and 2 at 140 postprandi als. cont same. scheduled on the 10th. 03/25/25 [id number] Renetta Mederos MD [facility] ([facility]) [address] [place] [address] [phone] 04/06/2025 11:03:42 04/06/2025 14:38:27 Gestation period, 38 weeks 27655702 Z3A.38 Multigravida 721331058 Z 34.83 Gestationa l diabetes mellitus 10801257 O24.419 sugars good- she has some>95 fasting and 2 at 140 postprandi als. cont same. scheduled on the . 03/25/25 Past pregn maegan history of section 831786422 Z98.890 discussed repeat . scheduled for April 13 at 7 am. reviewed pre-op herman awad. 04/06/25 Otalgia of right ear 225 4325629 H92.01 Health Concerns Section Related Observation LastModified by Organization Detai ls LastModified Time None Recorded Concern Status LastModified by Organization Details LastModified Time None Recorded Payers Encounter Date Sequence Insurance Name Policy Number Policy Almaraz Covered Member ID Almaraz Member ID Guarantor Name 04/06/2025 1 [facility] (MEDICAID REPLACEMENT - HMO) PATTI Mckinley [id number] Talia Mckinley Notes Date Note Type Note Provider Name and Address Organization Details Recorded Time 04/06/2025 text/html jr ob routineRep orted bypatient.Associated Symptoms:no abdominal pain; no contractions; normal movement; no bleeding; no dysuria; no emesis; no constipation; no headache; no dizziness;cramping;na usea;edema Renetta Mederos MD [address] [place] [address], [phone] 04/06/2025 12:09:49 OBGyn Episode Ob Episode Information Episode Created Date Number of Fetuses Patient Bloodtype Patient rh Status Prepregnancy Weight lbs Domestic Partner Domestic Partner Phone Father Name 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 Crew Pusher Status 11/26/19 25 1 A Positive OPEN Fetus Data First Name Last Name Admitted to NICU Weight (g) Sex Living Outcome Pediatric Complications Fetus ID Race Codes Race Delivery Type [id number] Problems Problem Notes Problem Name Start Date End Date Resolution Snomed Code Not e Gestational diabetes mellitus 45874394 Morbid obesity 01/13/2025 016069543 Past history of ce sarean section 01/13/2025 927565457 Mike Calculation Initial Mike Date Initial Exam [...] in lbs Pre/Post Dialysis Refused With clothes 292.623692218066 BP Diastolic BP Location Tested BP Systolic [...] in lbs Pre/Post Dialysis Refused With clothes 286.580972173942 BP Diastolic BP Location Tested BP Systolic [...] Weight in lbs Pre/Post Dialysis Refused Weight 279.792376333943 BP Diastolic BP Location Tested BP Systolic BP Type 60 115 Fetus Heart Rate Present A 145 Fetus Movement A Yes Comments kick counts reviewed. Pt. is having some calf pain and cramping, rt. hip pain. Baby boy, wants circumsision. Petar Quezada. Flowsheet Date 02/17/2025 Mai Score Blood [...] in lbs Pre/Post Dialysis Refused With clothes 276.269660907839 BP Diastolic BP Location Tested BP Systolic BP Type 70 L arm 120 sitting Fetus Heart Rate Present Fetus Movement Comments forgot BS log Flowsheet Date 03/04/2025 Mai Score Blood Edema Fundus Height Fundus Units Glucose Ketones Leukocytes Nitrite Labor Signs Protein Cervic Dilation Cervic Effacement Cervic Station 35 cm none 2+ 1+ Type Weight in lbs Pre/Post Dialysis Refused Weight 276.420670479984 BP Diastolic BP Location Tested BP Systolic [...] Weight in lbs Pre/Post Dialysis Refused Weight 279.654648444432 BP Diastolic BP Location Tested BP Systolic [...] Weight in lbs Pre/Post Dialysis Refused Weight 278.98037995332 BP Diastolic BP Location Tested BP Systolic BP Type 70 130 Fetus Heart Rate Present A 135 Fetus Movement A Yes Comments sugars are good. Flowsheet Date 04/06/2025 Mai Score Blood Edema Fundus Height Fundus Units Glucose Ketones Leukocytes Nitrite Labor Signs Protein Cervic Dilation Cervic Effacement Cervic Station 1+ 41 cm none 2+ trace Type Weight in lbs Pre/Post Dialysis Refused Weight 282.675576933108 BP Diastolic BP Location Tested BP Systolic [...] At Estimated Date of Delivery false Thalassemia (Irish, Swedish, Mediterranean, Or Background): MCV < 80 false Neural Tube Defect (Meningom yelocele, Spina Bifida, Or Anencephaly) false Congenital Heart Defect false Down Syndrome false Tyson-Sachs (eg, Lutheran, Cajun, Guinean-Omani) f alse Phoebe Disease false Sickle Cell Disease Or Trait () false Hemophilia Or Other Blood Disorders false Muscular Dystrophy false Cystic Fibrosis false Jackson's Chorea false Intellectual Disability/Autism false If Yes, [...]
[2025-04-13] MEDS: sodium chloride 0.9% 1,000 ML 999 ML IV (06:02)
[2025-04-13 06:16] LABS: Basophils % 0.2 %; Eosinophils # 0.1 10^3/uL (0.0-0.8); Hematocrit 39.3 % (36-47); Lymphocytes # 2.5 10^3/uL (0.8-4.8); Lymphocytes % 20.8 %; Mean Corpuscular HGB Conc 33.3 g/dL (30-55); Mean Corpuscular Hemoglobin 28.5 pg (27-33); Mean Corpuscular Volume 85.6 fl (85-98); Mean Platelet Volume 11.6 fL (7.4-10.4); Monocytes # 0.8 10^3/uL (0.2-0.9); Monocytes % 6.6 %; Neutrophils # 8.52 10^3/uL (1.8-7.7); Neutrophils % 70.8 %; Nucleated Red Blood Cells % 0 %; Platelet Count 189 10^3/cmm (157-399); Red Blood Count 4.59 10^6/uL (3.85-5.65); Red Cell Distribution Width 13.2 % (12.1-15.1); White Blood Count 12.03 10^3/uL (3.29-11.43)
[2025-04-13] MEDS: famotidine 20 mg/2 mL INJ IVP (06:59)
[2025-04-13] MEDS: metoclopramide 5 mg/mL SDV 2 mL 10 MG IVP (06:59)
[2025-04-13] MEDS: citric acid-sodium citrate 30 mL UDC PO (06:59)
--- NOTE | 2025-04-13 07:04 | ANES.PREANE2 ---
Pre-Anesthetic Assessment Height/Weight: Height 1.7 m Weight 128.82 kg O2 Del Method Room Air 04/13/25 05:00 Operation Date: 04/13/25 07:20 Proposed Procedures p Section Repeat(Not Applicable) - Renetta Mederos MD Last intake: Intake Last Liquid Date 04/13/25 Last Liquid Time 23:55 Last Solid Date 04/13/25 Last Solid Time 22:30 Social Tobacco Exam alert, oriented x 3, clear to auscultation bilaterally and regular rate & rhythm Airway Submandibular: within normal limits Cervical ROM: within normal limits Mallampati: Class II Dentition: other (missing upper teeth, has bottom teeth) History/ROS No significant history except as noted Pulmonary Asthma (uses albuterol inhaler prn) CV/HEM Arrythmia ( I have a heart block refer to cardiology note.) None reported Hepatic None reported GI Gastroesophageal Reflux Disease Metabolic Diabetes Mellitus (diet controlled, DM2) and Morbid Obesity Musc/skel Lower Back Pain and Osteoarthritis/DJD Neuropsych Anxiety and Headache Anesthetic Plan ASA status: 3 Anesthesia: General and Regional (specify below) Risk of > 500 ml blood loss (7ml/kg in children): Yes, adequate IV access and fluids planned Medications/Allergies Home Medications ?Medication ?Instructions ?Recorded ?Confirmed ?Last Taken ?Type cetirizine 10 mg capsule (Zyrtec) 10 mg PO DAILY PRN allergy 02/27/24 04/13/25 04/04/25 08:00 Rx symptoms #30 caps albuterol sulfate 90 mcg/actuation 2 puff inhalation QID PRN 07/17/24 04/13/25 Unknown Rx aerosol inhaler shortness of breath or wheezing #6.7 grams blood sugar diagnostic (Blood #100 ea 08/26/24 04/13/25 Unknown Rx Glucose Test strips) blood-glucose meter #1 ea 08/26/24 04/13/25 Unknown Rx lancets 31 gauge #100 ea 08/26/24 04/13/25 Unknown Rx blood-glucose transmitter (Dexcom #1 ea 11/10/24 04/13/25 Unknown Rx G6 Transmitter device) Allergies Allergy/AdvReac Type Severity Reaction Status Date / Time cefdinir Allergy ALGY-Rash Verified 12/15/24 10:29 clavulanic acid (From Allergy extremely Verified 12/15/24 10:29 Augmentin) itchy shellfish derived Allergy unknown/diagnosed Verified 12/15/24 10:29 when younger Sulfa (Sulfonamide Allergy hives Verified 12/15/24 10:29 Antibiotics) [facility] Anesthesia Medical History Centromere antibody positive Abnormal antibody titer Inflammatory arthritis Positive antinuclear antibody History of ovarian cyst Type 2 diabetes mellitus 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 Surgical History Hx of cholecystectomy 2013 H/O left wrist surgery 2 different surgeries, 2009 & 2010 History of foot surgery right foot, 2015 Family History Mother Diabetes Ovarian cyst Grandfather Diabetes maternal Hypertension maternal Stroke maternal Grandmother Diabetes maternal Denies family history of CAD (coronary artery disease) Clotting disorder Hyperlipidemia Chronic kidney disease (CKD) Anesthesia complication Bleeding disorder Cancer Social History Smoking and tobacco/nicotine status: former use of tobacco/nicotine Alcohol intake: never Substance/Drug Use: never Female Reproductive History Date of last menstrual period: 07/05/24 Para: 1 Data Anesthesia 04/13/25 06:00 Short CBC 04/13/25 Range/Units 06:00 WBC 12.03 H (3.29-11.43) 10^3/uL Hgb 13.10 (11.27-16.99) g/dL Hct 39.3 (36-47) % MCV 85.6 (85-98) fl Plt Count 189 (157-399) 10^3/cmm Neut % (Auto) 70.8 % Neut # (Auto) 8.52 H (1.8-7.7) 10^3/uL Blood Bank 04/13/25 06:00 Blood Type A Positive Rho(D) Type Rh positive Cardiac Studies: Echocardiogram 11/24/21 Cardiac Event Monitor 11/13/22
--- NOTE | 2025-04-13 07:05 | PM.HP ---
Providers/Chief Complaint Admitting Physician: Renetta Mederos MD Primary Care Provider: MU Mcgovern Chief Complaint: C Section History of Present Illness Talia Mckinley is a 34 year old female G2, P1 at 39 weeks 0 days gestation with an LUPE of 04/20/2025 who is here for a scheduled repeat section. The patient's has been complicated by chronic diabetes mellitus. Her blood sugars have been well-controlled on metformin. She has been receiving monthly growth and LISSA ultrasounds. She has been getting twice weekly NSTs. testing has been reassuring. Patient has previously expressed desire multiple times to undergo bilateral tubal ligation. We will proceed with both section and bilateral tubal ligation this morning. Review of Systems Narrative: She is feeling well although a little bit nervous, she is feeling good movement. She has had no bleeding, no loss of fluid, no contractions. Medications/Allergies Home Medications ?Medication ?Instructions ?Recorded ?Confirmed ?Last Taken ?Type cetirizine 10 mg capsule (Zyrtec) 10 mg PO DAILY PRN allergy 02/27/24 04/13/25 04/04/25 08:00 Rx symptoms #30 caps albuterol sulfate 90 mcg/actuation 2 puff inhalation QID PRN 07/17/24 04/13/25 Unknown Rx aerosol inhaler shortness of breath or wheezing #6.7 grams blood sugar diagnostic (Blood #100 ea 08/26/24 04/13/25 Unknown Rx Glucose Test strips) blood-glucose meter #1 ea 08/26/24 04/13/25 Unknown Rx lancets 31 gauge #100 ea 08/26/24 04/13/25 Unknown Rx blood-glucose transmitter (Dexcom #1 ea 11/10/24 04/13/25 Unknown Rx G6 Transmitter device) Allergies Allergy/AdvReac Type Severity Reaction Status Date / Time cefdinir Allergy ALGY-Rash Verified 12/15/24 10:29 clavulanic acid (From Allergy extremely Verified 12/15/24 10:29 Augmentin) itchy shellfish derived Allergy unknown/diagnosed Verified 12/15/24 10:29 when younger Sulfa (Sulfonamide Allergy hives Verified 12/15/24 10:29 Antibiotics) PFSH Acute PFSH: Medical History (Updated 04/13/25 @ 07:12 by Renetta Mederos MD) Centromere antibody positive Abnormal antibody titer Inflammatory arthritis Positive antinuclear antibody History of ovarian cyst Type 2 diabetes mellitus 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 Surgical History (Updated 04/13/25 @ 07:07 by Renetta Mederos MD) History of section complicating Hx of cholecystectomy 2013 H/O left wrist surgery 2 different surgeries, 2009 & 2010 History of foot surgery right foot, 2015 Family History Mother Diabetes Ovarian cyst Grandfather Diabetes maternal Hypertension maternal Stroke maternal Grandmother Diabetes maternal Denies family history of CAD (coronary artery disease) Clotting disorder Hyperlipidemia Chronic kidney disease (CKD) Anesthesia complication Bleeding disorder Cancer Social History Smoking and tobacco/nicotine status: former use of tobacco/nicotine Alcohol intake: never Substance/Drug Use: never Female Reproductive History: Date of last menstrual period: 07/05/24 : 2 Para: 1 Vitals/I&O/Wt Last Vital Signs O2 Del Method Room Air 04/13/25 05:00 Weight last 48 hrs Weight 128.82 kg Physical Exam Narrative: Alert and oriented, sitting on the edge of the bed, heart regular rate and rhythm, lungs clear to auscultation bilaterally, abdomen is gravid and nontender, extremities have 1+ edema but no calf tenderness Data 04/13/25 06:00 A&P Assessment and plan (1) History of section complicating : Repeat section with tubal ligation (2) Type 2 diabetes mellitus: We will likely keep her on the metformin . (3) Encounter for consultation for female sterilization: Multiple times patient has verified that she wishes to undergo bilateral tubal ligation with permanent sterilization. PDMP PDMP Reviewed: Not Reviewed Attestations Medical Necessity Statement*: Routine surgery and and postoperative care Coding Level of Care Code Acute Code for Chg Fwd Diagnoses History of section complicating O34.219 Type 2 diabetes mellitus without complication, without long-term current use of insulin E11.9 Diabetes mellitus [facility] insulin use: without [facility] use Diabetes mellitus complication status: without complication Encounter for consultation for female sterilization Z30.09
--- NOTE | 2025-04-13 08:00 | PC.NURSE ---
pt in OR
--- NOTE | 2025-04-13 08:40 | PM.OP ---
Operative Report Date of procedure: April 13, 2025 Pre-op diagnosis: Repeat section Desired permanent surgical sterilization Type 2 diabetes mellitus Post-op diagnosis: Repeat section Desired permanent surgical sterilization Left ovarian cyst Type 2 diabetes mellitus Procedure done: Low-transverse section Via Pfannenstiel skin incision Bilateral tubal ligation Specimens removed/disposition: Vertex male weight 3700 g, 8 pounds 3 ounces, Apgars 8 and 9 Pathology: Segments of right and left fallopian tubes Surgeon: Renetta Mederos MD Estimated blood loss (mL): 500 IV fluids (mL): 1,400 Urine output (mL): 60 Complications: None Procedure: After informed consent the patient was taken to the OR where spinal anesthesia was administered. She was prepped and draped in normal sterile fashion in dorsal supine position with a left lateral tilt. A Pfannenstiel skin incision was made and carried through to the underlying layer of fascia sharply. The fascial incision was then extended laterally using the Mayos. The fascia was grasped with Migdalia clamps and the underlying rectus muscles were dissected off. There was some scarring of the peritoneum to the fascia. The peritoneum was then entered bluntly and the incision site was manually stretched. The bladder blade was inserted and the vesicouterine peritoneum was identified and entered sharply using the Metzenbaums. The bladder flap was created digitally and then the bladder blade was reinserted. Uterine incision was made in a transverse fashion in the lower uterine segment. The amniotic membrane was ruptured using an Allis clamp and clear fluid was noted. The 's head and a was delivered atraumatically with the rest of the following immediately. The infant was suctioned at delivery with spontaneous cry. The cord was clamped and cut and the was handed to the waiting pediatric nurse. Cord blood was obtained. The placenta was delivered grossly intact. The uterus was then exteriorized from the abdomen and a dry sponge was used to clear the uterus of clots and debris. The uterine incision was repaired using 0 chromic in a running locked fashion. A second layer of the same suture was used in an imbricating manner. Good hemostasis was obtained. The left fallopian tube was then grasped with a [place]. A proximal portion of the tube was ligated and excised. Segment of the tube was sent to pathology. Tubal ostia were visualized. The cut portions of the tube were coagulated using the Bovie. The right fallopian tube was then grasped with a Cr and a midportion of the tube was ligated and excised. Portion of the tube was sent to pathology. Tubal ostia were visualized. The cut portions of the tube were coagulated using the Bovie. The uterus was then gently returned to the abdomen. Irrigation was used to clear the gutters of clots and debris and the uterine incision was inspected for hemostasis. During irrigation the left ovary popped into the operative field and was found to be very enlarged approximately the size of a ping-pong ball. It was smooth and round with fimbria and surrounding vessels attached to the ovary. Decision was made not to intervene or drain the cyst. It was returned to the abdomen. There was a small amount of oozing from the vesicouterine peritoneum but it was deemed minimal. The peritoneum was reapproximated using 4-0 Vicryl in a running fashion. The subfascial tissue was inspected for hemostasis. There was a small amount of serosanguineous fluid coming from underneath the peritoneum. a single stitch of 4-0 Vicryl made to close the small gap in the peritoneum. The subfascial tissue was again inspected for hemostasis. The fascia was then reapproximated using 0 Vicryl in a running fashion. Subcutaneous tissue was irrigated and any small bleeders were coagulated using the Bovie. The subcutaneous tissue was then reapproximated using 4-0 Vicryl in a running fashion. The skin was then reapproximated using 4-0 Vicryl in a running fashion on a Maico needle. Steri-Strips and a pressure bandage were applied and patient went to recovery in good condition. Sponge instrument and needle counts were correct.
[2025-04-13] MEDS: HYDROcodone-acetaminophen 5-325 mg Tablet PO (11:46)
--- NOTE | 2025-04-13 12:07 | ANE.PACU2 ---
Inpatient post-anesthesia follow up: Airway intact: Yes Vital signs: Temperature Pulse Rate Respiratory Rate Blood Pressure Pulse Oximetry Oxygen Delivery Me thod Room Air Oxygen Flow Rate Fraction of Inspir ed Oxygen Hydration adequate: Yes Nausea and vomiting: No Pain level: 1 Mental status: Baseline
--- NOTE | 2025-04-13 12:16 | PC.NURSE ---
Patient registered under incorrect account in centricity. Tracing and vitals from [id number] located under [id number].
[2025-04-13] MEDS: ketorolac 30 mg/mL INJ IVP ×2 (13:50→21:56)
[2025-04-13] MEDS: dextrose 5%-lactated ringers 1,000 ML 125 ML IV (18:27)
[2025-04-13] MEDS: ferrous sulfate EC 325 mg Tablet PO (18:28)
[2025-04-13] MEDS: docusate sodium 100 mg Capsule PO (18:28)
[2025-04-13 23:04] LABS: Mean Corpuscular HGB Conc 32.8 g/dL (30-55); Mean Corpuscular Hemoglobin 28.9 pg (27-33); Mean Platelet Volume 11.9 fL (7.4-10.4); Platelet Count 160 10^3/cmm (157-399); Red Blood Count 4.09 10^6/uL (3.85-5.65); Red Cell Distribution Width 13.5 % (12.1-15.1); White Blood Count 11.05 10^3/uL (3.29-11.43)
[2025-04-14] MEDS: HYDROcodone-acetaminophen 5-325 mg Tablet PO ×3 (02:44→23:18)
[2025-04-14 04:05] VITALS: BP 112/76; PULSE 66; RESP 17; TEMP 37.1; O2SAT 99
--- NOTE | 2025-04-14 07:40 | PM.OBGYPN ---
NURSE RESEARCH Subjective Subjective: Interval history: This is a 34-year-old G2, P2 that is postop day 1 from repeat low-transverse with tubal ligation. Patient denies any significant concerns today. The patient states that she has passed gas and would like to advance her diet. Patient states her pain is controlled. The patient is up and ambulating and urinating without difficulty. Vital signs have been stable. Post /CS: Patient comments OB post-: no complaints, incisional pain and flatus present [place] baby status: doing well Vitals/I&O/Wt Last Vital Signs Temp 98.7 F 04/14/25 04:05 Pulse 66 04/14/25 04:05 Resp 17 04/14/25 04:05 BP 112/76 04/14/25 04:05 Pulse Ox 99 04/14/25 04:05 O2 Del Method Room Air 04/14/25 04:05 04/13/25 04/14/25 04/14/25 22:59 06:59 14:59 Intake Total 1000 / 0 Output Total 500 / 610 785 / 1395 Balance -500 / 440 215 / 655 Weight last 48 hrs Weight 128.82 kg Physical Exam Narrative: Alert and oriented, sitting on the edge of the bed, heart regular rate and rhythm, lungs clear to auscultation bilaterally, abdomen is mildly tender and no significant incisional drainage noted, extremities have 1+ edema but no calf tenderness Urinary Catheter Management: Carbajal Latex Free: Cath Placed During This Visit: yes, but has since been removed by the nurse Reason for Continuing Indwelling Catheter: Decision to DC Catheter Urinary Catheter Date of Insertion: 04/13/25 Urinary Catheter Time of Insertion: 07:30 Date Urinary Catheter Removed: 04/14/25 Time Urinary Catheter Discontinued: 04:05 Data 04/13/25 22:54 A&P Assessment and plan (1) Type 2 diabetes mellitus: Certain that the patient likely has underlying diabetes given the early glucose returns. Plan to continue metformin after discharge. (2) Encounter for consultation for female sterilization: Doing well after tubal. (3) delivery delivered: No postop concerns. Continue routine care. PDMP PDMP Reviewed: Not Reviewed Attestations Medical Necessity Statement*: Patient admitted for repeat low-transverse . Anticipate 2 midnight stay. Discharge likely tomorrow Coding Level of Care Code Acute Code for Chg Fwd Diagnoses Type 2 diabetes mellitus without complication, without long-term current use of insulin E11.9 Diabetes mellitus [employer] insulin use: without [employer] use Diabetes mellitus complication status: without complication Encounter for consultation for female sterilization Z30.09 delivery delivered O82
[2025-04-14] MEDS: ibuprofen 800 mg tablet PO ×2 (08:48→14:04)
[2025-04-14] MEDS: PRENATAL VIT NO.130/IRON/FOLIC 1 EACH TABLET PO (08:48)
[2025-04-14] MEDS: ferrous sulfate EC 325 mg Tablet PO (08:48)
[2025-04-14] MEDS: docusate sodium 100 mg Capsule PO ×2 (08:48→18:01)
[2025-04-14 16:48] VITALS: BP 122/76; PULSE 81; RESP 16; TEMP 36.8; O2SAT 100
[2025-04-14 21:17] VITALS: BP 119/78; PULSE 84; RESP 16; TEMP 36.7; O2SAT 98
[2025-04-15 04:35] VITALS: BP 104/65; PULSE 73; RESP 16; TEMP 36.8; O2SAT 100
[2025-04-15] MEDS: HYDROcodone-acetaminophen 5-325 mg Tablet PO ×2 (05:51→09:22)
--- NOTE | 2025-04-15 06:54 | PM.OBGYDC ---
Discharge Providers VENDING TECHNICIAN Date of Admission: 04/13/25 04:57 Date of Discharge: 04/15/25 Attending Provider at Admission: Renetta Mederos MD Attending Provider at Discharge: Renetta Mederos MD Primary Care Provider: MU Mcgovern Diagnoses at Discharge Discharge Diagnosis (1) Type 2 diabetes mellitus: Status: Acute Qualifiers: Diabetes mellitus superintendent terminal insulin use: without group home use Diabetes mellitus complication status: without complication Qualified Code(s): E11.9 - Type 2 diabetes mellitus without complications (2) Encounter for consultation for female sterilization: Status: Acute (3) delivery delivered: Status: Acute Reason for Visit Reason for Visit: C Section Hospital Course Hospital Course This is a 34-year-old G2, P2 that presented at 39 weeks for repeat low-transverse with tubal ligation. The patient underwent and tubal ligation without complication. Patient's care was unremarkable. Information Peripartum Data: Infant Delivery Method: complications: none Physical Exam Narrative: Alert and oriented, sitting on the edge of the bed, heart regular rate and rhythm, lungs clear to auscultation bilaterally, abdomen is mildly tender and incisions clean dry, and intact, extremities have 1+ edema but no calf tenderness Urinary Catheter Management: Carbajal Latex Free: Cath Placed During This Visit: yes, but has since been removed by the nurse Reason for Continuing Indwelling Catheter: Decision to DC Catheter Urinary Catheter Date of Insertion: 04/13/25 Urinary Catheter Time of Insertion: 07:30 Date Urinary Catheter Removed: 04/14/25 Time Urinary Catheter Discontinued: 04:05 History History History 2 Term 1 0 Miscarriages/Ectopic 0 Living Children 1 Discharge Data Studies Completed and Pending Pending at discharge Category Date Time Status Pathology: Surgical [PTH] Routine Pth 04/13/25 13:24 Received Laboratory Results WBC 11.05 10^3/uL (3.29-11.43) 04/13/25 22:54 RBC 4.09 10^6/uL (3.85-5.65) 04/13/25 22:54 Hgb 11.80 g/dL (11.27-16.99) 04/13/25 22:54 Hct 36.0 % (36-47) 04/13/25 22:54 MCV 88.0 fl (85-98) 04/13/25 22:54 MCH 28.9 pg (27-33) 04/13/25 22:54 MCHC 32.8 g/dL (30-55) 04/13/25 22:54 RDW 13.5 % (12.1-15.1) 04/13/25 22:54 Plt Count 160 10^3/cmm (157-399) 04/13/25 22:54 MPV 11.9 fL (7.4-10.4) H 04/13/25 22:54 Neut % (Auto) 70.8 % 04/13/25 06:00 Lymph % (Auto) 20.8 % 04/13/25 06:00 [place] % (Auto) 6.6 % 04/13/25 06:00 Eos % (Auto) 1.0 % 04/13/25 06:00 Baso % (Auto) 0.2 % 04/13/25 06:00 Neut # (Auto) 8.52 10^3/uL (1.8-7.7) H 04/13/25 06:00 Lymph # (Auto) 2.5 10^3/uL (0.8-4.8) 04/13/25 06:00 [place] # (Auto) 0.8 10^3/uL (0.2-0.9) 04/13/25 06:00 Eos # (Auto) 0.1 10^3/uL (0.0-0.8) 04/13/25 06:00 Baso # (Auto) 0.0 10^3/uL (0.0-0.1) 04/13/25 06:00 Nucleated RBC % (auto) 0 % 04/13/25 06:00 Nucleated RBCs # 0.0 /100WBC 04/13/25 06:00 Blood Type A Positive 04/13/25 06:00 Rho(D) Type Rh positive 04/13/25 06:00 Antibody Screen Negative 04/13/25 06:00 Vitals Last Vital Signs Temp 98.3 F 04/15/25 04:35 Pulse 73 04/15/25 04:35 Resp 16 04/15/25 04:35 BP 104/65 04/15/25 04:35 Pulse Ox 100 04/15/25 04:35 O2 Del Method Room Air 04/15/25 04:35 Results Labs OB ([facility]): Obstetrics US 01/13/25 Obstetrics US/Biophysical Profile 04/01/25 Blood Type A Positive 04/13/25 Antibody Screen Negative 04/13/25 Hct, (36-47) 36.0 % 04/13/25 Hgb, (11.27-16.99) 11.80 g/dL 04/13/25 Rho(D) Type Rh positive 04/13/25 Plt Count, (157-399) 160 10^3/cmm 04/13/25 Hep Bs Antigen, (Nonreactive) Non-reactive 09/24/24 Hepatitis C Antibody, (Nonreactive) Non-reactive 09/24/24 Rubella IgG Antibody, (0.0-10.0) 33.6 IU/mL H 09/24/24 RPR, (Nonreactive) Nonreactive 09/24/24 HIV 1&2 Ab & HIV 1 Ag, (Non-Reactiv) Non-reactive 09/24/24 TSH, (0.27-4.20) 2.05 uIU/mL 09/24/24 C.trachomatis RNA (TMA), (NOT DETECTED) Not detected 09/24/24 N.gonorrhoeae RNA (TMA), (NOT DETECTED) Not detected 09/24/24 T. vaginalis Amp RNA, (NOT DETECTED) Not detected 09/24/24 Chlamydia/GC Comment See note 09/24/24 Glucose 1 Hr 50 gm, (85-140) 189 mg/dL H 10/16/24 Hemoglobin A1c, (4.0-6.0) 5.1 % 09/24/24 Ser , Semi-Qnt 12269.00 mIU/mL 09/03/24 HCG, Qual, (Negative) Negative 11/07/23 Urine Opiates Screen, (Negative) Negative ng/mL 09/24/24 Ur Barbiturates Screen, (Negative) Negative ng/mL 09/24/24 Ur Phencyclidine Scrn, (Negative) Negative ng/mL 09/24/24 Ur Amphetamines Screen, (Negative) Negative ng/mL 09/24/24 U Benzodiazepines Scrn, (Negative) Negative ng/mL 09/24/24 Urine Cocaine Screen, (Negative) Negative ng/mL 09/24/24 U Marijuana (THC) Screen, (Negative) Negative ng/mL 09/24/24 Micro Urine Specimen 09/24/24 Pap Smear Interpret See note 10/13/24 Discharge Plan Discharge Patient Disposition: Home Condition: Stable Prescriptions: New hydrocodone-acetaminophen 5-325 mg Tablet 1 - 2 tab PO Q4H PRN (Reason: Moderate To Severe Pain) Qty: 20 0RF metformin 500 mg Tablet Extended Release 24 Hr 1,000 mg PO BREAKFAST Qty: 90 0RF Continued (DME) blood-glucose meter Misc See Rx Instructions .Route Qty: 1 0RF Rx Instructions: As directed (DME) Blood Glucose Test Strip See Rx Instructions .Route Qty: 100 3RF Rx Instructions: once daily (DME) lancets 31 gauge misc See Rx Instructions .Route Qty: 100 3RF Rx Instructions: once daily (DME) Dexcom G6 Transmitter Device See Rx Instructions .Route Qty: 1 0RF Rx Instructions: As directed Zyrtec 10 mg capsule 10 mg PO DAILY PRN (Reason: allergy symptoms) Qty: 30 11RF albuterol sulfate 90 mcg/actuation HFA aerosol inhaler 2 puff inhalation QID PRN (Reason: shortness of breath or wheezing) Qty: 6.7 2RF Discharge Orders: Discharge Order (Routine); Ordered 04/15/25 Ordered By: London Massey Referrals: Renetta Mederos MD [Physician, Family Practice] - 7-10 days Discharge Diet: Usual diet Discharge Activity: Limit activity as instructed Patient Instructions: Depression (DC), Bleeding (DC), Preeclampsia and Eclampsia After Delivery (GEN), Hemorrhage (DC), OB - [place]osa M, OB Discharge Report, OB Food/Drug Interaction Guide, Opioid Safety, OB Home Care, OB Proud Parent Packet Discharge Attestations VENDING TECHNICIAN Time Spent in Discharge Care*: less than 30 min Coding Level of Care Code Acute Code for Chg Fwd Diagnoses Type 2 diabetes mellitus without complication, without long-term current use of insulin E11.9 Diabetes mellitus superintendent terminal insulin use: without group home use Diabetes mellitus complication status: without complication Encounter for consultation for female sterilization Z30.09 delivery delivered O82
[2025-04-15] MEDS: ferrous sulfate EC 325 mg Tablet PO (09:22)
[2025-04-15] MEDS: docusate sodium 100 mg Capsule PO (09:22)
[2025-04-15 09:38] VITALS: BP 130/76; PULSE 71; RESP 17; TEMP 36.8; O2SAT 98
== END 2025-04-15 09:38 | disposition home or self-care (01) | DRG 785 ==
PROVIDERS: Admitting Provider Family Medicine; PCP Nurse Practitioner Family; Visit Provider Family Medicine
PROC: 10D00Z1 Extraction of Products of Conception, Low, Open Approach (ICD-10-PCS; CPT 59514; principal; 2025-04-13 07:00)
DX: O24.12 Pre-existing type 2 diabetes mellitus, in childbirth (principal); Z3A.39 39 weeks gestation of pregnancy; Z37.0 Single live birth; Z79.84 Long term (current) use of oral hypoglycemic drugs; N83.202 Unspecified ovarian cyst, left side; O75.89 Other specified complications of labor and delivery; O34.211 Maternal care for low transverse scar from previous cesarean delivery; N85.8 Other specified noninflammatory disorders of uterus; E11.9 Type 2 diabetes mellitus without complications
CPT/HCPCS: 36415; 51702; 59409; 85025; 85027; 86850; 86900; 88302; 96374; 96376; J1885; J2274; J2371; J2405; J2765; J3010; J3490; J7030; J7121; J9999

== ENCOUNTER → 2025-05-17 10:13 | Outpatient (BNVA) | payer MEDICAID, SELFPAY | PROVIDERS: PCP Nurse Practitioner Family; Visit Provider Nurse Practitioner Family | DX: E11.9 Type 2 diabetes mellitus without complications (principal); E61.1 Iron deficiency | CPT/HCPCS: 80053; 80061; 82728; 83036; 83550; 84443; 85025 ==

== ENCOUNTER → 2025-07-20 10:41 | Outpatient (BNVA) | payer MEDICAID, SELFPAY | PROVIDERS: PCP Nurse Practitioner Family; Visit Provider Nurse Practitioner Family | DX: R42 Dizziness and giddiness (principal); R23.2 Flushing; R20.2 Paresthesia of skin | CPT/HCPCS: 80053; 82607; 84443; 85025 ==

== ENCOUNTER 2025-07-21 02:03 | Emergency (ER) | payer SELFPAY ==
[2025-07-21 02:10] VITALS: BP 144/75; PULSE 67; RESP 16; TEMP 36.7; O2SAT 100; BMI 43.0
--- NOTE | 2025-07-21 02:11 | XRR_ITS ---
PROCEDURE INFORMATION: Exam: XR Chest Exam date and time: 07/21/2025 2:17 AM Age: 34 years old Clinical indication: Other: Weakness; Additional info: Shortness of breath TECHNIQUE: Imaging protocol: Radiologic exam of the chest. Views: 1 view. COMPARISON: CR XR chest 1V portable [id number] 03/28/2024 4:13 PM FINDINGS: Lungs: Unremarkable. No consolidation. Pleural spaces: Unremarkable. No pleural effusion. No pneumothorax. Heart/Mediastinum: Unremarkable. No cardiomegaly. Bones/joints: Unremarkable. XR/XR chest 1V portable [id number] IMPRESSION: No acute findings.
--- NOTE | 2025-07-21 02:16 | W.ED.GENADLT ---
HPI - General Adult General: Chief complaint: General Medical Stated complaint: Mouth Tingeling\Hot Flashes\Weakness Time Seen by Provider: 07/21/25 02:06 History of Present Illness: 34-year-old female with a history of obesity and diabetes who presents to the emergency room with multiple complaints. She was actually seen in clinic earlier today. Says she just was not feeling better so she came to the emergency room. She says she has had tingling around her lips. She is felt generally weak. She has been having hot and cold flashes. Says she has had a wet cough. Malaise. No known fevers. No chest pain. No abdominal pain. Related Data Previous Rx's ?Medication ?Instructions ?Recorded cetirizine 10 mg capsule (Zyrtec) 10 mg PO DAILY PRN allergy 02/27/24 symptoms #30 caps albuterol sulfate 90 mcg/actuation 2 puff inhalation QID PRN 07/17/24 aerosol inhaler shortness of breath or wheezing #6.7 grams blood sugar diagnostic (Blood #100 ea 08/26/24 Glucose Test strips) blood-glucose meter #1 ea 08/26/24 lancets 31 gauge #100 ea 08/26/24 blood-glucose transmitter (Dexcom #1 ea 11/10/24 G6 Transmitter device) hydrocodone 5 mg-acetaminophen 325 1 - 2 tab PO Q4H PRN Moderate To 04/15/25 mg tablet Severe Pain #20 tabs ciprofloxacin 0.3 %-dexamethasone 4 drp otic (ear) BID 7 days #7.5 mL 05/17/25 0.1 % ear drops,suspension Allergies Allergy/AdvReac Type Severity Reaction Status Date / Time cefdinir Allergy ALGY-Rash Verified 07/20/25 08:55 clavulanic acid (From Allergy extremely Verified 07/20/25 08:55 Augmentin) itchy shellfish derived Allergy unknown/diagnosed Verified 07/20/25 08:55 when younger Sulfa (Sulfonamide Allergy hives Verified 07/20/25 08:55 Antibiotics) Review of Systems Narrative: Constitutional symptoms: Negative except as documented in HPI. Skin symptoms: Negative except as documented in HPI. Eye symptoms: Negative except as documented in HPI. ENMT symptoms: Negative except as documented in HPI. Respiratory symptoms: Negative except as documented in HPI. Cardiovascular symptoms: Negative except as documented in HPI. Gastrointestinal symptoms: Negative except as documented in HPI. Genitourinary symptoms: Negative except as documented in HPI. Musculoskeletal symptoms: Negative except as documented in HPI. Neurologic symptoms: Negative except as documented in HPI. Psychiatric symptoms: Negative except as documented in HPI. Endocrine symptoms: Negative except as documented in HPI. 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 Surgical History History of section complicating Hx of cholecystectomy 2013 H/O left wrist surgery 2 different surgeries, 2009 & 2010 History of foot surgery right foot, 2015 Family History Mother Diabetes Ovarian cyst Grandfather Diabetes maternal Hypertension maternal Stroke maternal Grandmother Diabetes maternal Denies family history of CAD (coronary artery disease) Clotting disorder Hyperlipidemia Chronic kidney disease (CKD) Anesthesia complication Bleeding disorder Cancer Social History Smoking and tobacco/nicotine status: never used tobacco/nicotine Alcohol intake: never Substance/Drug Use: never Female Reproductive History: Date of last menstrual period: 06/24/25 Para: 1 Physical Exam Narrative: EXAM NARRATIVE: General: Alert, no acute distress. Skin: Warm, dry. Head: Normocephalic, atraumatic. Neck: Supple, trachea midline. Eye: Extraocular movements are intact. Ears, nose, mouth and throat: mucosa moist. Cardiovascular: Regular, Normal peripheral perfusion. Respiratory: Lungs are clear to auscultation, respirations are non-labored, breath sounds are equal, Symmetrical chest wall expansion. Gastrointestinal: Soft, Nontender, Non distended Musculoskeletal: Normal ROM, no deformity. Neurological: Alert and oriented, No focal neurological deficit observed. Psychiatric: Cooperative, appropriate mood & affect. Course Vital Signs: Vital signs: Vital Signs Temperature 98.1 F 07/21/25 02:10 Pulse Rate 67 07/21/25 02:10 Respiratory Rate 16 07/21/25 02:10 Blood Pressure 144/75 07/21/25 02:10 Pulse Oximetry 100 07/21/25 02:10 Oxygen Delivery Me thod Room Air 07/21/25 02:10 MDM - General Adult Medical Decision Making Medical decision making: Differential diagnosis for patient presenting with generalized weakness including but not limited to and based on the above HPI, review of systems and physical exam: Sepsis. Dehydration. Renal failure. Electrolyte abnormalities. Anemia. Congestive heart failure. Hypotension. Coronary syndrome. Hepatitis. Cirrhosis. Infections such as pneumonia, urinary tract infection, Tick bourne illness, Cellulitis, Viral infections including influenza and Covid-19. Workup: labwork and lab/exam driven imaging ordered to evaluate, rule in and rule out above pathologies. EKG: Time 3:05 AM. Rate 60. Normal sinus rhythm, No ST-T changes, no ectopy, normal UT & QRS intervals, This was reviewed and interpreted by myself the ER physician at 3:10 AM. Chest x-ray: No acute process. No infiltrate. No pneumothorax. This was reviewed and interpreted by myself the emergency room physician. I also reviewed the radiology report. Lab Review: Laboratory results were reviewed and interpreted by myself the emergency room physician. No leukocytosis. No anemia. No renal failure. Urinalysis negative for infection. Flu COVID RSV are negative. I reviewed the patient's medical record. Reexamination: Patient remained stable. No increased work of breathing. No altered mental status. No focal motor deficits. Assessment and plan: Viral upper respiratory illness Dizziness - Discharged home - Discussed plan with patient. Answered any questions. - Evaluation and treatment of this problem were appropriate in the emergency setting. Lab Data 07/21/25 02:35 07/21/25 03:05 Radiology Impressions Chest X-Ray 07/21/25 02:11 IMPRESSION: No acute findings. Laboratory Results WBC 8.49 10^3/uL (3.29-11.43) 07/21/25 02:35 RBC 4.73 10^6/uL (3.85-5.65) 07/21/25 02:35 Hgb 13.50 g/dL (11.27-16.99) 07/21/25 02:35 Hct 41.3 % (36-47) 07/21/25 02:35 MCV 87.3 fl (85-98) 07/21/25 02:35 MCH 28.5 pg (27-33) 07/21/25 02:35 MCHC 32.7 g/dL (30-55) 07/21/25 02:35 RDW 12.9 % (12.1-15.1) 07/21/25 02:35 Plt Count 210 10^3/cmm (157-399) 07/21/25 02:35 MPV 11.5 fL (7.4-10.4) H 07/21/25 02:35 Neut % (Auto) 55.6 % 07/21/25 02:35 Lymph % (Auto) 33.5 % 07/21/25 02:35 Wood % (Auto) 7.1 % 07/21/25 02:35 Eos % (Auto) 2.8 % 07/21/25 02:35 Baso % (Auto) 0.8 % 07/21/25 02:35 Neut # (Auto) 4.72 10^3/uL (1.8-7.7) 07/21/25 02:35 Lymph # (Auto) 2.8 10^3/uL (0.8-4.8) 07/21/25 02:35 Wood # (Auto) 0.6 10^3/uL (0.2-0.9) 07/21/25 02:35 Eos # (Auto) 0.2 10^3/uL (0.0-0.8) 07/21/25 02:35 Baso # (Auto) 0.1 10^3/uL (0.0-0.1) 07/21/25 02:35 Nucleated RBC % (auto) 0 % 07/21/25 02:35 Nucleated RBCs # 0.0 /100WBC 07/21/25 02:35 Sodium 139 mmol/L (136-145) 07/21/25 03:05 Potassium 4.2 mmol/L (3.5-5.1) 07/21/25 03:05 Chloride 103 mmol/L (98-107) 07/21/25 03:05 Carbon Dioxide 25 mmol/L (22-29) 07/21/25 03:05 Anion Gap 15.2 (5-19) 07/21/25 03:05 BUN 12 mg/dL (6-20) 07/21/25 03:05 Creatinine 0.6 mg/dL (0.5-0.9) 07/21/25 03:05 GFR Calculation 115.9 mL/min (90-130) 07/21/25 03:05 Glucose 102 mg/dL (65-115) 07/21/25 03:05 Calculated Osmolality 288 mOsm/kg (285-295) 07/21/25 03:05 Calcium 9.5 mg/dL (8.5-10.5) 07/21/25 03:05 Total Bilirubin 0.3 mg/dL (0.15-1.2) 07/21/25 03:05 AST 13 U/L (0-32) 07/21/25 03:05 ALT 16 U/L (0-33) 07/21/25 03:05 Alkaline Phosphatase 67 U/L (35-105) 07/21/25 03:05 Total Protein 7.5 g/dL (6.6-8.7) 07/21/25 03:05 Albumin 4.3 g/dL (3.5-5.2) 07/21/25 03:05 Globulin 3.2 g/dL (1.3-4.6) 07/21/25 03:05 HCG, Qual Negative (Negative) 07/21/25 02:35 Urine Color Yellow (Yellow) 07/21/25 02:38 Urine Appearance Cloudy (CLEAR) A 07/21/25 02:38 Urine pH 7.0 (5-7) 07/21/25 02:38 Ur Specific [place] 1.011 (1.005-1.030) 07/21/25 02:38 Urine Protein Negative (Negative) 07/21/25 02:38 Urine Glucose (UA) Negative (Normal) 07/21/25 02:38 Urine Ketones Negative (Negative) 07/21/25 02:38 Urine Blood 2+ (Negative) A 07/21/25 02:38 Urine Nitrate Negative (Negative) 07/21/25 02:38 Urine Bilirubin Negative (Negative) 07/21/25 02:38 Urine Urobilinogen 0.2 mg/dL (Negative) 07/21/25 02:38 Ur Leukocyte Esterase Trace (Negative) A 07/21/25 02:38 Urine RBC 6-10 /hpf (0-2) 07/21/25 02:38 Urine WBC 6-10 /hpf (0-5) 07/21/25 02:38 Ur Squamous Epith Cells 15-25 /hpf (0-5) H 07/21/25 02:38 Amorphous Sediment Not Reportable 07/21/25 02:38 Urine Bacteria Trace /hpf (NONE) 07/21/25 02:38 Hyaline Casts 0-4 /lpf H 07/21/25 02:38 Influenza A (PCR) Negative (Negative) 07/21/25 02:38 Influenza Type B (PCR) Negative (Negative) 07/21/25 02:38 RSV (PCR) Negative (Negative) 07/21/25 02:38 SARS-CoV-2 (PCR) Negative (Negative) 07/21/25 02:38 All radiology interpretation(s) finalized by discharge Discharge Plan Discharge Patient Disposition: Home Clinical Impression: Viral upper respiratory illness, Generalized weakness, Dizziness Condition: Stable Prescriptions: No Action (DME) blood-glucose meter Misc See Rx Instructions .Route Qty: 1 0RF Rx Instructions: As directed (DME) Blood Glucose Test Strip See Rx Instructions .Route Qty: 100 3RF Rx Instructions: once daily (DME) lancets 31 gauge misc See Rx Instructions .Route Qty: 100 3RF Rx Instructions: once daily (DME) Dexcom G6 Transmitter Device See Rx Instructions .Route Qty: 1 0RF Rx Instructions: As directed ciprofloxacin-dexamethasone 0.3-0.1 % drops,suspension 4 drp otic (ear) BID 7 Days Qty: 7.5 0RF Zyrtec 10 mg capsule 10 mg PO DAILY PRN (Reason: allergy symptoms) Qty: 30 11RF albuterol sulfate 90 mcg/actuation HFA aerosol inhaler 2 puff inhalation QID PRN (Reason: shortness of breath or wheezing) Qty: 6.7 2RF hydrocodone-acetaminophen 5-325 mg Tablet 1 - 2 tab PO Q4H PRN (Reason: Moderate To Severe Pain) Qty: 20 0RF Discharge Orders: Discharge ED (Routine); Ordered 07/21/25 Ordered By: Anitha Benson Referrals: Yasmin Bains FNP-C [Primary Care Provider, Family Practice] Discharge Diet: Usual diet Discharge Activity: Increase activity as tolerated Patient Instructions: Upper Respiratory Infection (ED), Opioid Safety, Pain Management, Patient Portal & Sugey Instructions Activity Restrictions/Additional Instructions: [facility] [place] [facility]. You have been screened and evaluated and felt safe for discharge. Health conditions do change or evolve sometimes and as such it is important that you follow up with your Primary Doctor to be re checked, 3-5 days is a general good time frame for follow up. You are always welcome to return to the ED for re assessment if your symptoms are worsening or you have new concerns Print Language: Persian Coding Level of Care Code ED Psychic Reader for Sohan Mobley
[2025-07-21 02:43] LABS: Hematocrit 41.3 % (36-47); Hemoglobin 13.50 g/dL (11.27-16.99); Mean Corpuscular HGB Conc 32.7 g/dL (30-55); Mean Corpuscular Hemoglobin 28.5 pg (27-33); Mean Corpuscular Volume 87.3 fl (85-98); Nucleated Red Blood Cells % 0 %; Platelet Count 210 10^3/cmm (157-399); Red Blood Count 4.73 10^6/uL (3.85-5.65); White Blood Count 8.49 10^3/uL (3.29-11.43)
[2025-07-21 02:44] LABS: HCG Qualitative Urine. Negative (Negative)
--- NOTE | 2025-07-21 03:05 | ECG_ITS ---
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 Measurements Intervals [place] Rate: 60 P: 8 VA: 161 QRS: 20 QRSD: 94 T: 14 QT: 423 QTc: 425 Interpretive Statements SINUS RHYTHM Compared to ECG 08/18/2024 00:31:06 Sinus arrhythmia no longer present T-wave abnormality no longer present Electronically Signed On 07-21-2025 13:44:13 CDT by Medina Coronado M.D. [email or web address]
[2025-07-21 03:19] LABS: Glucose Urine UA Negative (Normal); Nitrate Urine Negative (Negative); Specific Gravity, Urine 1.011 (1.005-1.030)
[2025-07-21 03:29] LABS: Alanine Aminotransferase 16 U/L (0-33); Albumin Level 4.3 g/dL (3.5-5.2); Alkaline Phosphatase 67 U/L (35-105); Anion Gap 15.2 (5-19); Aspartate Amino Transferase 13 U/L (0-32); Blood Urea Nitrogen 12 mg/dL (6-20); Calcium 9.5 mg/dL (8.5-10.5); Carbon Dioxide 25 mmol/L (22-29); Chloride 103 mmol/L (98-107); Creatinine Clr Calc Pharmacy 184.5673; Globulin 3.2 g/dL (1.3-4.6); Glucose 102 mg/dL (65-115); Osmolality Calculated 288 mOsm/kg (285-295); Potassium 4.2 mmol/L (3.5-5.1); Sodium 139 mmol/L (136-145); Total Protein 7.5 g/dL (6.6-8.7)
[2025-07-21 03:49] LABS: UA Slide Review UA Slide Review Perf
[2025-07-21 03:55] LABS: Respiratory Syncytial Virus Ce NEGATIVE (Negative); SARS-CoV-2 PCR NEGATIVE (Negative)
[2025-07-21 04:13] VITALS: BP 120/68; PULSE 61; RESP 16; O2SAT 99
== END 2025-07-21 04:22 | disposition home or self-care (01) ==
PROVIDERS: Emergency Provider Emergency Medicine; PCP Nurse Practitioner Family
DX: J06.9 Acute upper respiratory infection, unspecified (principal); R53.1 Weakness; R42 Dizziness and giddiness; Z11.52 Encounter for screening for COVID-19; E11.9 Type 2 diabetes mellitus without complications
CPT/HCPCS: 36415; 71045; 80053; 81001; 81025; 85025; 87637; 93005; 99285

== ENCOUNTER 2025-10-04 12:28 | Outpatient (CLI) | payer MEDICAID, SELFPAY ==
--- NOTE | 2025-10-04 12:45 | USCV_ITS ---
Talia Mckinley Age: 35 Gender: F : 1990 Exam Date: 10/04/2025 12:53 Ordering Phys: David Johnson M.D ([email or web address]) Technologist: Exam Location: [facility] – [place] Indication: cp sob BP: 120 / 70 HR: 63 Rhythm: Sinus Technical Quality: Adequate MEASUREMENTS (Male / Female) Normal Values 2D ECHO LV Diastolic Diameter PLAX 4.8 cm 4.2 - 5.9 / 3.9 - 5.3 cm IVS Diastolic Thickness 1.2 cm 0.6 - 1.0 / 0.6 - 0.9 cm IVS Systolic Thickness 1.8 cm LVPW Diastolic Thickness 1.7 cm 0.6 - 1.0 / 0.6 - 0.9 cm LVPW Systolic Thickness 1.7 cm LVOT Diameter 2.0 cm LV Ejection Fraction 2D Teich 65.3 % LV Ejection Fraction MOD 4C 70.8 % LV Ejection Fraction MOD 2C 64.0 % LV Ejection Fraction 2C AL 63.1 % LA Diameter 3.0 cm RA Systolic Volume 4C AL 50.0 ml RA Systolic Volume 4C MOD 49.2 ml LA Sys Volume AL 59.9 cm cubed LA Sys Volume Index AL 24.4 cm cubed/m squared Aorta at Sinotubular Diameter 2.8 cm IVC Diameter 1.6 cm M-MODE LA Ao Ratio MM 1.2 AV Cusp Separation MM 2.6 cm DOPPLER AV Peak Velocity 124.7 cm/s LVOT Peak Velocity 99.0 cm/s AV Area Cont Eq vti 2.7 cm squared AV Area Cont Eq pk 2.4 cm squared MV Peak Velocity 113.0 cm/s MV Area PHT 3.4 cm squared Mitral E to A Ratio 1.8 TR Peak Velocity 186.0 cm/s TR Peak Gradient 13.8 mmHg TV Peak E Velocity 90.0 cm/s PV Peak Velocity 156.0 cm/s FINDINGS Left Ventricle Normal left ventricular size and systolic function, EF of 60- 65%. No regional wall motion abnormalities. Right Ventricle Normal in size and function Right Atrium Normal in size Left Atrium Normal in size IA Septum Grossly normal Mitral Valve Structurally normal mitral valve. Mild mitral regurgitation. Aortic Valve Structurally normal aortic valve. No significant stenosis or regurgitation. Tricuspid Valve Insufficient TR jet to calculate RVSP. Pulmonic Valve Not well visualized Pericardium Normal Aorta Normal in size IVC Appears to be normal CONCLUSIONS LV systolic function is normal with EF of 60-65%. Mild mitral regurgitation David Johnson MD (Electronically Signed) Final Date: 16 October 2025 14:26 S
== END 2025-10-04 12:29 | disposition home or self-care (01) ==
LOC: RAD 12:29
PROVIDERS: PCP Nurse Practitioner Family; Visit Provider Internal Medicine
DX: R07.9 Chest pain, unspecified (principal); R06.02 Shortness of breath; I34.0 Nonrheumatic mitral (valve) insufficiency
CPT/HCPCS: 93306

== ENCOUNTER → 2025-10-14 15:00 | Outpatient (BNVA) | payer MEDICAID, SELFPAY | PROVIDERS: PCP Nurse Practitioner Family; Visit Provider Nurse Practitioner Family | DX: G93.5 Compression of brain (principal); R76.0 Raised antibody titer | CPT/HCPCS: 82565; 82607; 82746; 84443 ==